=== PATIENT | female | born 1960 | race Caucasian/White ===

== ENCOUNTER 2016-12-16 18:05 | Emergency (ER) | payer BC ==
[2016-12-16 18:45] VITALS: BP 118/89; PULSE 94; O2SAT 96
--- NOTE | 2016-12-16 19:16 | ERPHSYRPT ---
- History of Present Illness Time Seen by Provider: 12/16/16 19:01 Source: patient Exam Limitations: no limitations Patient Subjective Stated Complaint: PT REPORTS SORES BEGINNING IN HER MOUTH A FEW DAYS AGO-STATES THEY ARE NOW SPREAD TO HER THROAT ET OUTSIDE HER MOUTH- PAINFUL TO SWALLOW Triage Nursing Assessment: PT PINK WARM ET [id number] NOTED AROUND LIPS ET CHIN TONGUE-NO DRAINAGE NOTED AT THSI TIME Physician History: FOR THE PAST 5 DAYS PT HAS HAD SORES IN HER MOUTH, A SORE THROAT AND LEFT EARACHE. PT WAS RX'ED VISCOUS LIDOCAINE 2 DAYS AGO BUT THE THROAT IS STILL SORE AND THE LESIONS ARE SPREADING TO THE CHIN. PT DENIES FEVER, CHEST PAIN, VOMITING. Allergies/Adverse Reactions: Iodinated Contrast- Oral and IV Dye [Iodinated Contrast Media - IV Dye] Allergy (Severe, Verified 12/16/16 18:45) Shortness of Breath anaphylaxis Penicillins Allergy (Unknown, Verified 12/16/16 18:45) Rash prednisone Allergy (Unknown, Verified 12/16/16 18:45) Swelling hydrocodone bitartrate [From Vicodin] Adverse Reaction (Mild, Verified 12/16/16 18:45) Vomiting Home Medications: Alprazolam 1 mg [Xanax 1 mg] 1 mg PO TID PRN 02/08/16 [History] Aspirin [Ecotrin] 81 mg PO DAILY 02/08/16 [History] Atorvastatin Calcium [Lipitor 40Mg] 40 mg PO HS 02/08/16 [History] Clopidogrel Bisulfate 75 mg [PLAVIX 75 MG Tablet] 75 mg PO DAILY 02/08/16 [History] Donepezil HCl 10 mg [Aricept 10 MG] 10 mg PO DAILY 02/08/16 [History] Duloxetine HCl 30 mg [Cymbalta 30 MG Capsule] 60 mg PO DAILY 02/08/16 [ History] Esomeprazole Magnesium [Nexium] 40 mg PO DAILY 02/08/16 [History] Famotidine [Pepcid] 40 mg PO DAILY 02/08/16 [History] Isosorbide Mononitrate 30 mg [Imdur 30 MG] 30 mg PO DAILY 02/08/16 [History ] Metoprolol Succinate 25 mg Xl* [Toprol-Xl 25MG Tablets] 25 mg PO DAILY [History] [place]-3 Fatty Acids/Fish Oil [Fish Oil 1,000 mg Capsule] 3,000 mcg PO DAILY 02/08/16 [History] Potassium Chloride 10 Meq Tab* [Klor Con 10 MEQ] 30 meq PO TID 02/08/16 [ History] Torsemide [Demadex] 30 mg PO BREAKFAST 02/08/16 [History] Torsemide 20 mg PO DINNER 02/09/16 [History] Hx Tetanus, Diphtheria Vaccination/Date Given: Yes Hx Influenza Vaccination/Date Given: No Hx Pneumococcal Vaccination/Date Given: No Immunizations Up to Date: Yes - Review of Systems Constitutional: No Fever Ears, Nose, & Throat: Ear Pain (LEFT EARACHE), Throat Pain, Other (MOUTH SORES) Respiratory: No Dyspnea Cardiac: No Chest Pain Abdominal/Gastrointestinal: No Abdominal Pain, No Vomiting Skin: Rash (CHIN) All Other Systems: Reviewed and Negative - Past Medical History Pertinent Past Medical History: Yes Neurological History: Stroke ENT History: Other Cardiac History: Other Respiratory History: Asthma, CHF, COPD Endocrine Medical History: No Pertinent History Musculoskeletal History: Degenerative Disk Disease GI Medical History: GERD History: Other Psycho-Social History: Anxiety, Depression Female Reproductive Disorders: No Pertinent History Other Medical History: Open heart surgery 2010, stint - Past Surgical History Past Surgical History: Yes Neuro Surgical History: No Pertinent History Cardiac: CABG, Cardiac Catheterization, Other Respiratory: No Pertinent History Gastrointestinal: Appendectomy, Bowel Surgery, Cholecystectomy, Exploratory Laparoscopy Genitourinary: No Pertinent History Musculoskeletal: Other Female Surgical History: Section, Hysterectomy Other Surgical History: BOWEL RESECTIONx3 for adhesions. ppins and plate placed in foot and then removed. TRIPLE AAA REPAIR WITH CABG - Social History Smoking Status: Never smoker Exposure to second hand smoke: No Drug Use: none Patient Lives Alone: No - Female History Hx Now: No - Nursing Vital Signs Nursing Vital Signs: Initial Vital Signs Temperature 98.9 F Temperature Source Oral Pulse Rate 94 Respiratory Rate 20 Blood Pressure [Right Arm] 118/89 Pain Intensity 9 - Physical Exam General Appearance: alert Eye Exam: PERRL/EOMI Ears, Nose, Throat Exam: moist mucous membranes, pharyngeal erythema (MILD), other (~ 2-3 MM DIAMETER ULCERS ON MUCOUS MEMBRANES) Neck Exam: normal inspection, full range of motion Respiratory Exam: normal breath sounds, airway intact Cardiovascular Exam: No friction rub Gastrointestinal/Abdomen Exam: soft, normal bowel sounds Back Exam: normal range of motion Extremity Exam: other (NO ANKLE EDEMA) Neurologic Exam: alert, cooperative Skin Exam: other (2-3 MM DIAMETER PAPULES ON CHIN) SpO2 Interpretation: normal SpO2: 96 Oxygen Delivery: Room Air - Course Nursing assessment & vital signs reviewed: Yes Ordered Tests: Medication Summary Discontinued Medications Generic Name Dose Route Start Last Admin Trade Name Freq PRN Reason Stop Dose Admin Clindamycin HCl 300 mg 12/16/16 19:18 Cleocin 150 Mg Capsule PO 12/16/16 19:19 STAT ONE Tramadol HCl 50 mg 12/16/16 19:18 Ultram 50 Mg PO 12/16/16 19:19 STAT ONE - Departure Time of Disposition: 19:29 Departure Disposition: Home Clinical Impression: HERPETIC GINGIVOSTOMATITIS, IMPETIGO, PHARYNGITIS Condition: Stable Critical Care Time: No Instructions: Impetigo, Pharyngitis/Tonsillopharyngitis -- Adult Additional Instructions: FOLLOW UP WITH PRIVATE DOCTOR TOMORROW. Prescriptions: Tramadol HCl 50 mg [Ultram 50 mg] 50 mg PO Q4H PRN PRN #14 tablet PRN Reason: Pain Clindamycin HCl 300 mg PO Q6H #40 capsule
[2016-12-16] MEDS ORDERED: ULTRAM 50 MG PO ONE (19:18)
[2016-12-16] MEDS ORDERED: CLEOCIN 150 MG CAPSULE PO ONE ×2 (19:18→19:29)
[2016-12-16] MEDS ORDERED: CLEOCIN 150 MG CAPSULE ONE ×2 (19:29→19:42)
[2016-12-16] MEDS ORDERED: ULTRAM 50 MG ONE (19:29)
== END 2016-12-16 19:53 | disposition home or self-care (01) ==
LOC: ED 18:05
DX: B00.2 Herpesviral gingivostomatitis and pharyngotonsillitis (principal); L01.00 Impetigo, unspecified; J02.9 Acute pharyngitis, unspecified
CPT/HCPCS: 99283; 99284; A9270-GY

== ENCOUNTER 2017-01-05 12:58 | Inpatient (IN) | payer BC ==
[2017-01-05 13:25] LABS: A-aADO2 37; ARTERIAL BLOOD GAS BASE EXCESS 1.7 (-2.0-2.0); ARTERIAL BLOOD GAS FIO2 21 %; ARTERIAL BLOOD GAS PO2 66 mmHg (75-100); ARTERIAL BLOOD GAS pH 7.45 (7.35-7.45); Lactic Acid 1.4 (0.4-2.0)
[2017-01-05 13:44] LABS: Mean Cell Volume 101.9 fl (78-100); Mean Platelet Volume 10.4 fl (6-9.5); Platelet Count 176 K/mm3 (150-450); Red Blood Count 3.22 M/mm3 (4.1-5.4); Red Cell Distribution Width 14.8 % (11.5-14.0); White Blood Count 10.8 K/mm3 (4.0-10.5)
[2017-01-05 13:48] LABS: Mean Corpuscular Hemoglobin 31.9 pg (26-32)
[2017-01-05] MEDS ORDERED: ROCEPHIN 1 Gm-D5w 50 ml Bag** 1 G/50 ML IVPB IV SCH (14:00)
[2017-01-05] MEDS ORDERED: Zithromax 500 MG/ 250 ML NaCl Premix 500 MG/250 ML IVPB IV SCH (14:00)
[2017-01-05] MEDS ORDERED: Zofran 4 MG/2 ML VIAL IV PRN (14:03)
[2017-01-05] MEDS ORDERED: TYLENOL 325 MG PO PRN (14:03)
[2017-01-05 14:07] LABS: ALBUMIN 3.2 g/dL (3.4-5.0); ALKALINE PHOSPHATASE 77 U/L (46-116); ANION GAP 12.6 MEQ/L (5-15); BLOOD UREA NITROGEN 10 mg/dL (9-20); CHLORIDE 105 mEq/L (98-107); Carbon Dioxide 25.8 mEq/L (21-32); Glucose 127 MG/DL (70-110); Potassium 3.4 mEq/L (3.5-5.1); SGOT/AST 25 U/L (15-37); SGPT/ALT 47 U/L (12-78); SODIUM 140 mEq/L (136-145); Total Protein 6.8 gm/dL (6.4-8.2)
--- NOTE | 2017-01-05 14:18 | PCM.HP ---
History of Present Illness - Chief Complaint Chief Complaint: Pneumonia Date: 01/05/17 History of Present Illness: is a 56 year old female. 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 She still has pain and itching and has developed an ulcer on her left cornea that she is following with optometry and using a patch , drops and ointment. She became very weak and chilling 2 days ago and fever yesterday. She was seen in clinic febrile and CXR showed pneumonia and cbc with bandemia and luekocytosis to 20K. She was started on Levaquin last night and was chilling all night and very short of breath this am and very weak and thus was admitted from home for failed outpatient therapy of her pneumonia. - Review of Systems Constitutional: Fever, Chills, Fatigue Eyes: No Symptoms Ears, Nose, & Throat: No Symptoms Respiratory: Cough, Short Of Breath Cardiac: No Chest Pain, No Edema, No Syncope Abdominal/Gastrointestinal: Nausea, No Abdominal Pain, No Vomiting, No Diarrhea Genitourinary Symptoms: No Dysuria Musculoskeletal: No Back Pain, No Neck Pain Skin: No Rash Neurological: Dizziness, Gait Changes, Other (left facial paralysis ), No Focal Weakness, No Sensory Changes Psychological: No Symptoms Endocrine: No Symptoms Hematologic/Lymphatic: No Symptoms Immunological/Allergic: No Symptoms Medications & Allergies Home Medications: Home Medication List Alprazolam 1 mg [Xanax 1 mg] 1 mg PO TID 01/05/17 [History Confirmed 01/05] Aspirin 81 gm Chew [Baby Aspirin 81 mg Chew] 81 mg PO DAILY 01/05/17 [ History Confirmed 01/05/17] Atorvastatin Calcium [Lipitor] 40 mg PO HS 01/05/17 [History Confirmed 01/05/17] Carboxymethylcell/Hypromellose [Genteal Gel Drops] 15 ml OP HS 01/05/17 [ History Confirmed 01/05/17] Ciprofloxacin 0.3% Ophth [Ciloxan OPHTH] 2.5 ml OP QID 01/05/17 [History Confirmed 01/05/17] Clopidogrel Bisulfate 75 mg [PLAVIX 75 MG Tablet] 75 mg PO DAILY 01/05/17 [History Confirmed 01/05/17] Esomeprazole Magnesium [Nexium] 40 mg PO DAILY 01/05/17 [History Confirmed 01/05] Famotidine [Pepcid] 40 mg PO DAILY 01/05/17 [History Confirmed 01/05/17] Gabapentin 300 mg PO TID 01/05/17 [History Confirmed 01/05/17] Isosorbide Mononitrate 30 mg [Imdur 30 MG] 30 mg PO DAILY 01/05/17 [ History Confirmed 01/05/17] Metoprolol Succinate [Toprol Xl] 25 mg PO DAILY 01/05/17 [History Confirmed ] [place]-3/Dha/Epa/Fish Oil [Fish Oil 1,000 mg Softgel] 3,000 mg PO DAILY 01/05/17 [History Confirmed 01/05/17] Polyethylene Glycol 3350 17 gm [Miralax Powder 17GM PACKET] 17 gm PO DAILY PRN 01/05/17 [History Confirmed 01/05/17] Potassium Chloride 10 Meq Tab* [Klor Con 10 MEQ] 30 meq PO DAILY 01/05/17 [ History Confirmed 01/05/17] Spironolactone 25 mg [Aldactone 25 MG] 25 mg PO BID 01/05/17 [History Confirmed 01/05/17] Torsemide [Demadex] 20 mg PO HS 01/05/17 [History Confirmed 01/05/17] Torsemide [Demadex] 30 mg PO DAILY 01/05/17 [History Confirmed 01/05/17] Tramadol HCl 50 mg [Ultram 50 mg] 50 mg PO Q4HPRN PRN 01/05/17 [History Confirmed 01/05/17] Allergies/Adverse Reactions: Allergies Allergy/AdvReac Type Severity Reaction Status Date / Time Iodinated Contrast- Oral and Allergy Severe Shortness Verified 12/16/16 18:45 IV Dye of Breath [Iodinated Contrast Media - IV Dye] Penicillins Allergy Unknown Rash Verified 12/16/16 18:45 prednisone Allergy Unknown Swelling Verified 12/16/16 18:45 hydrocodone bitartrate AdvReac Mild Vomiting Verified 12/16/16 18:45 [From Vicodin] - Past Medical History Past Medical History: Yes Neurological History: Seizures, Stroke ENT History: Other Cardiac History: Congestive Heart Failure, High Cholesterol, Hypertension, Other Respiratory History: Asthma, CHF, COPD Endocrine Medical History: No Pertinent History Musculoskelatal History: Degenerative Disk Disease GI Medical History: GERD History: Other Pyscho-Social History: Anxiety, Depression Reproductive Disorders: No Pertinent History Comment: Open heart surgery 2010, stint, ulcers in the L eye - Past Surgical History Past Surgical History: Yes Neuro Surgical History: No Pertinent History Cardiac History: CABG, Cardiac Catheterization, Cardiac Stent, Valve Replacement , Other Respiratory Surgery: No Pertinent History GI Surgical History: Appendectomy, Bowel Surgery, Cholecystectomy, Exploratory Laparoscopy Genitourinary Surgical Hx: No Pertinent History Musculskeletal Surgical Hx: Other Female Surgical History: Section, Hysterectomy Other Surgical History: BOWEL RESECTIONx3 for adhesions. ppins and plate placed in foot and then removed. TRIPLE AAA REPAIR WITH CABG. Valve Repair 2009 - Social History Smoking Status: Never smoker Exposure to second hand smoke: No Alcohol: None Drug Use: none - Physical Exam General Appearance: no apparent distress, alert Neurologic Exam: alert, oriented x 3, cooperative, normal mood/affect, sensation nml, facial droop (left sided complete CN VII palsy including left forhead.), slurred speech, No motor deficits Eye Exam: PERRL/EOMI, eyes nml inspection, other (unable to keep left eye closed ) Ears, Nose, Throat Exam: normal ENT inspection, TMs normal, pharynx normal, moist mucous membranes Neck Exam: normal inspection, non-tender, supple, full range of motion Respiratory Exam: normal breath sounds, lungs clear, No respiratory distress Cardiovascular Exam: regular rate/rhythm, normal heart sounds, normal peripheral pulses Gastrointestinal/Abdomen Exam: soft, normal bowel sounds, No tenderness, No mass Back Exam: normal inspection, normal range of motion, No CVA tenderness, No vertebral tenderness Extremity Exam: normal inspection, normal range of motion, pelvis stable Skin Exam: normal color, warm, dry, No rash Lymphatic Exam: No adenopathy Results - Labs Lab/Micro Results: Lab Results-Last 24 Hours 01/05/17 01/05/17 01/05/17 Range/Units 13:20 13:31 13:40 WBC 10.8 H (4.0-10.5) K/mm3 RBC 3.22 L (4.1-5.4) M/mm3 Hgb 10.3 L (12.0-16.0) gm/dl Hct 32.8 L (35-47) % MCV 101.9 H (78-100) fl MCH 31.9 (26-32) pg MCHC 31.4 L (32-36) g/dl RDW 14.8 H (11.5-14.0) % Plt Count 176 (150-450) K/mm3 MPV 10.4 H (6-9.5) fl Puncture Site LEFT BRACHIAL pCO2 37 (35-45) mmHg pO2 66 L (75-100) mmHg Base Excess 1.7 (-2.0-2.0) O2 Saturation 94.3 (94-100) g/dF ABG pH 7.45 (7.35-7.45) ABG HCO3 25.7 (22-28) ABG O2 Sat (Measured) 96.0 (95-100) % Josué Test NOT APPLICABLE A-a Gradient 37 a/A Ratio 0.64 Hemoglobin 10.9 Carboxyhemoglobin 1.2 (0.0-6.9) % THgb Methemoglobin 0.6 L (1.4-1.5) % Potassium 3.5 3.4 L (3.5-5.1) Temperature 37.0 C POC O2 Flow Rate 21 % Sodium 140 (136-145) mEq/L Chloride 105 (98-107) mEq/L Carbon Dioxide 25.8 (21-32) mEq/L Anion Gap 12.6 (5-15) MEQ/L BUN 10 (9-20) mg/dL Creatinine 0.86 (0.55-1.30) mg/dl Estimated GFR > 60 ML/MIN Glucose 127 H (70-110) MG/DL Lactic Acid 1.4 (0.4-2.0) Calcium 9.2 (8.5-10.1) mg/dL Total Bilirubin 0.50 (0.2-1.0) mg/dL AST 25 (15-37) U/L ALT 47 (12-78) U/L Alkaline Phosphatase 77 (46-116) U/L Serum Total Protein 6.8 (6.4-8.2) gm/dL Albumin 3.2 L (3.4-5.0) g/dL - Other Procedures and Tests Respiratory Therapy 01/05/17 14:03 Respiratory Therapy Consult ROUTINE Assessment/Plan (1) Pneumonia Current Visit: Yes Status: Acute Qualifiers: Laterality: right Lung location: upper lobe of lung Assessment & Plan: she was complaining of worsening shortness of breath and weakness at home on Levaquin stated yesterday no dose yet today wbc improving afebrile now will continue Levaquin for now and monitor symptoms inpatient for failed outpatient treatment expand coverage if worsening or not improving with her recent hospitalization at [facility] continue home meds lovenox for ppx is following with optometry in [place] for corneal ulcer continue the drops and ointment Code(s): J18.9 - PNEUMONIA, UNSPECIFIED ORGANISM (2) Grajeda's palsy Current Visit: Yes Status: Acute Code(s): G51.0 - GRAJEDA'S PALSY (3) Post herpetic neuralgia Current Visit: Yes Status: Acute Code(s): B02.29 - OTHER POSTHERPETIC NERVOUS SYSTEM INVOLVEMENT (4) Coronary artery disease Current Visit: Yes Status: Chronic Qualifiers: Coronary Disease-Associated Artery/Lesion type: [place] artery [place] vs. transplanted heart: [place] heart Associated angina: with stable angina Qualified Code(s): I25.119 - Atherosclerotic heart disease of [place] coronary artery with unspecified angina pectoris Code(s): I25.10 - ATHSCL HEART DISEASE OF [place] CORONARY ARTERY W/O ANG PCTRS (5) Chronic congestive heart failure Current Visit: Yes Status: Chronic Qualifiers: Congestive heart failure type: diastolic Qualified Code(s): I50.32 - Chronic diastolic (congestive) heart failure Code(s): I50.9 - HEART FAILURE, UNSPECIFIED (6) Anxiety Current Visit: Yes Status: Chronic Code(s): F41.9 - ANXIETY DISORDER, UNSPECIFIED (7) Hypertension Current Visit: Yes Status: Chronic Code(s): I10 - ESSENTIAL (PRIMARY) HYPERTENSION (8) CVA, old, cognitive deficits Current Visit: Yes Status: Chronic Code(s): I69.31 - COGNITIVE DEFICITS FOLLOWING CEREBRAL INFARCT * DO NOT USE * (9) Chronic stable angina Current Visit: Yes Status: Chronic Code(s): I20.9 - ANGINA PECTORIS, UNSPECIFIED
[2017-01-05] MEDS ORDERED: Sodium Chloride 0.9% 10 ML FLUSH Syringe IV PRN (14:32)
[2017-01-05] MEDS ORDERED: Miralax Powder 17GM PACKET PO PRN (14:34)
[2017-01-05 14:38] LABS: Total Cells Counted 100
[2017-01-05 14:39] LABS: Platelet Estimate NORMAL (NORMAL)
[2017-01-05] MEDS: ENOXAPARIN SODIUM SQ SCH (14:58)
[2017-01-05] MEDS: Levofloxacin 500MG/100ML D5W 500 MG/100 ML BAG IV SCH (14:58)
[2017-01-05] MEDS: ULTRAM 50 MG PO PRN ×2 (14:58→19:31)
[2017-01-05] MEDS ORDERED: Neurontin 100 MG PO SCH (15:00)
[2017-01-05] MEDS: NEURONTIN 300 MG PO SCH ×2 (15:04→21:43)
[2017-01-05] MEDS: XANAX 1 MG PO SCH ×2 (15:04→21:43)
[2017-01-05] MEDS ORDERED: PROVENTIL 2.5 MG/3 ML NEB IH ONE ×2 (15:18→15:30)
[2017-01-05] MEDS ORDERED: PROVENTIL 2.5 MG/3 ML NEB IH PRN (16:05)
[2017-01-05] MEDS: Ciloxan OPHTH OP SCH ×2 (16:43→21:46)
[2017-01-05] MEDS ORDERED: PROVENTIL 2.5 MG/3 ML NEB IH SCH (19:00)
[2017-01-05] MEDS: Aldactone 25 MG PO SCH (21:39)
[2017-01-05] MEDS ORDERED: TORSEMIDE 20 MG PO SCH (22:00)
[2017-01-05] MEDS ORDERED: Artificial Tears 15 ML OP SCH (22:00)
[2017-01-05] MEDS ORDERED: CARBOXYMETHYLCELLULOSE OP SCH (22:00)
[2017-01-05] MEDS ORDERED: LIPITOR 40MG PO SCH (22:00)
[2017-01-05] MEDS ORDERED: HYPROMELLOSE OP SCH (22:00)
[2017-01-05] MEDS ORDERED: DEMADEX 20 MG PO SCH (22:00)
[2017-01-05] MEDS ORDERED: Sodium Chloride 0.9% 10 ML FLUSH Syringe IV SCH (22:00)
[2017-01-06] MEDS: ULTRAM 50 MG PO PRN (05:27)
[2017-01-06 05:50] LABS: Mean Cell Volume 102.5 fl (78-100); Mean Platelet Volume 10.7 fl (6-9.5); Platelet Count 167 K/mm3 (150-450); Red Blood Count 3.15 M/mm3 (4.1-5.4); Red Cell Distribution Width 14.9 % (11.5-14.0); White Blood Count 8.7 K/mm3 (4.0-10.5)
[2017-01-06 06:00] LABS: ANION GAP 12.7 MEQ/L (5-15); Carbon Dioxide 28.4 mEq/L (21-32); Potassium 3.8 mEq/L (3.5-5.1)
[2017-01-06] MEDS ORDERED: Xopenex 1.25 MG/0.5 ML UD NEBULE IH ONE ×2 (06:46→06:48)
[2017-01-06] MEDS ORDERED: Sodium Chloride 3 ML UD NEBULES IH ONE (06:46)
[2017-01-06 07:37] VITALS: BP 115/53; PULSE 98; O2SAT 94
--- NOTE | 2017-01-06 08:13 | PCM.NOTE ---
Date and Time: 01/06/17812 OBJECTIVE DATA Vital Signs: Vital Signs - 24 hr Temp Pulse Resp BP Pulse Ox 01/06/17 07:00 98.0 F 98 H 18 115/53 94 L 01/06/17 06:48 91 H 18 97 01/06/17 03:45 98.3 F 97 H 17 90/54 96 01/06/17 00:00 100.0 F 102 H 17 98/56 98 01/05/17 20:00 98.9 F 89 18 101/59 96 01/05/17 19:08 90 14 95 01/05/17 16:00 18 01/05/17 15:57 112 H 18 97 01/05/17 15:47 97.8 F 88 20 92/53 98 01/05/17 14:00 98.2 F 89 20 109/58 Pain Assessment - Last Documented Pain Intensity 6 Pain Scale Used 0-10 Pain Scale Intake and Output: Intake & Output 01/03/17 01/04/17 01/05/17 01/06/17 11:59 11:59 11:59 11:59 Intake Total 840 Balance 840 Weight 86.772 kg Lab Results: Lab Results-Last 24 Hours 01/05/17 01/05/17 01/05/17 Range/Units 13:20 13:31 13:40 WBC 10.8 H (4.0-10.5) K/mm3 RBC 3.22 L (4.1-5.4) M/mm3 Hgb 10.3 L (12.0-16.0) gm/dl Hct 32.8 L (35-47) % MCV 101.9 H (78-100) fl MCH 31.9 (26-32) pg MCHC 31.4 L (32-36) g/dl RDW 14.8 H (11.5-14.0) % Plt Count 176 (150-450) K/mm3 MPV 10.4 H (6-9.5) fl Segmented Neutrophils 81 H (36.0-66.0) % Lymphocytes (Manual) 15 L (24-44) % Monocytes (Manual) 4 (0.0-12.0) % Differential Comment NORMAL Platelet Estimate NORMAL (NORMAL) Puncture Site LEFT BRACHIAL pCO2 37 (35-45) mmHg pO2 66 L (75-100) mmHg Base Excess 1.7 (-2.0-2.0) O2 Saturation 94.3 (94-100) g/dF ABG pH 7.45 (7.35-7.45) ABG HCO3 25.7 (22-28) ABG O2 Sat (Measured) 96.0 (95-100) % Josué Test NOT APPLICABLE A-a Gradient 37 a/A Ratio 0.64 Hemoglobin 10.9 Carboxyhemoglobin 1.2 (0.0-6.9) % THgb Methemoglobin 0.6 L (1.4-1.5) % Potassium 3.5 3.4 L (3.5-5.1) Temperature 37.0 C POC O2 Flow Rate 21 % Sodium 140 (136-145) mEq/L Chloride 105 (98-107) mEq/L Carbon Dioxide 25.8 (21-32) mEq/L Anion Gap 12.6 (5-15) MEQ/L BUN 10 (9-20) mg/dL Creatinine 0.86 (0.55-1.30) mg/dl Estimated GFR > 60 ML/MIN Glucose 127 H (70-110) MG/DL Lactic Acid 1.4 (0.4-2.0) Calcium 9.2 (8.5-10.1) mg/dL Total Bilirubin 0.50 (0.2-1.0) mg/dL AST 25 (15-37) U/L ALT 47 (12-78) U/L Alkaline Phosphatase 77 (46-116) U/L Serum Total Protein 6.8 (6.4-8.2) gm/dL Albumin 3.2 L (3.4-5.0) g/dL 01/06/17 01/06/17 Range/Units 05:43 05:43 WBC 8.7 (4.0-10.5) K/mm3 RBC 3.15 L (4.1-5.4) M/mm3 Hgb 10.1 L (12.0-16.0) gm/dl Hct 32.3 L (35-47) % MCV 102.5 H (78-100) fl MCH 32.0 (26-32) pg MCHC 31.3 L (32-36) g/dl RDW 14.9 H (11.5-14.0) % Plt Count 167 (150-450) K/mm3 MPV 10.7 H (6-9.5) fl Segmented Neutrophils (36.0-66.0) % Lymphocytes (Manual) (24-44) % Monocytes (Manual) (0.0-12.0) % Differential Comment Platelet Estimate (NORMAL) Puncture Site pCO2 (35-45) mmHg pO2 (75-100) mmHg Base Excess (-2.0-2.0) O2 Saturation (94-100) g/dF ABG pH (7.35-7.45) ABG HCO3 (22-28) ABG O2 Sat (Measured) (95-100) % Josué Test A-a Gradient a/A Ratio Hemoglobin Carboxyhemoglobin (0.0-6.9) % THgb Methemoglobin (1.4-1.5) % Potassium 3.8 (3.5-5.1) Temperature C POC O2 Flow Rate % Sodium 140 (136-145) mEq/L Chloride 103 (98-107) mEq/L Carbon Dioxide 28.4 (21-32) mEq/L Anion Gap 12.7 (5-15) MEQ/L BUN 7 L (9-20) mg/dL Creatinine 1.09 (0.55-1.30) mg/dl Estimated GFR 55 ML/MIN Glucose 126 H (70-110) MG/DL Lactic Acid (0.4-2.0) Calcium 9.1 (8.5-10.1) mg/dL Total Bilirubin (0.2-1.0) mg/dL AST (15-37) U/L ALT (12-78) U/L Alkaline Phosphatase (46-116) U/L Serum Total Protein (6.4-8.2) gm/dL Albumin (3.4-5.0) g/dL Assessment/Plan (1) Pneumonia Current Visit: Yes Status: Acute Qualifiers: Laterality: right Lung location: upper lobe of lung Code(s): J18.9 - PNEUMONIA, UNSPECIFIED ORGANISM (2) Grajeda's palsy Current Visit: Yes Status: Acute Code(s): G51.0 - GRAJEDA'S PALSY (3) Post herpetic neuralgia Current Visit: Yes Status: Acute Code(s): B02.29 - OTHER POSTHERPETIC NERVOUS SYSTEM INVOLVEMENT (4) Coronary artery disease Current Visit: Yes Status: Chronic Qualifiers: Coronary Disease-Associated Artery/Lesion type: [place] artery [place] vs. transplanted heart: [place] heart Associated angina: with stable angina Qualified Code(s): I25.119 - Atherosclerotic heart disease of [place] coronary artery with unspecified angina pectoris Code(s): I25.10 - ATHSCL HEART DISEASE OF [place] CORONARY ARTERY W/O ANG PCTRS (5) Chronic congestive heart failure Current Visit: Yes Status: Chronic Qualifiers: Congestive heart failure type: diastolic Qualified Code(s): I50.32 - Chronic diastolic (congestive) heart failure Code(s): I50.9 - HEART FAILURE, UNSPECIFIED (6) Anxiety Current Visit: Yes Status: Chronic Code(s): F41.9 - ANXIETY DISORDER, UNSPECIFIED (7) Hypertension Current Visit: Yes Status: Chronic Code(s): I10 - ESSENTIAL (PRIMARY) HYPERTENSION (8) CVA, old, cognitive deficits Current Visit: Yes Status: Chronic Code(s): I69.31 - COGNITIVE DEFICITS FOLLOWING CEREBRAL INFARCT * DO NOT USE * (9) Chronic stable angina Current Visit: Yes Status: Chronic Code(s): I20.9 - ANGINA PECTORIS, UNSPECIFIED
--- NOTE | 2017-01-06 08:21 | PCM.DS ---
Discharge Summary Date of Admission: 01/05/17 12:58 Date of Discharge: 01/06/17 Admitting Physician: ALL PARK Primary Care Provider: ALL PARK Allergies Allergies Iodinated Contrast- Oral and IV Dye [Iodinated Contrast Media - IV Dye] Allergy (Severe, Verified 12/16/16 18:45) Shortness of Breath anaphylaxis Penicillins Allergy (Unknown, Verified 12/16/16 18:45) Rash prednisone Allergy (Unknown, Verified 12/16/16 18:45) Swelling hydrocodone bitartrate [From Vicodin] Adverse Reaction (Mild, Verified 12/16/16 18:45) Vomiting Hospital Summary - Hospital Course Hospital Course: She was seen Wednesday in clinic and febrile tachycardic and weak and dizzy. Work up found pneumonia with luekocytosis and bandemia. On follow up phone call on Wednesday she stated she was very short of breath and her caregiver was considering taking her to the ER. She was sent for direct admission. SHe had been started on Levoquin on Wednesday. It had improved her wbc and bandemia and thus was continued. She had Tmax of 100.2 overnight but overall continued to feel better and her tachycardia and fever had improved she was tolerating po. She felt comfortable to discharge to home. 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 Her chronic diastolic heart failure and chronic stable angina were stable and fluids were restricted for these reasons. Her chronic hypokalemia was also controlled on her home meds. - Vitals & Intake/Output Vital Signs: Vital Signs Temperature 98.0 F 01/06/17 07:00 Pulse Rate 98 H 01/06/17 07:00 Respiratory Rate 18 01/06/17 07:00 Blood Pressure 115/53 01/06/17 07:00 O2 Sat by Pulse Oximetry 94 L 01/06/17 07:00 Intake & Output: Intake & Output 01/03/17 01/04/17 01/05/17 01/06/17 11:59 11:59 11:59 11:59 Intake Total 840 Balance 840 Weight 86.772 kg - Lab Result Diagrams: 01/06/17 05:43 01/06/17 05:43 Lab Results-Last 24 Hrs: Lab Results-Last 24 Hours 01/05/17 01/05/17 01/05/17 Range/Units 13:20 13:31 13:40 WBC 10.8 H (4.0-10.5) K/mm3 RBC 3.22 L (4.1-5.4) M/mm3 Hgb 10.3 L (12.0-16.0) gm/dl Hct 32.8 L (35-47) % MCV 101.9 H (78-100) fl MCH 31.9 (26-32) pg MCHC 31.4 L (32-36) g/dl RDW 14.8 H (11.5-14.0) % Plt Count 176 (150-450) K/mm3 MPV 10.4 H (6-9.5) fl Segmented Neutrophils 81 H (36.0-66.0) % Lymphocytes (Manual) 15 L (24-44) % Monocytes (Manual) 4 (0.0-12.0) % Differential Comment NORMAL Platelet Estimate NORMAL (NORMAL) Puncture Site LEFT BRACHIAL pCO2 37 (35-45) mmHg pO2 66 L (75-100) mmHg Base Excess 1.7 (-2.0-2.0) O2 Saturation 94.3 (94-100) g/dF ABG pH 7.45 (7.35-7.45) ABG HCO3 25.7 (22-28) ABG O2 Sat (Measured) 96.0 (95-100) % Josué Test NOT APPLICABLE A-a Gradient 37 a/A Ratio 0.64 Hemoglobin 10.9 Carboxyhemoglobin 1.2 (0.0-6.9) % THgb Methemoglobin 0.6 L (1.4-1.5) % Potassium 3.5 3.4 L (3.5-5.1) Temperature 37.0 C POC O2 Flow Rate 21 % Sodium 140 (136-145) mEq/L Chloride 105 (98-107) mEq/L Carbon Dioxide 25.8 (21-32) mEq/L Anion Gap 12.6 (5-15) MEQ/L BUN 10 (9-20) mg/dL Creatinine 0.86 (0.55-1.30) mg/dl Estimated GFR > 60 ML/MIN Glucose 127 H (70-110) MG/DL Lactic Acid 1.4 (0.4-2.0) Calcium 9.2 (8.5-10.1) mg/dL Total Bilirubin 0.50 (0.2-1.0) mg/dL AST 25 (15-37) U/L ALT 47 (12-78) U/L Alkaline Phosphatase 77 (46-116) U/L Serum Total Protein 6.8 (6.4-8.2) gm/dL Albumin 3.2 L (3.4-5.0) g/dL 01/06/17 01/06/17 Range/Units 05:43 05:43 WBC 8.7 (4.0-10.5) K/mm3 RBC 3.15 L (4.1-5.4) M/mm3 Hgb 10.1 L (12.0-16.0) gm/dl Hct 32.3 L (35-47) % MCV 102.5 H (78-100) fl MCH 32.0 (26-32) pg MCHC 31.3 L (32-36) g/dl RDW 14.9 H (11.5-14.0) % Plt Count 167 (150-450) K/mm3 MPV 10.7 H (6-9.5) fl Segmented Neutrophils (36.0-66.0) % Lymphocytes (Manual) (24-44) % Monocytes (Manual) (0.0-12.0) % Differential Comment Platelet Estimate (NORMAL) Puncture Site pCO2 (35-45) mmHg pO2 (75-100) mmHg Base Excess (-2.0-2.0) O2 Saturation (94-100) g/dF ABG pH (7.35-7.45) ABG HCO3 (22-28) ABG O2 Sat (Measured) (95-100) % Josué Test A-a Gradient a/A Ratio Hemoglobin Carboxyhemoglobin (0.0-6.9) % THgb Methemoglobin (1.4-1.5) % Potassium 3.8 (3.5-5.1) Temperature C POC O2 Flow Rate % Sodium 140 (136-145) mEq/L Chloride 103 (98-107) mEq/L Carbon Dioxide 28.4 (21-32) mEq/L Anion Gap 12.7 (5-15) MEQ/L BUN 7 L (9-20) mg/dL Creatinine 1.09 (0.55-1.30) mg/dl Estimated GFR 55 ML/MIN Glucose 126 H (70-110) MG/DL Lactic Acid (0.4-2.0) Calcium 9.1 (8.5-10.1) mg/dL Total Bilirubin (0.2-1.0) mg/dL AST (15-37) U/L ALT (12-78) U/L Alkaline Phosphatase (46-116) U/L Serum Total Protein (6.4-8.2) gm/dL Albumin (3.4-5.0) g/dL - Procedures and Test Procedures and Tests throughout Hospitalization: Therapy Orders & Screens 01/05/17 14:03 Respiratory Therapy Consult ROUTINE Comment: Reason For Exam: Diagnosis: Pneumonia 01/05/17 14:28 RT Screen per Nursing Assess ONCE Comment: Protocol Order Physician Instructions: Greater than 3 points order RT Admission Screen Reason For Exam: Triggered on Admission Diagnosis: Pneumonia Diagnosis: Pneumonia Pneumonia: Yes Home O2: No Asthma: Yes CHF: Yes Home CPAP/BIPAP: No Home Nebs/MDI: Yes Total Points: 15 ST Screen per Nursing Assess once Comment: Protocol Order Physician Instructions: Greater than [address] Admission Screening Reason For Exam: Triggered on Admission Diagnosis: Pneumonia CVA/Dyshpagia/Aphasia: No Cognitive Deficits: No Dehydration/Nutrition Deficit: No Reflux: No Oral-Motor Difficulties: Yes Pneumonia: Yes Mcfp Resident: No Total Points: 8 01/05/17 16:01 Respiratory Nebulizer PRN Comment: Diagnosis: Pneumonia 01/06/17 06:48 Respiratory Nebulizer UD Comment: Diagnosis: Pneumonia 01/06/17 06:56 Respiratory Nebulizer TID Comment: Diagnosis: Pneumonia Discharge Exam General Appearance: no apparent distress, alert Neurologic Exam: alert, oriented x 3, cooperative, normal mood/affect, nml cerebellar function, other (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) Skin Exam: normal color, warm, dry Eye Exam: PERRL, EOMI, No scleral icterus, No pale conjunctivae Ears, Nose, Throat Exam: normal ENT inspection, pharynx normal, moist mucous membranes Neck Exam: normal inspection, non-tender, supple, full range of motion Respiratory Exam: normal breath sounds, lungs clear, No respiratory distress Cardiovascular Exam: regular rate/rhythm, normal heart sounds, murmur Gastrointestinal/Abdomen Exam: soft, No tenderness, No mass Extremity Exam: normal inspection, normal range of motion Back Exam: normal inspection, normal range of motion, No CVA tenderness, No vertebral tenderness Pelvic Exam: deferred Rectal Exam: deferred Final Diagnosis/Problem List - Final Discharge Diagnosis/Problem (1) Pneumonia Status: Acute (2) Shah's palsy Status: Acute (3) Post herpetic neuralgia Status: Acute (4) Coronary artery disease Status: Chronic (5) Chronic congestive heart failure Status: Chronic (6) Anxiety Status: Chronic (7) Hypertension Status: Chronic (8) CVA, old, cognitive deficits Status: Chronic (9) Chronic stable angina Status: Chronic - Discharge Discharge Date: 01/06/17 Disposition: Home, Self-Care Condition: Stable Prescriptions: New Levofloxacin [Levofloxacin 500 MG Tablet] 500 mg PO DAILY #0 tablet Promethazine HCl 25 mg [Phenergan 25 mg] 25 mg PO Q4H PRN #20 tablet PRN Reason: Nausea Continue Ciprofloxacin 0.3% Ophth [Ciloxan OPHTH] 2.5 ml OP QID Tramadol HCl 50 mg [Ultram 50 mg] 50 mg PO Q4HPRN PRN PRN Reason: Pain Gabapentin 300 mg PO TID Spironolactone 25 mg [Aldactone 25 MG] 25 mg PO BID Polyethylene Glycol 3350 17 gm [Miralax Powder 17GM PACKET] 17 gm PO DAILY PRN PRN Reason: Constipation Metoprolol Succinate [Toprol Xl] 25 mg PO DAILY Torsemide [Demadex] 20 mg PO HS Torsemide [Demadex] 30 mg PO DAILY Isosorbide Mononitrate 30 mg [Imdur 30 MG] 30 mg PO DAILY Potassium Chloride 10 Meq Tab* [Klor Con 10 MEQ] 30 meq PO DAILY [place]-3/Dha/Epa/Fish Oil [Fish Oil 1,000 mg Softgel] 3,000 mg PO DAILY Esomeprazole Magnesium [Nexium] 40 mg PO DAILY Famotidine [Pepcid] 40 mg PO DAILY Clopidogrel Bisulfate 75 mg [PLAVIX 75 MG Tablet] 75 mg PO DAILY Atorvastatin Calcium [Lipitor] 40 mg PO HS Aspirin 81 gm Chew [Baby Aspirin 81 mg Chew] 81 mg PO DAILY Alprazolam 1 mg [Xanax 1 mg] 1 mg PO TID Carboxymethylcell/Hypromellose [Genteal Gel Drops] 15 ml OP HS Instructions: Pneumonia -- Adult Follow up with: ALL PARK [Primary Care Provider] - 01/13/17 10:00 am Forms: Discharge Instructions, Patient Portal Information
[2017-01-06] MEDS: XANAX 1 MG PO SCH (09:33)
[2017-01-06] MEDS: NEURONTIN 300 MG PO SCH (09:34)
[2017-01-06] MEDS: Aldactone 25 MG PO SCH (09:35)
[2017-01-06] MEDS: Ciloxan OPHTH OP SCH (09:36)
[2017-01-06] MEDS: ENOXAPARIN SODIUM SQ SCH (09:39)
[2017-01-06] MEDS: Levofloxacin 500MG/100ML D5W 500 MG/100 ML BAG IV SCH (09:40)
[2017-01-06] MEDS ORDERED: DEMADEX 20 MG PO SCH (10:00)
[2017-01-06] MEDS ORDERED: Protonix 40MG Tablet PO SCH (10:00)
[2017-01-06] MEDS ORDERED: FISH OIL 1,000 MG CAPSULE PO SCH (10:00)
[2017-01-06] MEDS ORDERED: Pepcid 20 MG PO SCH (10:00)
[2017-01-06] MEDS ORDERED: NON-FORMULARY ITEM (Famotidine [Pepcid] 40 MG) PO SCH (10:00)
[2017-01-06] MEDS ORDERED: EPA PO SCH (10:00)
[2017-01-06] MEDS ORDERED: Imdur 30 MG PO SCH (10:00)
[2017-01-06] MEDS ORDERED: PLAVIX 75 MG Tablet PO SCH (10:00)
[2017-01-06] MEDS ORDERED: TORSEMIDE PO SCH (10:00)
[2017-01-06] MEDS ORDERED: Xopenex 1.25 MG/0.5 ML UD NEBULE IH SCH (10:00)
[2017-01-06] MEDS ORDERED: DHA PO SCH (10:00)
[2017-01-06] MEDS ORDERED: FISH OIL PO SCH (10:00)
[2017-01-06] MEDS ORDERED: OMEGA PO SCH (10:00)
[2017-01-06] MEDS ORDERED: NON-FORMULARY ITEM (Esomeprazole Magnesium [Nexium] 40 MG) PO SCH (10:00)
[2017-01-06] MEDS ORDERED: Toprol-Xl 25MG Tablets PO SCH (10:00)
[2017-01-06] MEDS ORDERED: Klor Con 10 MEQ PO SCH (10:00)
[2017-01-06] MEDS ORDERED: ECOTRIN 81 MG PO SCH (10:00)
[2017-01-06] MEDS ORDERED: BABY ASPIRIN 81 MG CHEW PO SCH (10:00)
== END 2017-01-06 10:04 | disposition home or self-care (01) | DRG 194 ==
LOC: MED SURG 12:58
PROVIDERS: ADMIT Family Medicine; ATTEND Family Medicine
DX: J18.9 Pneumonia, unspecified organism (principal); I50.32 Chronic diastolic (congestive) heart failure; G58.8 Other specified mononeuropathies; G51.0 Bell's palsy; I25.10 Atherosclerotic heart disease of native coronary artery without angina pectoris; I11.0 Hypertensive heart disease with heart failure; F41.9 Anxiety disorder, unspecified; I69.319 Unspecified symptoms and signs involving cognitive functions following cerebral infarction; I20.8 Other forms of angina pectoris; I25.119 Atherosclerotic heart disease of native coronary artery with unspecified angina pectoris
CPT/HCPCS: 36415; 36600; 80048; 80053; 82375; 82803; 83605; 85025; 85027; 94640; 94760; J1650; J1956; J2405; A9270-GY

== ENCOUNTER 2017-10-24 11:37 | Emergency (ER) | payer MEDICARE ==
--- NOTE | 2017-10-24 11:52 | ERPHSYRPT ---
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, suddenly could not speak or stand, appeared confused to the family, no emesis, no fever, hx cva w/ left facial droop 2 yrs ago, hx AVR, no dm Time of Onset/Last Time Seen Normal: 10 correctional captain Timing/Duration: today, constant Severity: moderate Character of Deficits: impaired speech, unable to speak Allergies/Adverse Reactions: Iodinated Contrast- Oral and IV Dye [Iodinated Contrast Media - IV Dye] Allergy (Severe, Verified 10/24/17 11:55) Shortness of Breath anaphylaxis Penicillins Allergy (Unknown, Verified 10/24/17 11:55) Rash prednisone Allergy (Unknown, Verified 10/24/17 11:55) Swelling hydrocodone bitartrate [From Vicodin] Adverse Reaction (Mild, Verified 10/24/17 11:55) Vomiting Home Medications: Alprazolam 1 mg [Xanax 1 mg] 1 mg PO TID 01/05/17 [History] Aspirin 81 gm Chew [Baby Aspirin 81 mg Chew] 81 mg PO DAILY 01/05/17 [ History] Atorvastatin Calcium [Lipitor] 40 mg PO HS 01/05/17 [History] Carboxymethylcell/Hypromellose [Genteal Gel Drops] 15 ml OP HS 01/05/17 [History ] Ciprofloxacin 0.3% Ophth [Ciloxan OPHTH] 2.5 ml OP QID 01/05/17 [History] Clopidogrel Bisulfate 75 mg [PLAVIX 75 MG Tablet] 75 mg PO DAILY 01/05/17 [History] Esomeprazole Magnesium [Nexium] 40 mg PO DAILY 01/05/17 [History] Famotidine [Pepcid] 40 mg PO DAILY 01/05/17 [History] Gabapentin 300 mg PO TID 01/05/17 [History] Isosorbide Mononitrate 30 mg [Imdur 30 MG] 30 mg PO DAILY 01/05/17 [History ] Metoprolol Succinate [Toprol Xl] 25 mg PO DAILY 01/05/17 [History] [place]-3/Dha/Epa/Fish Oil [Fish Oil 1,000 mg Softgel] 3,000 mg PO DAILY 01/05/17 [History] Polyethylene Glycol 3350 17 gm [Miralax Powder 17GM PACKET] 17 gm PO DAILY PRN 01/05/17 [History] Potassium Chloride 10 Meq Tab* [Klor Con 10 MEQ] 30 meq PO DAILY 01/05/17 [ History] Spironolactone 25 mg [Aldactone 25 MG] 25 mg PO BID 01/05/17 [History] Torsemide [Demadex] 20 mg PO HS 01/05/17 [History] Torsemide [Demadex] 30 mg PO DAILY 01/05/17 [History] Tramadol HCl 50 mg [Ultram 50 mg] 50 mg PO Q4HPRN PRN 01/05/17 [History] Hx Tetanus, Diphtheria Vaccination/Date Given: Yes Hx Influenza Vaccination/Date Given: No Hx Pneumococcal Vaccination/Date Given: No - Review of Systems Constitutional: No Fever Respiratory: No Cyanosis Abdominal/Gastrointestinal: No Vomiting Psychological: Other (pt unable to provide ros) - Past Medical History Pertinent Past Medical History: Yes Neurological History: Seizures, Stroke ENT History: Other Cardiac History: Congestive Heart Failure, High Cholesterol, Hypertension, Other Respiratory History: Asthma, CHF, COPD Endocrine Medical History: No Pertinent History Musculoskeletal History: Degenerative Disk Disease GI Medical History: GERD History: Other Psycho-Social History: Anxiety, Depression Female Reproductive Disorders: No Pertinent History Other Medical History: Open heart surgery 2010, stint, ulcers in the L eye - Past Surgical History Past Surgical History: Yes Neuro Surgical History: No Pertinent History Cardiac: CABG, Cardiac Catheterization, Cardiac Stent, Valve Replacement, Other Respiratory: No Pertinent History Gastrointestinal: Appendectomy, Bowel Surgery, Cholecystectomy, Exploratory Laparoscopy Genitourinary: No Pertinent History Musculoskeletal: Other Female Surgical History: Section, Hysterectomy Other Surgical History: BOWEL RESECTIONx3 for adhesions. ppins and plate placed in foot and then removed. TRIPLE AAA REPAIR WITH CABG. Valve Repair 2009 - Social History Smoking Status: Never smoker How long have you smoked: 0 Exposure to second hand smoke: No Drug Use: none Patient Lives Alone: No - Nursing Vital Signs Nursing Vital Signs: Initial Vital Signs O2 Sat by Pulse Oximetry 98 10/24/17 12:08 Pain Scale Pain Intensity 0 - Elliot Coma Scale Best Eye Response (Elliot): (4) open spontaneously Best Verbal Response ([place]): (2) incomprehsible sounds Best Motor Response ([place]): (6) obeys commands [place] Total: 12 - Physical Exam General Appearance: no apparent distress Eye Exam: bilateral eye: PERRL (equal) Ears, Nose, Throat Exam: moist mucous membranes Neck Exam: normal inspection Respiratory: normal breath sounds Cardiovascular: regular rate/rhythm Gastrointestinal: soft, No tenderness Extremity Exam: pelvis stable, other (custom clothier equal) Mental Status: alert, 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 Exam: PERRL, facial droop, No normal speech Coordination/Gait: abnormal gait Skin Exam: normal color, warm, dry - Course Nursing assessment & vital signs reviewed: Yes EKG Interpreted by Me: Other (nsr 98, no stemi) - CT Exams Head CT Interpretation: Discussed w/radiologist, No/Intracranial Hemorrhag Ordered Tests: Active Orders 24 hr Category Date Time Status Accucheck STAT Care 10/24/17 11:46 Active Bat Lathe Operator STAT Care 10/24/17 11:46 Active EKG-ER Only STAT Care 10/24/17 11:46 Active IV Insertion STAT Care 10/24/17 11:46 Active NPO (ED) STAT Care 10/24/17 11:46 Active Pulse Oximetry (ED) STAT Care 10/24/17 11:46 Active HEAD WITHOUT CONTRAST [CT] Stat Exams 10/24/17 11:46 Ordered CBC W DIFF Stat Lab 10/24/17 11:50 Completed CMP Stat Lab 10/24/17 11:50 Completed PROTIME WITH INR Stat Lab 10/24/17 11:50 Completed Medication Summary Discontinued Medications Generic Name Dose Route Start Last Admin Trade Name Freq PRN Reason Stop Dose Admin Aspirin 600 mg 10/24/17 13:19 Aspirin 600 Mg PA 10/24/17 13:20 STAT ONE Lab/Rad Data: Laboratory Result Diagrams 10/24/17 11:50 10/24/17 11:50 Laboratory Results 10/24/17 10/24/17 10/24/17 Range/Units 11:50 11:50 11:50 WBC 10.9 H (4.0-10.5) K/mm3 RBC 4.46 (4.1-5.4) M/mm3 Hgb 14.5 (12.0-16.0) gm/dl Hct 45.2 (35-47) % MCV 101.3 H (78-100) fl MCH 32.5 H (26-32) pg MCHC 32.1 (32-36) g/dl RDW 13.7 (11.5-14.0) % Plt Count 314 (150-450) K/mm3 MPV 10.7 H (6-9.5) fl Gran % 63.9 (36.0-66.0) % Eos # (Auto) 0.10 (0-0.5) Absolute Lymphs (auto) 2.78 (1.0-4.6) Absolute Monos (auto) 1.03 (0.0-1.3) Lymphocytes % 25.5 (24.0-44.0) % Monocytes % 9.4 (0.0-12.0) % Eosinophils % 0.9 (0.00-5.0) % Basophils % 0.3 (0.0-0.4) % Absolute Granulocytes 6.98 H (1.4-6.9) Basophils # 0.03 (0-0.4) PT 11.4 (9.95-12.35) SECONDS INR 0.98 (0.8-3.0) Sodium 143 (137-145) mmol/L Potassium 3.8 (3.5-5.1) mmol/L Chloride 93 L (98-107) mmol/L Carbon Dioxide 35 H (22-30) mmol/L Anion Gap 18.6 H (5-15) MEQ/L BUN 9 (7-17) mg/dL Creatinine 1.11 H (0.52-1.04) mg/dL Estimated GFR 53.5 ML/MIN Glucose 105 (74-106) mg/dL Calcium 10.0 (8.4-10.2) mg/dL Total Bilirubin 0.80 (0.2-1.3) mg/dL AST 19 (14-36) U/L ALT 31 (0-35) U/L Alkaline Phosphatase 119 (38-126) U/L Serum Total Protein 9.7 H (6.3-8.2) g/dL Albumin 5.1 H (3.5-5.0) g/dL - Progress Progress: improved Counseled pt/family regarding: lab results, diagnosis, need for follow-up, rad results - Departure Time of Disposition: 13:29 Departure Disposition: Transfer Clinical Impression: TIA (transient ischemic attack) Qualifiers: Transient cerebral ischemia type: unspecified Qualified Code(s): G45.9 - Transient cerebral ischemic attack, unspecified Condition: Stable Critical Care Time: No Referrals: ALL PARK [Primary Care Provider] - Additional Instructions: transfer accepted to [facility] by Franky Chu
[2017-10-24 11:59] LABS: BASOPHIL % 0.3 % (0.0-0.4); Basophil (Absolute #) 0.03 (0-0.4); Eosinophil % 0.9 % (0.00-5.0); Granulocyte Absolute (ANC) 6.98 (1.4-6.9); Granulocytes % 63.9 % (36.0-66.0); Hematocrit 45.2 % (35-47); Hemoglobin 14.5 gm/dl (12.0-16.0); Lymphocyte (Absolute #) 2.78 (1.0-4.6); Lymphocytes % 25.5 % (24.0-44.0); Mean Cell Volume 101.3 fl (78-100); Mean Corpuscular Hemoglobin 32.5 pg (26-32); Mean Corpuscular Hgb Concent. 32.1 g/dl (32-36); Mean Platelet Volume 10.7 fl (6-9.5); Monocyte (Absolute #) 1.03 (0.0-1.3); Monocytes % 9.4 % (0.0-12.0); Platelet Count 314 K/mm3 (150-450); Red Blood Count 4.46 M/mm3 (4.1-5.4); Red Cell Distribution Width 13.7 % (11.5-14.0); White Blood Count 10.9 K/mm3 (4.0-10.5)
[2017-10-24 12:09] VITALS: O2SAT 98
[2017-10-24 12:15] LABS: INR 0.98 (0.8-3.0)
[2017-10-24 12:20] LABS: ALBUMIN 5.1 g/dL (3.5-5.0); ANION GAP 18.6 MEQ/L (5-15); BILIRUBIN,TOTAL 0.8 mg/dL (0.2-1.3); Creatinine 1 1.11 mg/dL (0.52-1.04); Potassium 3.8 mmol/L (3.5-5.1); Total Protein 9.7 g/dL (6.3-8.2)
[2017-10-24] MEDS ORDERED: ASPIRIN 600 MG PR ONE (13:19)
[2017-10-24] MEDS ORDERED: ASPIRIN 600 MG ONE (13:29)
[2017-10-24 13:44] VITALS: BP 106/66; PULSE 88
--- NOTE | 2017-10-24 16:10 | XRAY ---
Indication: CVA. Multiple contiguous axial images obtained through the head without contrast. Comparison: October 31, 2015. Images through the base of the brain slightly degraded by motion artifact. Stable remote right basal ganglia lacunar infarct. Again no acute intracranial hemorrhage, abnormal extra-axial fluid collection, or mass effect. Fourth ventricle is midline without hydrocephalus. Lang-white matter differentiation preserved. Bony calvarium intact. Visualized paranasal sinuses and mastoid air cells are clear. Impression: Mild motion artifact. Stable remote right basal ganglial lacunar infarct. No new/acute intracranial abnormalities. Comment: Preliminary interpretation was made by [facility]. No critical discrepancy. CTDI 65.42
== END 2017-10-24 14:33 | disposition short-term general hospital (02) ==
LOC: ED 11:37
DX: G45.9 Transient cerebral ischemic attack, unspecified (principal); W19.XXXA Unspecified fall, initial encounter; Z79.01 Long term (current) use of anticoagulants; Z79.82 Long term (current) use of aspirin; Z79.899 Other long term (current) drug therapy; Z86.73 Personal history of transient ischemic attack (TIA), and cerebral infarction without residual deficits; Z95.1 Presence of aortocoronary bypass graft
CPT/HCPCS: 36000; 36415; 70450; 80053; 82962; 85025; 85610; 93005; 93041; 99285; A9270-GY

== ENCOUNTER 2018-06-30 14:02 | Inpatient (IN) | payer MEDICARE ==
--- NOTE | 2018-06-30 14:48 | ERPHSYRPT ---
- History of Present Illness Time Seen by Provider: 06/30/18 14:42 Source: patient, family Exam Limitations: no limitations Patient Subjective Stated Complaint: bent over to get a castle from the cabinet and passed out, SOB on movement Triage Nursing Assessment: Pt c/o of shortness of breath, was bending over to get a castle from the cabinet and passed out and landed on her right side, right sided arm/shoulder pain, left foot pain, lungs clear, bowel sounds heard in all 4 quadrants, non productive cough, hx of strokes, hx of AAA Physician History: The patient is a 58-year-old female with her family with multiple complaints. Prior to arrival she was in the kitchen and passed out. She hurt her left foot during the incident. She also has a skin tear on her right gilmore. She doesn't know when her last tetanus vaccination was given. She denies chest pain. 2 weeks ago she started to become short of breath. It has worsened. She has a cough. She did receive an influenza vaccination this year. She saw someone in [facility] 2 days ago and was given a steroid shot and an antibiotic she is still coughing. She denies fever or chills. At that visit to [facility] she also complained of right foot pain and was scheduled to get a right foot x-ray. She never got the right foot x-ray. After passing out today in the kitchen, she went to [facility] to have them look at her cut on her right gilmore. They brought her over to the ER for shortness of breath. Her past medical history is significant for CAD, cardiac stent placement, AAA repair, stroke, TIAs, congestive heart failure, DM, ocular shingles on the left side, pancreatitis, renal insufficiency, anxiety, and bronchitis. Timing/Duration: week(s) (2), gradual onset, worse Severity: moderate Modifying Factors: Improves With: medication Associated Symptoms: shortness of breath, cough, syncope Allergies/Adverse Reactions: Iodinated Contrast- Oral and IV Dye [Iodinated Contrast Media - IV Dye] Allergy (Severe, Verified 06/30/18 14:25) Shortness of Breath anaphylaxis Penicillins Allergy (Unknown, Verified 06/30/18 14:25) Rash hydrocodone bitartrate [From Vicodin] Adverse Reaction (Mild, Verified 06/30/18 14:25) Vomiting prednisone Adverse Reaction (Unknown, Verified 06/30/18 14:25) Swelling on prednisone now but makes sick and irritable Home Medications: Alprazolam 1 mg [Xanax 1 mg] 1 mg PO TID 01/05/17 [History] Aspirin 81 gm Chew [Baby Aspirin 81 mg Chew] 81 mg PO DAILY 01/05/17 [ History] Atorvastatin Calcium [Lipitor] 40 mg PO HS 01/05/17 [History] Clopidogrel Bisulfate 75 mg [PLAVIX 75 MG Tablet] 75 mg PO DAILY 01/05/17 [History] Gabapentin 300 mg PO BID 01/05/17 [History] Metoprolol Succinate [Toprol Xl] 25 mg PO DAILY 01/05/17 [History] [place]-3/Dha/Epa/Fish Oil [Fish Oil 1,000 mg Softgel] 3,000 mg PO DAILY 01/05/17 [History] Spironolactone 25 mg [Aldactone 25 MG] 25 mg PO BID 01/05/17 [History] Torsemide [Demadex] 20 mg PO HS 01/05/17 [History] Torsemide [Demadex] 30 mg PO DAILY 01/05/17 [History] Duloxetine HCl 30 mg [Cymbalta 30 MG Capsule] 60 mg PO DAILY 06/30/18 [ History] Metformin HCl Xr 500 mg [Glucophage XR 500 MG] 500 mg PO BID 06/30/18 [ History] PANTOPRAZOLE 40 mg Tablet [Protonix 40MG Tablet] 40 mg PO DAILY 06/30/18 [ History] Hx Tetanus, Diphtheria Vaccination/Date Given: Yes Hx Influenza Vaccination/Date Given: No Hx Pneumococcal Vaccination/Date Given: No - Review of Systems Constitutional: No Fever, No Chills Eyes: No Symptoms Ears, Nose, & Throat: No Symptoms Respiratory: Cough, Dyspnea on Exertion (HENDERSON), No Wheezing Cardiac: No Chest Pain, No Edema, No Syncope Abdominal/Gastrointestinal: No Abdominal Pain, No Nausea, No Vomiting, No Diarrhea Genitourinary Symptoms: No Dysuria Musculoskeletal: Fall, Injury, No Back Pain, No Neck Pain Skin: No Rash Neurological: No Dizziness, No Focal Weakness, No Sensory Changes Psychological: No Symptoms Endocrine: No Symptoms Hematologic/Lymphatic: No Symptoms Immunological/Allergic: No Symptoms All Other Systems: Reviewed and Negative - Past Medical History Pertinent Past Medical History: Yes Neurological History: Seizures, Stroke ENT History: Other Cardiac History: Congestive Heart Failure, High Cholesterol, Hypertension, Other Respiratory History: Asthma, CHF, COPD Endocrine Medical History: No Pertinent History Musculoskeletal History: Degenerative Disk Disease GI Medical History: GERD History: Other Psycho-Social History: Anxiety, Depression Female Reproductive Disorders: No Pertinent History Other Medical History: Open heart surgery 2010, stent, ulcers in the L eye - Past Surgical History Past Surgical History: Yes Neuro Surgical History: No Pertinent History Cardiac: CABG, Cardiac Catheterization, Cardiac Stent, Valve Replacement, Other Respiratory: No Pertinent History Gastrointestinal: Appendectomy, Bowel Surgery, Cholecystectomy, Exploratory Laparoscopy Genitourinary: No Pertinent History Musculoskeletal: Other Female Surgical History: Section, Hysterectomy Other Surgical History: BOWEL RESECTIONx3 for adhesions. ppins and plate placed in foot and then removed. TRIPLE AAA REPAIR WITH CABG. Valve Repair 2009 - Social History Smoking Status: Never smoker How long have you smoked: 0 Exposure to second hand smoke: No Drug Use: none Patient Lives Alone: No - Female History Hx Now: No - Nursing Vital Signs Nursing Vital Signs: Initial Vital Signs Pulse Rate 88 06/30/18 14:12 Blood Pressure 105/64 06/30/18 14:12 O2 Sat by Pulse Oximetry 95 06/30/18 14:12 Pain Scale Pain Intensity 4 - Physical Exam General Appearance: no apparent distress, alert Eye Exam: PERRL/EOMI, eyes nml inspection, post op pupil defect (R) Ears, Nose, Throat Exam: normal ENT inspection, TMs normal, pharynx normal, moist mucous membranes Neck Exam: normal inspection, non-tender, supple, full range of motion Respiratory Exam: normal breath sounds, lungs clear, No respiratory distress, No crackles/rales, No rhonchi, No wheezing Cardiovascular Exam: regular rate/rhythm, normal heart sounds, normal peripheral pulses Gastrointestinal/Abdomen Exam: soft, normal bowel sounds, No tenderness, No mass Pelvic Exam: not done Rectal Exam: not done Back Exam: normal inspection, normal range of motion, No CVA tenderness, No vertebral tenderness Extremity Exam: other (Examination of the right foot reveals bruising over the mid and forefoot. There is mild tenderness laterally. Examination of the left foot reveals no bruising the tenderness over the lateral forefoot.) Neurologic Exam: alert, oriented x 3, cooperative, normal mood/affect, nml cerebellar function, nml station & gait, sensation nml, No motor deficits Skin Exam: laceration (There is a small 1 cm skin tear to the mid right anterior lower leg.) Lymphatic Exam: No adenopathy SpO2 Interpretation: normal SpO2: 95 Oxygen Delivery: Room Air - Course EKG Interpreted by Me: RATE, Sinus Rhythm, NORMAL AXIS, NORMAL INTERVALS, NORMAL QRS, NORMAL ST-T, Other (no change comp to EKG from 10/24/17.) - Radiology Exams Right Foot X-ray Interpretation: Interpreted by me, Negative, No Fracture, Other (old healed fracture of right 5th metatarsal) Left Other X-ray Interpretation: Interpreted by me, Non-displaced Fracture (nondisplaced comminuted distal midshaft fracture of left 5th metatarsal.) Chest X-ray Interpretation: Interpreted by me, Infiltrates Ordered Tests: Active Orders 24 hr Category Date Time Status Deposition Reporter STAT Care 06/30/18 14:56 Active Cold Application STAT Care 06/30/18 14:53 Active EKG-ER Only STAT Care 06/30/18 14:54 Active IV Insertion STAT Care 06/30/18 14:54 Active Orthostatic Vital Signs STAT Care 06/30/18 14:54 Active Pulse Oximetry (ED) STAT Care 06/30/18 14:54 Active Wound Care STAT Care 06/30/18 14:53 Active CHEST 1 VIEW (PORTABLE) Stat Exams 06/30/18 17:34 Taken FOOT (MINIMUM 3 VIEWS) Stat Exams 06/30/18 14:53 Completed FOOT (MINIMUM 3 VIEWS) Stat Exams 06/30/18 15:27 Completed CBC W DIFF Stat Lab 06/30/18 14:30 Completed CMP Stat Lab 06/30/18 14:30 Completed ETHYL ALCOHOL Stat Lab 06/30/18 14:30 Completed Lactic Acid Stat Lab 06/30/18 15:09 Completed Lactic Acid Stat Lab 06/30/18 18:00 Results TROPONIN Q3H Lab 06/30/18 14:30 Completed TROPONIN Q3H Lab 06/30/18 18:05 Received TROPONIN Q3H Lab 06/30/18 21:00 Ordered TROPONIN Q3H Lab 07/01/18 00:00 Ordered TROPONIN Q3H Lab 07/01/18 03:00 Ordered UA W/RFX UR CULTURE Stat Lab 06/30/18 17:00 Completed Urine Triage Profile Stat Lab 06/30/18 17:00 Completed Medication Summary Discontinued Medications Generic Name Dose Route Start Last Admin Trade Name Michelle PRN Reason Stop Dose Admin Diphtheria/Tetanus/Acell Pertussis 0.5 ml 06/30/18 14:53 06/30/18 15:17 Adacel Vial IM 06/30/18 14:54 0.5 ml .ONCE ONE Administration Diphtheria/Tetanus/Acell Pertussis Confirm 06/30/18 15:16 Adacel Vial Administered 06/30/18 15:17 Dose 0.5 ml IM .[employer] Culture Communication ONE Lab/Rad Data: Laboratory Result Diagrams 06/30/18 14:30 06/30/18 14:30 Laboratory Results 06/30/18 06/30/18 06/30/18 Range/Units 18:00 17:00 17:00 WBC (4.0-10.5) K/mm3 RBC (4.1-5.4) M/mm3 Hgb (12.0-16.0) gm/dl Hct (35-47) % MCV (78-100) fl MCH (26-32) pg MCHC (32-36) g/dl RDW (11.5-14.0) % Plt Count (150-450) K/mm3 MPV (6-9.5) fl Gran % (36.0-66.0) % Eos # (Auto) (0-0.5) Absolute Lymphs (auto) (1.0-4.6) Absolute Monos (auto) (0.0-1.3) Lymphocytes % (24.0-44.0) % Monocytes % (0.0-12.0) % Eosinophils % (0.00-5.0) % Basophils % (0.0-0.4) % Absolute Granulocytes (1.4-6.9) Basophils # (0-0.4) Sodium (137-145) mmol/L Potassium (3.5-5.1) mmol/L Chloride (98-107) mmol/L Carbon Dioxide (22-30) mmol/L Anion Gap (5-15) MEQ/L BUN (7-17) mg/dL Creatinine (0.52-1.04) mg/dL Estimated GFR ML/MIN Glucose (74-106) mg/dL Lactic Acid 3.5 H (0.4-2.0) Calcium (8.4-10.2) mg/dL Total Bilirubin (0.2-1.3) mg/dL AST (14-36) U/L ALT (0-35) U/L Alkaline Phosphatase (38-126) U/L Troponin I (0.000-0.034) ng/mL Serum Total Protein (6.3-8.2) g/dL Albumin (3.5-5.0) g/dL Urine Color YELLOW (YELLOW) Urine Appearance CLEAR (CLEAR) Urine pH 7.0 (5-6) Ur Specific [place] 1.015 (1.005-1.025) Urine Protein NEGATIVE (Negative) Urine Ketones NEGATIVE (NEGATIVE) Urine Blood NEGATIVE (0-5) Arnel/ul Urine Nitrite NEGATIVE (NEGATIVE) Urine Bilirubin NEGATIVE (NEGATIVE) Urine Urobilinogen NEGATIVE (0-1) mg/dL Ur Leukocyte Esterase NEGATIVE (NEGATIVE) Urine WBC (Auto) 0-2 (0-5) /HPF Urine RBC (Auto) NONE (0-2) /HPF U Epithel Cells (Auto) NONE (FEW) /HPF Urine Bacteria (Auto) NONE (NEGATIVE) /HPF Urine Culture Reflexed NO (NO) Urine Glucose NEGATIVE (NEGATIVE) mg/dL Urine Opiates Level NEGATIVE (NEGATIVE) Ur Methadone NEGATIVE (NEGATIVE) Urine Barbiturates NEGATIVE (NEGATIVE) Ur Phencyclidine (PCP) NEGATIVE (NEGATIVE) Urine Amphetamine NEGATIVE (NEGATIVE) U Benzodiazepine Level POSITIVE (NEGATIVE) Urine Cocaine NEGATIVE (NEGATIVE) Urine Marijuana (THC) NEGATIVE (NEGATIVE) Ethyl Alcohol (0-10) mg/dL 06/30/18 06/30/18 06/30/18 Range/Units 15:09 14:30 14:30 WBC (4.0-10.5) K/mm3 RBC (4.1-5.4) M/mm3 Hgb (12.0-16.0) gm/dl Hct (35-47) % MCV (78-100) fl MCH (26-32) pg MCHC (32-36) g/dl RDW (11.5-14.0) % Plt Count (150-450) K/mm3 MPV (6-9.5) fl Gran % (36.0-66.0) % Eos # (Auto) (0-0.5) Absolute Lymphs (auto) (1.0-4.6) Absolute Monos (auto) (0.0-1.3) Lymphocytes % (24.0-44.0) % Monocytes % (0.0-12.0) % Eosinophils % (0.00-5.0) % Basophils % (0.0-0.4) % Absolute Granulocytes (1.4-6.9) Basophils # (0-0.4) Sodium 138 (137-145) mmol/L Potassium 4.4 (3.5-5.1) mmol/L Chloride 97 L (98-107) mmol/L Carbon Dioxide 25 (22-30) mmol/L Anion Gap 20.2 H (5-15) MEQ/L BUN 28 H (7-17) mg/dL Creatinine 1.08 H (0.52-1.04) mg/dL Estimated GFR 55.0 ML/MIN Glucose 166 H (74-106) mg/dL Lactic Acid 4.5 H (0.4-2.0) Calcium 9.8 (8.4-10.2) mg/dL Total Bilirubin 0.60 (0.2-1.3) mg/dL AST 29 (14-36) U/L ALT 38 H (0-35) U/L Alkaline Phosphatase 69 (38-126) U/L Troponin I < 0.012 (0.000-0.034) ng/mL Serum Total Protein 7.9 (6.3-8.2) g/dL Albumin 4.9 (3.5-5.0) g/dL Urine Color (YELLOW) Urine Appearance (CLEAR) Urine pH (5-6) Ur Specific [place] (1.005-1.025) Urine Protein (Negative) Urine Ketones (NEGATIVE) Urine Blood (0-5) Arnel/ul Urine Nitrite (NEGATIVE) Urine Bilirubin (NEGATIVE) Urine Urobilinogen (0-1) mg/dL Ur Leukocyte Esterase (NEGATIVE) Urine WBC (Auto) (0-5) /HPF Urine RBC (Auto) (0-2) /HPF U Epithel Cells (Auto) (FEW) /HPF Urine Bacteria (Auto) (NEGATIVE) /HPF Urine Culture Reflexed (NO) Urine Glucose (NEGATIVE) mg/dL Urine Opiates Level (NEGATIVE) Ur Methadone (NEGATIVE) Urine Barbiturates (NEGATIVE) Ur Phencyclidine (PCP) (NEGATIVE) Urine Amphetamine (NEGATIVE) U Benzodiazepine Level (NEGATIVE) Urine Cocaine (NEGATIVE) Urine Marijuana (THC) (NEGATIVE) Ethyl Alcohol < 10 (0-10) mg/dL 06/30/18 Range/Units 14:30 WBC 15.3 H (4.0-10.5) K/mm3 RBC 3.22 L (4.1-5.4) M/mm3 Hgb 10.3 L (12.0-16.0) gm/dl Hct 33.5 L (35-47) % MCV 104.0 H (78-100) fl MCH 31.9 (26-32) pg MCHC 30.7 L (32-36) g/dl RDW 14.0 (11.5-14.0) % Plt Count 241 (150-450) K/mm3 MPV 11.2 H (6-9.5) fl Gran % 88.4 H (36.0-66.0) % Eos # (Auto) 0.01 (0-0.5) Absolute Lymphs (auto) 1.31 (1.0-4.6) Absolute Monos (auto) 0.41 (0.0-1.3) Lymphocytes % 8.6 L (24.0-44.0) % Monocytes % 2.7 (0.0-12.0) % Eosinophils % 0.1 (0.00-5.0) % Basophils % 0.2 (0.0-0.4) % Absolute Granulocytes 13.50 H (1.4-6.9) Basophils # 0.03 (0-0.4) Sodium (137-145) mmol/L Potassium (3.5-5.1) mmol/L Chloride (98-107) mmol/L Carbon Dioxide (22-30) mmol/L Anion Gap (5-15) MEQ/L BUN (7-17) mg/dL Creatinine (0.52-1.04) mg/dL Estimated GFR ML/MIN Glucose (74-106) mg/dL Lactic Acid (0.4-2.0) Calcium (8.4-10.2) mg/dL Total Bilirubin (0.2-1.3) mg/dL AST (14-36) U/L ALT (0-35) U/L Alkaline Phosphatase (38-126) U/L Troponin I (0.000-0.034) ng/mL Serum Total Protein (6.3-8.2) g/dL Albumin (3.5-5.0) g/dL Urine Color (YELLOW) Urine Appearance (CLEAR) Urine pH (5-6) Ur Specific [place] (1.005-1.025) Urine Protein (Negative) Urine Ketones (NEGATIVE) Urine Blood (0-5) Arnel/ul Urine Nitrite (NEGATIVE) Urine Bilirubin (NEGATIVE) Urine Urobilinogen (0-1) mg/dL Ur Leukocyte Esterase (NEGATIVE) Urine WBC (Auto) (0-5) /HPF Urine RBC (Auto) (0-2) /HPF U Epithel Cells (Auto) (FEW) /HPF Urine Bacteria (Auto) (NEGATIVE) /HPF Urine Culture Reflexed (NO) Urine Glucose (NEGATIVE) mg/dL Urine Opiates Level (NEGATIVE) Ur Methadone (NEGATIVE) Urine Barbiturates (NEGATIVE) Ur Phencyclidine (PCP) (NEGATIVE) Urine Amphetamine (NEGATIVE) U Benzodiazepine Level (NEGATIVE) Urine Cocaine (NEGATIVE) Urine Marijuana (THC) (NEGATIVE) Ethyl Alcohol (0-10) mg/dL - Progress Progress: improved Progress Note: 06/30/18 14:[address] Pt declines. Discussed with : Ness Will see patient in: hospital (full admit) Counseled pt/family regarding: lab results, diagnosis, rad results - Departure Time of Disposition: 18:53 Departure Disposition: In-patient Admission (per Dr Arzola) Clinical Impression: Infiltrate noted on imaging study, Foot fracture, left, Skin tear, Syncope Condition: Stable Critical Care Time: No Referrals: CARON SANTAMARIA [Primary Care Provider] -
[2018-06-30] MEDS ORDERED: Adacel Vial IM ONE ×2 (14:53→15:16)
[2018-06-30 15:13] LABS: Lactic Acid 4.5 (0.4-2.0)
[2018-06-30 15:28] LABS: ALBUMIN 4.9 g/dL (3.5-5.0); ALKALINE PHOSPHATASE 69 U/L (38-126); ANION GAP 20.2 MEQ/L (5-15); BLOOD UREA NITROGEN 28 mg/dL (7-17); CHLORIDE 97 mmol/L (98-107); Calcium 9.8 mg/dL (8.4-10.2); Carbon Dioxide 25 mmol/L (22-30); Creatinine 1 1.08 mg/dL (0.52-1.04); Glucose 166 mg/dL (74-106); Potassium 4.4 mmol/L (3.5-5.1); SGOT/AST 29 U/L (14-36); SGPT/ALT 38 U/L (0-35); SODIUM 138 mmol/L (137-145); Total Protein 7.9 g/dL (6.3-8.2)
[2018-06-30 15:35] LABS: BASOPHIL % 0.2 % (0.0-0.4); Basophil (Absolute #) 0.03 (0-0.4); Eosinophil % 0.1 % (0.00-5.0); Eosinophil (Absolute #) 0.01 (0-0.5); Granulocytes % 88.4 % (36.0-66.0); Hematocrit 33.5 % (35-47); Hemoglobin 10.3 gm/dl (12.0-16.0); Lymphocyte (Absolute #) 1.31 (1.0-4.6); Lymphocytes % 8.6 % (24.0-44.0); Mean Corpuscular Hgb Concent. 30.7 g/dl (32-36); Mean Platelet Volume 11.2 fl (6-9.5); Monocyte (Absolute #) 0.41 (0.0-1.3); Monocytes % 2.7 % (0.0-12.0); Platelet Count 241 K/mm3 (150-450); Red Blood Count 3.22 M/mm3 (4.1-5.4); White Blood Count 15.3 K/mm3 (4.0-10.5)
[2018-06-30 15:36] LABS: Mean Corpuscular Hemoglobin 31.9 pg (26-32)
[2018-06-30 15:46] LABS: ETHYL ALCOHOL < 10 mg/dL (0-10)
--- NOTE | 2018-06-30 16:01 | XRAY ---
Indication: Lateral foot pain. Burning sensation. Diabetes. Comparison: None 3 nonweightbearing views of the left foot demonstrates incomplete oblique acute fracture involving the distal shaft of the 5th metatarsal. Tiny cuboid accessory ossicle and medial lower leg surgical clips. Remaining foot unremarkable.
--- NOTE | 2018-06-30 16:01 | XRAY ---
Indication: Pain following fall. Comparison: None 3 nonweightbearing views of the right foot demonstrates old 5th metatarsal shaft fracture and a cuboid accessory ossicle. No other bony, articular, or soft tissue abnormalities.
[2018-06-30 17:24] LABS: Appearance CLEAR (CLEAR); Bilirubin NEGATIVE (NEGATIVE); Blood NEGATIVE Ery/ul (0-5); Glucose NEGATIVE (NEGATIVE); Ketones NEGATIVE (NEGATIVE); Leukocyte Esterase NEGATIVE (NEGATIVE); Nitrite NEGATIVE (NEGATIVE); Protein,Urine Dip NEGATIVE (Negative); Specific Gravity 1.015 (1.005-1.025); Urobilinogen NEGATIVE mg/dL (0-1); WBC 0-2 /HPF (0-5)
[2018-06-30 17:44] LABS: Amphetamine,Urine NEGATIVE (NEGATIVE); Barbiturate,Urine NEGATIVE (NEGATIVE); Benzodiazepine,Urine POSITIVE (NEGATIVE); Cocaine,Urine NEGATIVE (NEGATIVE); Methadone,Urine NEGATIVE (NEGATIVE); Opiate,Urine NEGATIVE (NEGATIVE); PCP,Urine NEGATIVE (NEGATIVE); THC,Urine NEGATIVE (NEGATIVE)
[2018-06-30 18:10] LABS: Lactic Acid 3.5 (0.4-2.0)
[2018-06-30] MEDS ORDERED: ROCEPHIN 1 Gm-D5w 50 ml Bag** 1 G/50 ML IVPB IV STA (18:55)
[2018-06-30] MEDS ORDERED: ROCEPHIN 1 Gm-D5w 50 ml Bag** 1 G/50 ML IVPB IV ONE (18:57)
[2018-06-30] MEDS: Sodium Chloride 0.9% 1000 ML 1,000 ML IV SCH (20:23)
[2018-06-30] MEDS: solu-MEDROL 125 MG IV SCH (20:23)
[2018-06-30] MEDS: NEURONTIN 300 MG PO SCH (22:04)
[2018-06-30] MEDS: DEMADEX 20 MG PO SCH (22:04)
[2018-06-30] MEDS: ZOCOR 20MG PO SCH (22:05)
[2018-06-30] MEDS: Pepcid 20 MG PO SCH (22:05)
[2018-06-30] MEDS: MORPHINE SULFATE 2 MG INJ IV PRN (22:05)
[2018-06-30] MEDS ORDERED: PROVENTIL 2.5 MG/3 ML NEB IH ONE (22:59)
[2018-06-30] MEDS: PROVENTIL 2.5 MG/3 ML NEB IH SCH (23:07)
[2018-06-30] MEDS: XANAX 1 MG PO PRN (23:09)
[2018-07-01] MEDS: TYLENOL 325 MG PO PRN ×3 (02:00→20:07)
[2018-07-01] MEDS: solu-MEDROL 125 MG IV SCH ×4 (02:01→20:07)
[2018-07-01] MEDS: PROVENTIL 2.5 MG/3 ML NEB IH SCH ×6 (03:19→23:21)
[2018-07-01 03:47] LABS: Lactic Acid 4.3 (0.4-2.0)
[2018-07-01 04:13] LABS: ANION GAP 19.6 MEQ/L (5-15); BLOOD UREA NITROGEN 27 mg/dL (7-17); CHLORIDE 98 mmol/L (98-107); Calcium 9.3 mg/dL (8.4-10.2); Carbon Dioxide 25 mmol/L (22-30); Creatinine 1 0.98 mg/dL (0.52-1.04); Glucose 179 mg/dL (74-106); SODIUM 138 mmol/L (137-145)
[2018-07-01 04:29] LABS: Hematocrit 33.1 % (35-47); Hemoglobin 10.3 gm/dl (12.0-16.0); Mean Cell Volume 103.8 fl (78-100); Mean Corpuscular Hemoglobin 32.2 pg (26-32); Mean Corpuscular Hgb Concent. 31.1 g/dl (32-36); Mean Platelet Volume 11.5 fl (6-9.5); Platelet Count 233 K/mm3 (150-450); Red Blood Count 3.19 M/mm3 (4.1-5.4); White Blood Count 12.8 K/mm3 (4.0-10.5)
[2018-07-01 05:00] LABS: BAND 1 % (0.0-2.0); Lymphocytes 9 % (24-44); Monocyte 3 % (0.0-12.0); Neutrophils 87 % (36.0-66.0); Platelet Estimate NORMAL (NORMAL); Total Cells Counted 100
[2018-07-01 05:01] LABS: ANISOCYTOSIS 1+; Poikilocytosis 1+
[2018-07-01] MEDS: Sodium Chloride 0.9% 1000 ML 1,000 ML IV SCH ×2 (06:19→18:28)
--- NOTE | 2018-07-01 08:02 | HP ---
CHIEF COMPLAINT: Syncopal episode and recent upper respiratory tract infection. HISTORY OF PRESENT ILLNESS: The patient is a 58 year-old white female apparently had been getting a can out of her cabinet and just passed out and fell over. In the fall she fractured her metatarsal of the left foot, had an abrasion over her left gil[place] and a bruise on her left forearm. The patient has had recent upper respiratory tract infection for which she had been seen in the [facility] and given a steroid shot and started on antibiotics orally but the patient just does not see any improvement in the illness over the past week or more. HOME MEDICATIONS: Alprazolam 1 mg t.i.d., aspirin 81 mg a day, atorvastatin 40 mg a day, Plavix 75 mg daily, gabapentin 300 mg b.i.d., metoprolol XL 25 mg a day, fish oil, Spironolactone 25 mg b.i.d., Torsemide 20 mg at night and 30 mg in the morning, duloxetine 60 mg a day, Metformin 500 mg b.i.d., pantoprazole 40 mg daily. ALLERGIES: PENICILLIN. IV DYE. HYDROCODONE. PREDNISONE. PAST MEDICAL HISTORY: Includes anxiety, depression, heart failure, diabetes mellitus type 2, gastroesophageal reflux disease, chronic obstructive pulmonary disease. PAST SURGICAL HISTORY: Includes appendectomy, cholecystectomy, bowel resection x3 for adhesions, abdominal aortic aneurysm repair and coronary artery bypass grafting with valve repair in 2009. PHYSICAL EXAMINATION: The patient's vital signs on admission showed a pulse of 88, respiratory rate 16, blood pressure 105/64. O2 saturation 95%. HEENT: Normocephalic, atraumatic. Pupils equal round reactive to light. Extraocular movements intact. The patient is currently wearing oxygen per nasal cannula. NECK: Supple without lymphadenopathy, thyromegaly or JVD. CHEST: Essentially clear to auscultation presently. HEART: Regular rate and rhythm without murmurs, rubs or gallops heard. ABDOMEN: Soft. No palpable masses were felt. EXTREMITIES: Without cyanosis, clubbing or edema. There is an abrasion over the right gil[place]. Foot fracture on the left. NEUROLOGIC: The patient is alert and oriented x3 with no focal deficits noted. LAB DATA AND TESTS: Chest x-ray according to the reading by the emergency room physician reported infiltrates. Her lactic acid was elevated at 3.5. Troponin was less than 0.012. UA was normal with specific gravity 1.05. Urine drug screen was positive for benzodiazepines. Her metabolic panel showed a nonfasting glucose of 166, BUN 28, creatinine 1.08. Electrolytes were essentially normal. Liver enzymes were essentially normal. Slight elevation of ALT of 38. ETOH was less than 10. White blood cell count was 15,300 with what appears to be a left shift 88.4% granulocytes, hemoglobin 10.3, PLT count 241,000. ASSESSMENT: The patient has been admitted to the hospital for IV antibiotics and monitoring. We will check a D-dimer to be sure the patient does not have possibility of pulmonary embolism. She otherwise will be continued on her usual home medications. The foot was placed in a hard soled shoe for the metatarsal fracture presently. Cultures have been obtained and the patient has received Rocephin in the emergency room. We will add Zithromax at this point as well.
[2018-07-01 08:18] LABS: INFLUENZA A NEGATIVE (NEGATIVE); INFLUENZA B NEGATIVE (NEGATIVE); RESPIRATORY SYNCTIAL VIRUS NEGATIVE (Negative)
--- NOTE | 2018-07-01 08:47 | XRAY ---
Indication: Cough. Comparison: October 06, 2017. Portable chest demonstrates clearing of the previous diffuse right lung infiltrates. There is now mild bibasilar infiltrates versus atelectasis. Remaining heart and lungs unremarkable. Bony thorax intact again with sternotomy wires. Impression: Mild bibasilar infiltrates versus atelectasis. Correlate clinically.
--- NOTE | 2018-07-01 08:47 | XRAY ---
Indication: Syncope. Infiltrates. Comparison: One day earlier. PA/lateral chest is better inflated and clear. Heart and mediastinal structures within normal limits. No new/acute findings. Impression: Nonacute chest.
[2018-07-01] MEDS: DEMADEX 20 MG PO SCH ×2 (09:01→21:35)
[2018-07-01] MEDS: Protonix 40MG Tablet PO SCH (09:02)
[2018-07-01] MEDS: Toprol-Xl 25MG Tablets PO SCH (09:02)
[2018-07-01] MEDS: Aldactone 25 MG PO SCH ×2 (09:02→17:37)
[2018-07-01] MEDS: ECOTRIN 81 MG PO SCH (09:02)
[2018-07-01] MEDS: NEURONTIN 300 MG PO SCH ×2 (09:02→21:36)
[2018-07-01] MEDS: Cymbalta 30 MG Capsule PO SCH (09:02)
[2018-07-01] MEDS: PLAVIX 75 MG Tablet PO SCH (09:02)
[2018-07-01] MEDS: Glucophage XR 500 MG PO SCH ×2 (09:02→21:36)
[2018-07-01] MEDS: FISH OIL 1,000 MG CAPSULE PO SCH (09:02)
[2018-07-01] MEDS: Zithromax 500 MG/ 250 ML NaCl Premix 500 MG/250 ML IVPB IV SCH (09:04)
[2018-07-01] MEDS ORDERED: TORSEMIDE PO SCH (10:00)
[2018-07-01] MEDS ORDERED: EPA PO SCH (10:00)
[2018-07-01] MEDS ORDERED: BABY ASPIRIN 81 MG CHEW PO SCH (10:00)
[2018-07-01] MEDS ORDERED: DHA PO SCH (10:00)
[2018-07-01] MEDS ORDERED: OMEGA PO SCH (10:00)
[2018-07-01] MEDS ORDERED: FISH OIL PO SCH (10:00)
[2018-07-01] MEDS: Zofran 4 MG/2 ML VIAL IV PRN ×2 (10:01→21:36)
[2018-07-01] MEDS: MORPHINE SULFATE 2 MG INJ IV PRN ×2 (10:06→21:43)
[2018-07-01] MEDS: ROCEPHIN 1 Gm-D5w 50 ml Bag** 1 G/50 ML IVPB IV SCH (20:06)
[2018-07-01] MEDS: ZOCOR 20MG PO SCH (21:35)
[2018-07-01] MEDS: Pepcid 20 MG PO SCH (21:35)
[2018-07-01] MEDS: XANAX 1 MG PO PRN (21:43)
[2018-07-01] MEDS ORDERED: NON-FORMULARY ITEM (Atorvastatin Calcium [Lipitor] 80 MG) PO SCH (22:00)
[2018-07-02] MEDS: solu-MEDROL 125 MG IV SCH ×2 (02:39→07:24)
[2018-07-02] MEDS: PROVENTIL 2.5 MG/3 ML NEB IH SCH ×6 (03:33→23:40)
[2018-07-02] MEDS: Sodium Chloride 0.9% 1000 ML 1,000 ML IV SCH ×2 (04:38→15:42)
[2018-07-02 05:36] LABS: BASOPHIL % 0.1 % (0.0-0.4); Basophil (Absolute #) 0.01 (0-0.4); Eosinophil (Absolute #) 0 (0-0.5); Granulocytes % 86.4 % (36.0-66.0); Hematocrit 31.3 % (35-47); Hemoglobin 9.5 gm/dl (12.0-16.0); Lymphocyte (Absolute #) 1.06 (1.0-4.6); Lymphocytes % 8.6 % (24.0-44.0); Mean Cell Volume 105.7 fl (78-100); Mean Corpuscular Hgb Concent. 30.4 g/dl (32-36); Mean Platelet Volume 11.5 fl (6-9.5); Monocytes % 4.9 % (0.0-12.0); Platelet Count 226 K/mm3 (150-450); Red Blood Count 2.96 M/mm3 (4.1-5.4); White Blood Count 12.3 K/mm3 (4.0-10.5)
[2018-07-02 05:48] LABS: ALBUMIN 4.6 g/dL (3.5-5.0); ANION GAP 20.8 MEQ/L (5-15); BILIRUBIN,TOTAL 0.4 mg/dL (0.2-1.3); Creatinine 1 1.08 mg/dL (0.52-1.04); Potassium 3.9 mmol/L (3.5-5.1); Total Protein 7.4 g/dL (6.3-8.2)
[2018-07-02] MEDS: Aldactone 25 MG PO SCH ×2 (09:15→17:20)
[2018-07-02] MEDS: Zithromax 500 MG/ 250 ML NaCl Premix 500 MG/250 ML IVPB IV SCH (09:15)
[2018-07-02] MEDS: FISH OIL 1,000 MG CAPSULE PO SCH (09:15)
[2018-07-02] MEDS: Protonix 40MG Tablet PO SCH (09:15)
[2018-07-02] MEDS: DEMADEX 20 MG PO SCH ×2 (09:16→21:34)
[2018-07-02] MEDS: Glucophage XR 500 MG PO SCH (09:16)
[2018-07-02] MEDS: PLAVIX 75 MG Tablet PO SCH (09:16)
[2018-07-02] MEDS: Toprol-Xl 25MG Tablets PO SCH (09:16)
[2018-07-02] MEDS: Cymbalta 30 MG Capsule PO SCH (09:16)
[2018-07-02] MEDS: ECOTRIN 81 MG PO SCH (09:16)
[2018-07-02] MEDS: NEURONTIN 300 MG PO SCH ×2 (09:16→21:34)
[2018-07-02] MEDS: PHENERGAN 25 MG PO PRN ×4 (09:18→21:35)
[2018-07-02] MEDS: MORPHINE SULFATE 2 MG INJ IV PRN ×3 (10:16→18:56)
[2018-07-02] MEDS: Zofran 4 MG/2 ML VIAL IV PRN (10:16)
[2018-07-02] MEDS: XANAX 1 MG PO PRN ×2 (10:21→21:39)
[2018-07-02] MEDS: TYLENOL 325 MG PO PRN ×2 (11:27→20:03)
--- NOTE | 2018-07-02 13:16 | PCM.NOTE ---
Date and Time: 07/02/18 1310 Subjective Assessment: Pt is breathing better but still having [place]. Her biggest complaint is R shoulder pain, "it hurts worse than the foot." She is having nausea with her meds and has had vomiting with norco and percocet in the past. she thinks if she has phenergan before her pain meds she will be less nauseated. Objective Exam General Appearance: mild distress (holding ice pack to R shoulder), alert Neurologic Exam: oriented x 3, cooperative Skin Exam: normal color, warm, dry, No rash Respiratory Exam: lungs clear, diminished breath sounds (good air exchange), wheezing (RUL), No crackles/rales, No rhonchi Cardiovascular Exam: regular rate/rhythm, normal heart sounds, No murmur Extremity Exam: other (R shoulder exam limited by pain - ttp anterior and superior proximal shoulder. no crepitus. movement limited by pain.) OBJECTIVE DATA Vital Signs: Vital Signs - 24 hr Temp Pulse Resp BP Pulse Ox 07/02/18 12:00 18 07/02/18 07:39 97.8 F 84 18 118/56 98 07/02/18 07:31 18 07/02/18 06:42 74 14 98 07/02/18 04:00 18 07/02/18 03:53 98.1 F 79 18 103/61 94 L 07/02/18 03:35 79 18 94 L 07/02/18 00:00 20 07/01/18 23:42 98.2 F 81 20 113/55 96 07/01/18 23:22 81 20 96 07/01/18 20:00 18 07/01/18 19:58 98.9 F 86 18 119/64 97 07/01/18 19:34 80 20 95 07/01/18 16:00 98.6 F 89 20 102/56 98 07/01/18 14:46 87 24 94 L Pain Assessment - Last Documented Pain Intensity 7 Pain Scale Used 0-10 Pain Scale Intake and Output: Intake & Output 06/30/18 07/01/18 07/02/18 07/03/18 11:59 11:59 11:59 11:59 Intake Total 8045 8907 Output Total 2650 1800 Balance -905 1987 Weight 98.8 kg 98.8 kg Lab Results: Accuchecks Date 07/02/18 Date 07/02/18 Date 07/01/18 Date 07/01/18 Time 13:00 Time 07:24 Time 21:30 Time 16:30 Accucheck Value: 299 Accucheck Value: 249 Accucheck Value: 304 Accucheck Value: 224 Lab Results-Last 24 Hours 07/02/18 07/02/18 Range/Units 05:25 05:25 WBC 12.3 H (4.0-10.5) K/mm3 RBC 2.96 L (4.1-5.4) M/mm3 Hgb 9.5 L (12.0-16.0) gm/dl Hct 31.3 L (35-47) % MCV 105.7 H (78-100) fl MCH 32.0 (26-32) pg MCHC 30.4 L (32-36) g/dl RDW 14.0 (11.5-14.0) % Plt Count 226 (150-450) K/mm3 MPV 11.5 H (6-9.5) fl Gran % 86.4 H (36.0-66.0) % Eos # (Auto) 0 (0-0.5) Absolute Lymphs (auto) 1.06 (1.0-4.6) Absolute Monos (auto) 0.60 (0.0-1.3) Lymphocytes % 8.6 L (24.0-44.0) % Monocytes % 4.9 (0.0-12.0) % Eosinophils % 0.0 (0.00-5.0) % Basophils % 0.1 (0.0-0.4) % Absolute Granulocytes 10.67 H (1.4-6.9) Basophils # 0.01 (0-0.4) Sodium 138 (137-145) mmol/L Potassium 3.9 (3.5-5.1) mmol/L Chloride 98 (98-107) mmol/L Carbon Dioxide 23 (22-30) mmol/L Anion Gap 20.8 H (5-15) MEQ/L BUN 28 H (7-17) mg/dL Creatinine 1.08 H (0.52-1.04) mg/dL Estimated GFR 55.0 ML/MIN Glucose 261 H (74-106) mg/dL Calcium 8.0 L (8.4-10.2) mg/dL Total Bilirubin 0.40 (0.2-1.3) mg/dL AST 18 (14-36) U/L ALT 43 H (0-35) U/L Alkaline Phosphatase 62 (38-126) U/L Serum Total Protein 7.4 (6.3-8.2) g/dL Albumin 4.6 (3.5-5.0) g/dL Radiology Exams: Radiology Procedures Category Date Time Status CHEST 1 VIEW (PORTABLE) Stat Exams 06/30/18 17:34 Completed CHEST 2 VIEWS (PA AND LAT) Routine Exams 07/01/18 07:45 Completed FOOT (MINIMUM 3 VIEWS) Stat Exams 06/30/18 14:53 Completed FOOT (MINIMUM 3 VIEWS) Stat Exams 06/30/18 15:27 Completed SHOULDER Routine Exams 07/02/18 Ordered Assessment/Plan (1) Pneumonia Current Visit: Yes Status: Acute Onset Date: ~06/30/18 Qualifiers: Pneumonia type: due to unspecified organism Laterality: bilateral Lung location: lower lobe of lung Qualified Code(s): J18.1 - Lobar pneumonia, unspecified organism Assessment & Plan: on rocephin and zithromax. I decreased her steroid somewhat due to her hyperglycemia. She is only wheezing in a small area of her lung briceno. Code(s): J18.9 - PNEUMONIA, UNSPECIFIED ORGANISM (2) Shoulder pain, right Current Visit: Yes Status: Acute Qualifiers: Chronicity: acute Qualified Code(s): M25.511 - Pain in right shoulder Assessment & Plan: will check XR. morphine prn Code(s): M25.511 - PAIN IN RIGHT SHOULDER (3) Foot fracture, left Current Visit: Yes Status: Acute Onset Date: ~06/30/18 Qualifiers: Encounter type: initial encounter Fracture type: closed Qualified Code(s) : S92.902A - Unspecified fracture of left foot, initial encounter for closed fracture Assessment & Plan: boot in place. Code(s): S92.902A - UNSP FRACTURE OF LEFT FOOT, INIT ENCNTR FOR CLOSED FRACTURE (4) Chronic congestive heart failure Current Visit: No Status: Chronic Qualifiers: Qualified Code(s): I50.32 - Chronic diastolic (congestive) heart failure Code(s): I50.9 - HEART FAILURE, UNSPECIFIED (5) Coronary artery disease Current Visit: No Status: Chronic Qualifiers: Coronary Disease-Associated Artery/Lesion type: [place] artery [place] vs. transplanted heart: [place] heart Associated angina: with stable angina Qualified Code(s): I25.119 - Atherosclerotic heart disease of [place] coronary artery with unspecified angina pectoris Code(s): I25.10 - ATHSCL HEART DISEASE OF [place] CORONARY ARTERY W/O ANG PCTRS (6) Hypertension Current Visit: No Status: Chronic Code(s): I10 - ESSENTIAL (PRIMARY) HYPERTENSION (7) Diabetes Current Visit: Yes Status: Acute Qualifiers: Diabetes mellitus type: type 2 Diabetes mellitus [facility] insulin use: without [facility] use Diabetes mellitus complication status: without complication Qualified Code(s): E11.9 - Type 2 diabetes mellitus without complications Assessment & Plan: she reports BS at home 70-110. Likely elevated here due to steroids. Will check a1c however. Holding metformin currently due to elevated lactate and possibility of further imaging. Code(s): E11.9 - TYPE 2 DIABETES MELLITUS WITHOUT COMPLICATIONS
[2018-07-02] MEDS: solu-MEDROL 40 MG IV SCH ×2 (13:18→21:35)
[2018-07-02] MEDS: ENOXAPARIN SODIUM SQ SCH (14:25)
[2018-07-02 15:14] LABS: Lactic Acid 5.5 (0.4-2.0)
--- NOTE | 2018-07-02 17:38 | XRAY ---
Indication: Pain following injury. Comparison: None 3 views of the right shoulder demonstrates mild osteopenia and mild AC degenerative arthropathy. No other bony, articular, or soft tissue abnormalities.
[2018-07-02] MEDS: ROCEPHIN 1 Gm-D5w 50 ml Bag** 1 G/50 ML IVPB IV SCH (19:38)
[2018-07-02 21:07] LABS: Lactic Acid 3.9 (0.4-2.0)
[2018-07-02] MEDS: Pepcid 20 MG PO SCH (21:34)
[2018-07-02] MEDS: ZOCOR 20MG PO SCH (21:35)
[2018-07-02] MEDS: NovoLOG Insulin SQ PRN (21:36)
[2018-07-03] MEDS: Sodium Chloride 0.9% 1000 ML 1,000 ML IV SCH ×3 (00:13→22:23)
[2018-07-03] MEDS: MORPHINE SULFATE 2 MG INJ IV PRN ×2 (00:47→09:42)
[2018-07-03] MEDS: TYLENOL 325 MG PO PRN ×2 (03:15→21:14)
[2018-07-03] MEDS: PROVENTIL 2.5 MG/3 ML NEB IH SCH ×6 (03:37→22:53)
[2018-07-03] MEDS: solu-MEDROL 40 MG IV SCH ×3 (05:18→22:07)
[2018-07-03] MEDS: PHENERGAN 25 MG PO PRN ×3 (05:40→17:54)
[2018-07-03 05:58] LABS: Lactic Acid 3.2 (0.4-2.0)
[2018-07-03 06:04] LABS: Hematocrit 31.4 % (35-47); Hemoglobin 9.3 gm/dl (12.0-16.0); Mean Cell Volume 107.2 fl (78-100); Mean Corpuscular Hemoglobin 31.7 pg (26-32); Mean Corpuscular Hgb Concent. 29.6 g/dl (32-36); Mean Platelet Volume 11.4 fl (6-9.5); Platelet Count 218 K/mm3 (150-450); Red Blood Count 2.93 M/mm3 (4.1-5.4); Red Cell Distribution Width 14.1 % (11.5-14.0); White Blood Count 11.9 K/mm3 (4.0-10.5)
[2018-07-03 06:25] LABS: ANION GAP 18.7 MEQ/L (5-15); Calcium 7.7 mg/dL (8.4-10.2); Creatinine 1 1.21 mg/dL (0.52-1.04); Potassium 4.3 mmol/L (3.5-5.1)
[2018-07-03 06:34] LABS: BAND 2 % (0.0-2.0); Lymphocytes 15 % (24-44); Monocyte 3 % (0.0-12.0); Neutrophils 80 % (36.0-66.0); Platelet Estimate NORMAL (NORMAL); Total Cells Counted 100
[2018-07-03 06:35] LABS: ANISOCYTOSIS 1+; Polychromasia 1+
[2018-07-03] MEDS: Zithromax 500 MG/ 250 ML NaCl Premix 500 MG/250 ML IVPB IV SCH (09:48)
[2018-07-03] MEDS: Aldactone 25 MG PO SCH ×2 (09:49→17:34)
[2018-07-03] MEDS: ENOXAPARIN SODIUM SQ SCH (09:49)
[2018-07-03] MEDS: PLAVIX 75 MG Tablet PO SCH (09:50)
[2018-07-03] MEDS: Protonix 40MG Tablet PO SCH (09:50)
[2018-07-03] MEDS: Cymbalta 30 MG Capsule PO SCH (09:50)
[2018-07-03] MEDS: FISH OIL 1,000 MG CAPSULE PO SCH (09:50)
[2018-07-03] MEDS: ECOTRIN 81 MG PO SCH (09:50)
[2018-07-03] MEDS: Toprol-Xl 25MG Tablets PO SCH (09:50)
[2018-07-03] MEDS: DEMADEX 20 MG PO SCH ×2 (09:50→22:06)
[2018-07-03] MEDS: NEURONTIN 300 MG PO SCH ×2 (09:59→22:04)
[2018-07-03] MEDS: NovoLOG Insulin SQ PRN ×2 (12:44→22:24)
--- NOTE | 2018-07-03 13:32 | PCM.NOTE ---
Date and Time: 07/03/18 1327 Subjective Assessment: Pt thinks her breathing is somewhat better but her sees no change in her dyspnea on exertion. R shoulder still hurting. Pt in bed eating fish and broccoli. She c/o frequent gas for the past few years. - Review of Systems Constitutional: No Fever Respiratory: Cough, Short Of Breath Musculoskeletal: Joint Pain Objective Exam General Appearance: no apparent distress, alert Neurologic Exam: oriented x 3, cooperative Skin Exam: normal color, warm, dry, No rash Respiratory Exam: diminished breath sounds (good air exchange), wheezing ( scattered expiratory) Cardiovascular Exam: regular rate/rhythm, normal heart sounds, No murmur Gastrointestinal/Abdomen Exam: soft, normal bowel sounds, No tenderness, No distention, No mass OBJECTIVE DATA Vital Signs: Vital Signs - 24 hr Temp Pulse Resp BP Pulse Ox 07/03/18 09:40 16 07/03/18 08:00 97.8 F 68 16 111/59 92 L 07/03/18 07:08 76 18 98 07/03/18 04:00 12 07/03/18 03:53 97.9 F 74 12 132/77 98 07/03/18 03:38 68 18 92 L 07/03/18 00:00 17 07/02/18 23:42 72 18 94 L 07/02/18 23:32 97.9 F 73 17 106/60 92 L 07/02/18 20:00 17 07/02/18 19:33 76 18 93 L 07/02/18 19:24 98.0 F 79 17 119/72 96 07/02/18 16:00 97.9 F 85 20 108/60 100 07/02/18 14:52 106 H 20 97 Pain Assessment - Last Documented Pain Intensity 2 Pain Scale Used 0-10 Pain Scale Intake and Output: Intake & Output 07/01/18 07/02/18 07/03/18 07/04/18 11:59 11:59 11:59 11:59 Intake Total 3175 3787 4722 Output Total 2650 1800 3700 Balance -905 1987 1022 Weight 98.8 kg 98.8 kg Lab Results: Accuchecks Date 07/03/18 Date 07/02/18 Date 07/02/18 Time 07:30 Time 22:00 Time 17:04 Accucheck Value: 179 Accucheck Value: 255 Accucheck Value: 222 Lab Results-Last 24 Hours 07/02/18 07/02/18 07/02/18 Range/Units 05:20 15:05 21:00 WBC (4.0-10.5) K/mm3 RBC (4.1-5.4) M/mm3 Hgb (12.0-16.0) gm/dl Hct (35-47) % MCV (78-100) fl MCH (26-32) pg MCHC (32-36) g/dl RDW (11.5-14.0) % Plt Count (150-450) K/mm3 MPV (6-9.5) fl Segmented Neutrophils (36.0-66.0) % Band Neutrophils (0.0-2.0) % Lymphocytes (Manual) (24-44) % Monocytes (Manual) (0.0-12.0) % Platelet Estimate (NORMAL) RBC Morphology Polychromasia Anisocytosis Sodium (137-145) mmol/L Potassium (3.5-5.1) mmol/L Chloride (98-107) mmol/L Carbon Dioxide (22-30) mmol/L Anion Gap (5-15) MEQ/L BUN (7-17) mg/dL Creatinine (0.52-1.04) mg/dL Estimated GFR ML/MIN Glucose (74-106) mg/dL Hemoglobin A1c 6.08 H (4.5-6.0) % Lactic Acid 5.5 H 3.9 H (0.4-2.0) Calcium (8.4-10.2) mg/dL 07/03/18 07/03/18 07/03/18 Range/Units 05:25 05:25 05:55 WBC 11.9 H (4.0-10.5) K/mm3 RBC 2.93 L (4.1-5.4) M/mm3 Hgb 9.3 L (12.0-16.0) gm/dl Hct 31.4 L (35-47) % MCV 107.2 H (78-100) fl MCH 31.7 (26-32) pg MCHC 29.6 L (32-36) g/dl RDW 14.1 H (11.5-14.0) % Plt Count 218 (150-450) K/mm3 MPV 11.4 H (6-9.5) fl Segmented Neutrophils 80 H (36.0-66.0) % Band Neutrophils 2 (0.0-2.0) % Lymphocytes (Manual) 15 L (24-44) % Monocytes (Manual) 3 (0.0-12.0) % Platelet Estimate NORMAL (NORMAL) RBC Morphology ABNORMAL Polychromasia 1+ Anisocytosis 1+ Sodium 140 (137-145) mmol/L Potassium 4.3 (3.5-5.1) mmol/L Chloride 100 (98-107) mmol/L Carbon Dioxide 26 (22-30) mmol/L Anion Gap 18.7 H (5-15) MEQ/L BUN 28 H (7-17) mg/dL Creatinine 1.21 H (0.52-1.04) mg/dL Estimated GFR 48.2 ML/MIN Glucose 179 H (74-106) mg/dL Hemoglobin A1c (4.5-6.0) % Lactic Acid 3.2 H (0.4-2.0) Calcium 7.7 L (8.4-10.2) mg/dL Radiology Exams: Radiology Procedures Category Date Time Status SHOULDER Routine Exams 07/02/18 14:57 Completed Assessment/Plan (1) Pneumonia Current Visit: Yes Status: Acute Onset Date: ~06/30/18 Qualifiers: Pneumonia type: due to unspecified organism Laterality: bilateral Lung location: lower lobe of lung Qualified Code(s): J18.1 - Lobar pneumonia, unspecified organism Assessment & Plan: Will change antibiotics from zithromax/rocephin (day #3) to levaquin as there has been minimal, if any, improvement since yesterday. I did decrease her steroid yesterday but I feel she would do better on the levaquin. Code(s): J18.9 - PNEUMONIA, UNSPECIFIED ORGANISM (2) Shoulder pain, right Current Visit: Yes Status: Acute Qualifiers: Chronicity: acute Qualified Code(s): M25.511 - Pain in right shoulder Assessment & Plan: likely sprain s/p all. no fx on XR. Code(s): M25.511 - PAIN IN RIGHT SHOULDER (3) Foot fracture, left Current Visit: Yes Status: Acute Onset Date: ~06/30/18 Qualifiers: Encounter type: initial encounter Fracture type: closed Qualified Code(s) : S92.902A - Unspecified fracture of left foot, initial encounter for closed fracture Code(s): S92.902A - UNSP FRACTURE OF LEFT FOOT, INIT ENCNTR FOR CLOSED FRACTURE (4) Chronic congestive heart failure Current Visit: No Status: Chronic Qualifiers: Qualified Code(s): I50.32 - Chronic diastolic (congestive) heart failure Assessment & Plan: stable with IVF at 100cc/hr. Code(s): I50.9 - HEART FAILURE, UNSPECIFIED (5) Coronary artery disease Current Visit: No Status: Chronic Qualifiers: Coronary Disease-Associated Artery/Lesion type: [place] artery [place] vs. 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 SS coverage. Code(s): E11.9 - TYPE 2 DIABETES MELLITUS WITHOUT COMPLICATIONS
[2018-07-03] MEDS: Levofloxacin 500MG/100ML D5W 500 MG/100 ML BAG IV SCH (14:11)
[2018-07-03] MEDS: MORPHINE SULFATE 4 MG INJ IV PRN ×2 (17:55→22:34)
[2018-07-03] MEDS: ZOCOR 20MG PO SCH (22:03)
[2018-07-03] MEDS: Pepcid 20 MG PO SCH (22:04)
[2018-07-03] MEDS: XANAX 1 MG PO PRN (22:24)
[2018-07-04] MEDS: PROVENTIL 2.5 MG/3 ML NEB IH SCH ×6 (03:13→23:17)
[2018-07-04] MEDS: MORPHINE SULFATE 4 MG INJ IV PRN ×4 (03:51→21:12)
[2018-07-04] MEDS: solu-MEDROL 40 MG IV SCH (06:55)
[2018-07-04] MEDS: NovoLOG Insulin SQ PRN ×4 (07:55→21:12)
[2018-07-04] MEDS: Aldactone 25 MG PO SCH ×2 (09:09→17:07)
[2018-07-04] MEDS: Cymbalta 30 MG Capsule PO SCH (09:09)
[2018-07-04] MEDS: DEMADEX 20 MG PO SCH ×2 (09:10→21:08)
[2018-07-04] MEDS: ENOXAPARIN SODIUM SQ SCH (09:13)
[2018-07-04] MEDS: ECOTRIN 81 MG PO SCH (09:13)
[2018-07-04] MEDS: FISH OIL 1,000 MG CAPSULE PO SCH (09:14)
[2018-07-04] MEDS: NEURONTIN 300 MG PO SCH ×2 (09:15→21:08)
[2018-07-04] MEDS: Levofloxacin 500MG/100ML D5W 500 MG/100 ML BAG IV SCH (09:15)
[2018-07-04] MEDS: PLAVIX 75 MG Tablet PO SCH (09:16)
[2018-07-04] MEDS: Protonix 40MG Tablet PO SCH (09:16)
[2018-07-04] MEDS: Toprol-Xl 25MG Tablets PO SCH (09:17)
[2018-07-04] MEDS: PHENERGAN 25 MG PO PRN ×2 (09:28→21:12)
[2018-07-04] MEDS: Sodium Chloride 0.9% 1000 ML 1,000 ML IV SCH ×2 (09:28→21:07)
[2018-07-04 10:07] LABS: Lactic Acid 4.4 (0.4-2.0)
[2018-07-04] MEDS: Glucophage XR 500 MG PO SCH ×2 (10:07→21:08)
[2018-07-04] MEDS: Singulair 10 MG PO SCH (10:07)
[2018-07-04] MEDS: CLARITIN 10 MG PO SCH (10:07)
[2018-07-04] MEDS: solu-MEDROL 125 MG IV SCH ×3 (11:34→23:05)
[2018-07-04] MEDS: ZOCOR 20MG PO SCH (21:08)
[2018-07-04] MEDS: Pepcid 20 MG PO SCH (21:08)
[2018-07-04] MEDS: XANAX 1 MG PO PRN (21:12)
[2018-07-05] MEDS: MORPHINE SULFATE 4 MG INJ IV PRN ×2 (02:25→08:40)
[2018-07-05] MEDS: PHENERGAN 25 MG PO PRN ×3 (02:25→15:34)
[2018-07-05] MEDS: PROVENTIL 2.5 MG/3 ML NEB IH SCH ×6 (04:17→23:25)
[2018-07-05 05:34] LABS: Hemoglobin 11.1 gm/dl (12.0-16.0); Mean Corpuscular Hgb Concent. 30.8 g/dl (32-36); Mean Platelet Volume 11.7 fl (6-9.5); Platelet Count 200 K/mm3 (150-450); Red Blood Count 3.43 M/mm3 (4.1-5.4); Red Cell Distribution Width 14.3 % (11.5-14.0); White Blood Count 11.3 K/mm3 (4.0-10.5)
[2018-07-05 05:52] LABS: ALBUMIN 4.9 g/dL (3.5-5.0); ANION GAP 20.8 MEQ/L (5-15); BILIRUBIN,TOTAL 0.6 mg/dL (0.2-1.3); Calcium 7.9 mg/dL (8.4-10.2); Creatinine 1 1.03 mg/dL (0.52-1.04); Potassium 3.4 mmol/L (3.5-5.1); Total Protein 8.3 g/dL (6.3-8.2)
[2018-07-05 05:53] LABS: Mean Corpuscular Hemoglobin 32.3 pg (26-32)
[2018-07-05] MEDS: solu-MEDROL 125 MG IV SCH ×3 (05:56→18:00)
[2018-07-05] MEDS: NovoLOG Insulin SQ PRN ×3 (08:18→16:58)
[2018-07-05] MEDS: Sodium Chloride 0.9% 1000 ML 1,000 ML IV SCH (08:20)
[2018-07-05] MEDS ORDERED: PHARMACY DOSING REQUEST MC ONE (08:49)
[2018-07-05] MEDS ORDERED: Norco 10/325 MG Tablet PO PRN (08:52)
[2018-07-05 09:52] LABS: BAND 1 % (0.0-2.0); Lymphocytes 11 % (24-44); Macrocytosis 1+; Monocyte 3 % (0.0-12.0); Neutrophils 85 % (36.0-66.0); Platelet Estimate NORMAL (NORMAL); Polychromasia 1+; Total Cells Counted 100
[2018-07-05] MEDS ORDERED: THEOPHYLLINE ER 24HR PO SCH (10:00)
[2018-07-05] MEDS: FISH OIL 1,000 MG CAPSULE PO SCH (10:26)
[2018-07-05] MEDS: PLAVIX 75 MG Tablet PO SCH (10:26)
[2018-07-05] MEDS: Cymbalta 30 MG Capsule PO SCH (10:26)
[2018-07-05] MEDS: ECOTRIN 81 MG PO SCH (10:26)
[2018-07-05] MEDS: Miralax Powder 17GM PACKET PO SCH (10:26)
[2018-07-05] MEDS: Glucophage XR 500 MG PO SCH ×2 (10:26→20:37)
[2018-07-05] MEDS: NEURONTIN 300 MG PO SCH ×2 (10:26→20:38)
[2018-07-05] MEDS: ENOXAPARIN SODIUM SQ SCH (10:27)
[2018-07-05] MEDS: CLARITIN 10 MG PO SCH (10:27)
[2018-07-05] MEDS: Aldactone 25 MG PO SCH ×2 (10:27→17:58)
[2018-07-05] MEDS: Toprol-Xl 25MG Tablets PO SCH (10:27)
[2018-07-05] MEDS: Protonix 40MG Tablet PO SCH (10:27)
[2018-07-05] MEDS: Singulair 10 MG PO SCH (10:27)
[2018-07-05] MEDS: Levofloxacin 500MG/100ML D5W 500 MG/100 ML BAG IV SCH ×2 (10:29→11:08)
[2018-07-05] MEDS: DEMADEX 20 MG PO SCH ×2 (10:31→20:37)
[2018-07-05] MEDS: Sodium Chloride 0.9% 10 ML FLUSH Syringe IV SCH ×2 (15:27→20:40)
[2018-07-05] MEDS: Pepcid 20 MG PO SCH (20:36)
[2018-07-05] MEDS: ZOCOR 20MG PO SCH (20:36)
[2018-07-05] MEDS: XANAX 1 MG PO PRN (20:37)
[2018-07-06] MEDS: solu-MEDROL 125 MG IV SCH ×3 (00:17→12:43)
[2018-07-06] MEDS: PROVENTIL 2.5 MG/3 ML NEB IH SCH ×3 (03:48→10:42)
[2018-07-06] MEDS: Sodium Chloride 0.9% 10 ML FLUSH Syringe IV SCH (06:16)
[2018-07-06] MEDS: NovoLOG Insulin SQ PRN ×2 (08:57→12:43)
--- NOTE | 2018-07-06 09:41 | DS ---
DISCHARGE DIAGNOSES: 1) ACUTE EXACERBATION OF CHRONIC OBSTRUCTIVE PULMONARY DISEASE. 2) BRONCHOSPASM. 3) LEFT METATARSAL FRACTURE. HISTORY: The patient is a 58 year-old white female who presented to the emergency room after having passed out at home. She apparently had trouble with increasing shortness of breath. In the fall she had fractured fifth metatarsal of left foot. She skinned up her gilmore and also injured her shoulder. The patient was significantly short of breath and was kept for evaluation and management. PAST MEDICAL HISTORY: Again significant for the chronic obstructive pulmonary disease. She does see Dr. Hudson Vallejo as an outpatient. MEDICATIONS: Home medications currently include Alprazolam 1 mg t.i.d., aspirin 81 mg a day, atorvastatin 40 mg a day, Plavix 75 mg daily, gabapentin 300 mg b.i.d., metoprolol 25 mg a day, Spironolactone 25 mg b.i.d., Torsemide 20 mg at night, 30 mg in the morning, Duloxetine 60 mg a day, Metformin 500 mg b.i.d., pantoprazole 40 mg a day. She does have a nebulizer machine at home for which she uses Albuterol and a second puffer that she is not sure of. ALLERGIES: PENICILLIN. HYDROCODONE. ORAL AND IV DYE. PREDNISONE ALTHOUGH SHE HAS BEEN RECEIVING STEROIDS AND HAVING NO TROUBLE WITH THAT. HOSPITAL COURSE: She was admitted to the [facility] and treated with IV antibiotics and IV steroids. She was slow to break and they had weaned her down off the steroids but we had to boost it back up again on 07/04/2018 to 125 IV every six hours. Finally on 07/06/2018 in the morning, she was clear. She did have somewhat diminished air movement but was pretty much better. She had been with good oxygen saturations on room air basically throughout her stay. The patient was placed on Theophylline and was loaded on 07/05/2018. By morning of 07/04/2018, her theophylline level was 14.6. Her last hemoglobin was 11.1, white blood cell count 11,300, PLT count 200,000, one band and 85 polys. Her metabolic panel showed a sugar of 210 which was on IV steroids. BUN 28, creatinine 1.03. Electrolytes were essentially normal as were liver enzymes. Her blood cultures were no growth. Her chest x-ray was read as nonacute. She had an x-ray of her shoulder which showed mild osteopenia and mild AC degenerative arthropathy. The initial chest x-ray did show mild bibasilar infiltrates versus atelectasis. The foot x-ray showed incomplete oblique fracture involving the fifth metatarsal. DISCHARGE PLANS: The patient will be discharged home to follow up in the office within the next week. She is to continue to use the Albuterol PRN basis for wheezing. She is sent home on tapering dose of prednisone at 60 mg p.o. for five days and then 40 mg p.o. for five days, 20 mg p.o. for five days. She is also continued on theophylline, Singulair and Claritin. She is to return to the hospital or call should she have any increase in problems while she is at home that the Albuterol does not help.
[2018-07-06] MEDS ORDERED: THEOPHYLLINE ER 24HR PO SCH (10:00)
[2018-07-06] MEDS: CLARITIN 10 MG PO SCH (10:51)
[2018-07-06] MEDS: Toprol-Xl 25MG Tablets PO SCH (10:51)
[2018-07-06] MEDS: PLAVIX 75 MG Tablet PO SCH (10:51)
[2018-07-06] MEDS: Glucophage XR 500 MG PO SCH (10:51)
[2018-07-06] MEDS: Aldactone 25 MG PO SCH (10:51)
[2018-07-06] MEDS: Cymbalta 30 MG Capsule PO SCH (10:52)
[2018-07-06] MEDS: ECOTRIN 81 MG PO SCH (10:52)
[2018-07-06] MEDS: Protonix 40MG Tablet PO SCH (10:52)
[2018-07-06] MEDS: FISH OIL 1,000 MG CAPSULE PO SCH (10:52)
[2018-07-06] MEDS: PHENERGAN 25 MG PO PRN (10:52)
[2018-07-06] MEDS: NEURONTIN 300 MG PO SCH (10:52)
[2018-07-06] MEDS: Singulair 10 MG PO SCH (10:53)
[2018-07-06] MEDS: DEMADEX 20 MG PO SCH (10:53)
[2018-07-06] MEDS: Levofloxacin 500MG/100ML D5W 500 MG/100 ML BAG IV SCH (10:56)
[2018-07-06] MEDS: ENOXAPARIN SODIUM SQ SCH (11:03)
[2018-07-06] MEDS: Miralax Powder 17GM PACKET PO SCH (11:03)
[2018-07-06 11:55] VITALS: BP 120/62; PULSE 78; O2SAT 99
== END 2018-07-06 12:00 | disposition home or self-care (01) | DRG 190 ==
LOC: ED 14:02 → MED SURG 19:44
PROVIDERS: ADMIT Family Medicine; ATTEND Family Medicine
DX: J44.1 Chronic obstructive pulmonary disease with (acute) exacerbation (principal); J18.9 Pneumonia, unspecified organism; I25.810 Atherosclerosis of coronary artery bypass graft(s) without angina pectoris; I50.9 Heart failure, unspecified; R19.8 Other specified symptoms and signs involving the digestive system and abdomen; J98.01 Acute bronchospasm; M85.872 Other specified disorders of bone density and structure, left ankle and foot; S80.812A Abrasion, left lower leg, initial encounter; S50.12XA Contusion of left forearm, initial encounter; S92.902A Unspecified fracture of left foot, initial encounter for closed fracture; W01.0XXA Fall on same level from slipping, tripping and stumbling without subsequent striking against object, initial encounter; F32.9 Major depressive disorder, single episode, unspecified; I10 Essential (primary) hypertension; R55 Syncope and collapse; E11.9 Type 2 diabetes mellitus without complications; Z79.4 Long term (current) use of insulin; K21.9 Gastro-esophageal reflux disease without esophagitis; J44.9 Chronic obstructive pulmonary disease, unspecified; S80.811A Abrasion, right lower leg, initial encounter; N28.9 Disorder of kidney and ureter, unspecified; M25.511 Pain in right shoulder; F41.9 Anxiety disorder, unspecified; Z79.899 Other long term (current) drug therapy; Z86.73 Personal history of transient ischemic attack (TIA), and cerebral infarction without residual deficits; I25.10 Atherosclerotic heart disease of native coronary artery without angina pectoris
CPT/HCPCS: 36000; 36415; 71045; 71046; 73030; 73630; 80048; 80053; 80198; 80307; 81001; 82962; 83036; 83605; 84484; 85025; 85379; 87040; 87631; 90471; 93005; 93041; 94150; 94640; 94660; 94760; 94762; 96365; 99285; G0480; P9612; 90715; J0456; J0696; J1650; J1956; J2270; J2405; J2920; J2930; J7609; A9270-GY

== ENCOUNTER 2018-09-08 11:29 | Emergency (ER) | payer MEDICARE ==
--- NOTE | 2018-09-08 12:33 | ERPHSYRPT ---
- History of Present Illness Time Seen by Provider: 09/08/18 12:20 Source: patient, family Exam Limitations: no limitations Patient Subjective Stated Complaint: pt reports falling at home. no one witnessed fall but states pt's daughter said she wasn't responsive after the fall. Triage Nursing Assessment: pt a&ox3. skin warm, dry, pink. pt has large bruise and swelling to l [place]. L leg weaker than right but pt has history of cva that affected the left side. bruising also noted to r forearm. pt denies dizziness but is c/o headache Physician History: 58-year-old white female brought by her family with complaint of left leg pain fall, loss of consciousness. According to the patient she went to [place] after the dog. She apparently had fallen and had lost consciousness according to the family unknown period of time. Patient arrives with complaint of pain and swelling of her left leg. Patient really doesn't remember the fall. This occurred this morning at around 11:00. Past medical history includes seizures, stroke, asthma, congestive heart failure , COPD, hyperlipidemia, high blood pressure, GERD, degenerative disc disease, anxiety, depression, CABG, cardiac stent, ulcers on her left eye Past surgical history includes CABG, cardiac stent, cardiac catheter, appendectomy, bowel surgery, cholecystectomy, exploratory laparotomy, , hysterectomy, bowel resection 3 secondary to adhesions, ORIF of her foot AAA repair with CABG Timing/Duration: today (11:00) Severity: moderate Modifying Factors: Improves With: nothing Associated Symptoms: headaches, syncope, other (left leg pain), No nausea, No vomiting, No abdominal pain, No shortness of breath, No heartburn, No diaphoresis, No cough, No chills, No chest pain, No fever, No loss of appetite, No malaise, No rash, No seizure, No weakness Allergies/Adverse Reactions: Iodinated Contrast- Oral and IV Dye [Iodinated Contrast Media - IV Dye] Allergy (Severe, Verified 06/30/18 14:25) Shortness of Breath anaphylaxis Penicillins Allergy (Unknown, Verified 06/30/18 14:25) Rash hydrocodone bitartrate [From Vicodin] Adverse Reaction (Mild, Verified 06/30/18 14:25) Vomiting prednisone Adverse Reaction (Unknown, Verified 06/30/18 14:25) Swelling on prednisone now but makes sick and irritable Home Medications: Alprazolam 1 mg [Xanax 1 mg] 1 mg PO TID PRN PRN 01/05/17 [History] Aspirin 81 gm Chew [Baby Aspirin 81 mg Chew] 81 mg PO DAILY 01/05/17 [ History] Atorvastatin Calcium [Lipitor] 80 mg PO HS 01/05/17 [History] Clopidogrel Bisulfate 75 mg [PLAVIX 75 MG Tablet] 75 mg PO DAILY 01/05/17 [History] Gabapentin 300 mg PO BID 01/05/17 [History] Metoprolol Succinate [Toprol Xl] 25 mg PO DAILY 01/05/17 [History] Spironolactone 25 mg [Aldactone 25 MG] 25 mg PO BID 01/05/17 [History] Torsemide [Demadex] 20 mg PO HS 01/05/17 [History] Torsemide [Demadex] 30 mg PO DAILY 01/05/17 [History] Duloxetine HCl 30 mg [Cymbalta 30 MG Capsule] 60 mg PO DAILY 06/30/18 [ History] Famotidine 20 mg [Pepcid 20 MG] 40 mg PO HS 06/30/18 [History] Metformin HCl Xr 500 mg [Glucophage XR 500 MG] 500 mg PO BID 06/30/18 [ History] PANTOPRAZOLE 40 mg Tablet [Protonix 40MG Tablet] 40 mg PO DAILY 06/30/18 [ History] Albuterol 2.5 mg/3 ml Neb [Proventil 2.5 mg/3 ml Neb] 2.5 mg IH Q4HPRN PRN 09/08/18 [History] Duloxetine HCl [Cymbalta] 60 mg PO DAILY 09/08/18 [History] Folic Acid 1 mg [Folate 1 mg] 1 mg PO DAILY 09/08/18 [History] [place]-3S/Dha/Epa/Fish Oil [Fish Oil [place]-3 Softgel] 1 each PO DAILY 09/08/18 [ History] Hx Tetanus, Diphtheria Vaccination/Date Given: Yes Hx Influenza Vaccination/Date Given: No Hx Pneumococcal Vaccination/Date Given: No Immunizations Up to Date: Yes - Review of Systems Constitutional: No Fever, No Chills Eyes: No Symptoms Ears, Nose, & Throat: No Symptoms Respiratory: No Cough, No Dyspnea Cardiac: Syncope, No Chest Pain, No Edema Abdominal/Gastrointestinal: No Abdominal Pain, No Nausea, No Vomiting, No Diarrhea Genitourinary Symptoms: No Dysuria Musculoskeletal: Fall, Other (left leg pain) Skin: No Rash Neurological: Headache Psychological: No Symptoms Endocrine: No Symptoms All Other Systems: Reviewed and Negative - Past Medical History Pertinent Past Medical History: Yes Neurological History: Seizures, Stroke ENT History: Other Cardiac History: Congestive Heart Failure, High Cholesterol, Hypertension, Other Respiratory History: Asthma, CHF, COPD Endocrine Medical History: No Pertinent History Musculoskeletal History: Degenerative Disk Disease GI Medical History: GERD History: Other Psycho-Social History: Anxiety, Depression Female Reproductive Disorders: No Pertinent History Other Medical History: Open heart surgery 2009, stent, ulcers in the L eye - Past Surgical History Past Surgical History: Yes Neuro Surgical History: No Pertinent History Cardiac: CABG, Cardiac Catheterization, Cardiac Stent, Other Respiratory: No Pertinent History Gastrointestinal: Appendectomy, Bowel Surgery, Cholecystectomy, Exploratory Laparoscopy Genitourinary: No Pertinent History Musculoskeletal: Other Female Surgical History: Section, Hysterectomy Other Surgical History: BOWEL RESECTIONx3 for adhesions. ppins and plate placed in foot and then removed. TRIPLE AAA REPAIR WITH CABG - Social History Smoking Status: Never smoker How long have you smoked: 0 Exposure to second hand smoke: No Drug Use: none Patient Lives Alone: No - Female History Hx Last Menstrual Period: hyster Hx Now: No - Nursing Vital Signs Nursing Vital Signs: Initial Vital Signs Temperature 98.5 F 09/08/18 11:29 Pulse Rate 126 H 09/08/18 11:29 Respiratory Rate 12 09/08/18 11:29 Blood Pressure 95/75 09/08/18 11:29 O2 Sat by Pulse Oximetry 93 L 09/08/18 11:29 Pain Scale Pain Intensity 6 - Physical Exam General Appearance: mild distress, alert Eye Exam: PERRL/EOMI, eyes nml inspection, other Ears, Nose, Throat Exam: pharynx normal, other (bilateral hearing aids), No pharyngeal erythema Neck Exam: normal inspection, non-tender, supple, full range of motion Respiratory Exam: normal breath sounds, lungs clear, No respiratory distress Cardiovascular Exam: regular rate/rhythm, normal heart sounds, normal peripheral pulses, capillary refill <2 sec Gastrointestinal/Abdomen Exam: soft, normal bowel sounds, No tenderness, No mass Back Exam: normal inspection, normal range of motion, No CVA tenderness, No vertebral tenderness Extremity Exam: normal inspection, normal range of motion, pelvis stable Neurologic Exam: alert, oriented x 3, cooperative, 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 as tested, normal mood/affect, nml cerebellar function, nml station & gait, sensation nml, No motor deficits Skin Exam: normal color, warm, dry, No rash Lymphatic Exam: No adenopathy SpO2 Interpretation: normal (93), borderline oxygenation SpO2: 93 - Course Nursing assessment & vital signs reviewed: Yes EKG Interpreted by Me: RATE (99 bpm), NORMAL AXIS, Other (EKG: Sinus arrhythmia , 99 beats per minute, normal axis, no acute ST or T wave changes noted) - Radiology Exams Right Lower Leg X-ray Interpretation: Discussed w/ radiologist (x-ray right lower leg: Multiple medial vascular clips no other bony, articular, or soft tissue abnormalities.) - CT Exams Head CT Interpretation: Discussed w/radiologist (CT head: Impression: Stable CT head without contrast exam.) Cervical Spine CT Interpretation: Discussed w/radiologist (CT cervical spine: Impression 1. Motion artifact. 2. Grossly negative acute fracture/subluxation. 3. Stable cervical lordotic straightening and C3-C4 degenerative disc disease.) Ordered Tests: Active Orders 24 hr Category Date Time Status EKG-ER Only STAT Care 09/08/18 12:26 Active IV Insertion STAT Care 09/08/18 12:26 Active CERVICAL SPINE WO CONTRAST [CT] Stat Exams 09/08/18 12:26 Completed HEAD WITHOUT CONTRAST [CT] Stat Exams 09/08/18 12:26 Completed LOWER LEG Stat Exams 09/08/18 12:27 Completed CBC W DIFF Stat Lab 09/08/18 12:51 Completed CMP Stat Lab 09/08/18 12:51 Completed TROPONIN Q3H Lab 09/08/18 12:51 Completed TROPONIN Q3H Lab 09/08/18 18:30 Ordered TROPONIN Q3H Lab 09/08/18 21:30 Ordered TROPONIN Q3H Lab 09/09/18 00:30 Ordered Medication Summary Discontinued Medications Generic Name Dose Route Start Last Admin Trade Name Freq PRN Reason Stop Dose Admin Hydrocodone Bitart/Acetaminophen 1 tab 09/08/18 16:11 09/08/18 16:17 [place] 5/325 Mg PO 09/08/18 16:12 1 tab STAT ONE Administration Hydrocodone Bitart/Acetaminophen Confirm 09/08/18 16:14 [place] 5/325 Mg Administered 09/08/18 16:15 Dose 1 tab .ROUTE .STK-MED ONE Sodium Chloride 1,000 mls @ 999 mls/hr 09/08/18 16:11 09/08/18 16:17 Sodium Chloride 0.9% 1000 Ml IV 09/08/18 17:11 999 mls/hr .Q1H1M STA Administration Sodium Chloride Confirm 09/08/18 16:14 Sodium Chloride 0.9% 1000 Ml Administered 09/08/18 16:15 Dose 1,000 mls @ ud .ROUTE .STK-MED ONE Lab/Rad Data: Laboratory Result Diagrams 09/08/18 12:51 09/08/18 12:51 Laboratory Results 09/08/18 09/08/18 09/08/18 Range/Units 15:40 12:51 12:51 WBC (4.0-10.5) K/mm3 RBC (4.1-5.4) M/mm3 Hgb (12.0-16.0) gm/dl Hct (35-47) % MCV (78-100) fl MCH (26-32) pg MCHC (32-36) g/dl RDW (11.5-14.0) % Plt Count (150-450) K/mm3 MPV (6-9.5) fl Gran % (36.0-66.0) % Eos # (Auto) (0-0.5) Absolute Lymphs (auto) (1.0-4.6) Absolute Monos (auto) (0.0-1.3) Lymphocytes % (24.0-44.0) % Monocytes % (0.0-12.0) % Eosinophils % (0.00-5.0) % Basophils % (0.0-0.4) % Absolute Granulocytes (1.4-6.9) Basophils # (0-0.4) Sodium 139 (137-145) mmol/L Potassium 4.1 (3.5-5.1) mmol/L Chloride 99 (98-107) mmol/L Carbon Dioxide 27 (22-30) mmol/L Anion Gap 17.2 H (5-15) MEQ/L BUN 20 H (7-17) mg/dL Creatinine 0.96 (0.52-1.04) mg/dL Estimated GFR > 60.0 ML/MIN Glucose 112 H (74-106) mg/dL Calcium 8.9 (8.4-10.2) mg/dL Total Bilirubin 0.70 (0.2-1.3) mg/dL AST 27 (14-36) U/L ALT 28 (0-35) U/L Alkaline Phosphatase 63 (38-126) U/L Troponin 0.01 (0.00-0.03) ng/mL Troponin I < 0.012 (0.000-0.034) ng/mL Serum Total Protein 7.5 (6.3-8.2) g/dL Albumin 4.5 (3.5-5.0) g/dL 09/08/18 Range/Units 12:51 WBC 6.8 (4.0-10.5) K/mm3 RBC 2.96 L (4.1-5.4) M/mm3 Hgb 9.7 L (12.0-16.0) gm/dl Hct 31.3 L (35-47) % MCV 105.7 H (78-100) fl MCH 32.7 H (26-32) pg MCHC 31.0 L (32-36) g/dl RDW 15.1 H (11.5-14.0) % Plt Count 207 (150-450) K/mm3 MPV 11.0 H (6-9.5) fl Gran % 57.3 (36.0-66.0) % Eos # (Auto) 0.47 (0-0.5) Absolute Lymphs (auto) 1.68 (1.0-4.6) Absolute Monos (auto) 0.69 (0.0-1.3) Lymphocytes % 24.9 (24.0-44.0) % Monocytes % 10.2 (0.0-12.0) % Eosinophils % 7.0 H (0.00-5.0) % Basophils % 0.6 (0.0-0.4) % Absolute Granulocytes 3.87 (1.4-6.9) Basophils # 0.04 (0-0.4) Sodium (137-145) mmol/L Potassium (3.5-5.1) mmol/L Chloride (98-107) mmol/L Carbon Dioxide (22-30) mmol/L Anion Gap (5-15) MEQ/L BUN (7-17) mg/dL Creatinine (0.52-1.04) mg/dL Estimated GFR ML/MIN Glucose (74-106) mg/dL Calcium (8.4-10.2) mg/dL Total Bilirubin (0.2-1.3) mg/dL AST (14-36) U/L ALT (0-35) U/L Alkaline Phosphatase (38-126) U/L Troponin (0.00-0.03) ng/mL Troponin I (0.000-0.034) ng/mL Serum Total Protein (6.3-8.2) g/dL Albumin (3.5-5.0) g/dL - Progress Progress: improved Progress Note: 09/08/18 16:12 58-year-old white female with history of seizures, asthma, CHF, COPD, hyperlipidemia, high blood pressure, degenerative disc disease, anxiety, depression coronary artery disease Arrives with complaint of syncopal episode she states she ran out get the dog and apparently had fallen and passed out. Patient with a bruise on her left [place] area is tender Patient's head CT stable negative head CT without contrast patient's x-ray right lower leg multiple medial vascular clips no other bony, articular, or soft tissue abnormalities patient's CT C-spine impression 1. Motion artifact to grossly negative acute fracture/subluxation 3. Stable cervical lordotic straightening and C3-C4 degenerative disc disease Patient with EKG sinus arrhythmia 99 bpm normal axis no acute ST or T wave changes essentially normal EKG patient's CBC white blood cell 6.8 hemoglobin 9.7 hematocrit 31.3 platelets 207 patient's chemistry essentially normal with the exception of mild elevation of anion gap troponin within normal limits. Patient complaining of some pain in her left anterior [place] she has a mild tachycardia. Will give patient [place] 5/325 one tablet orally 1 L of normal saline. Anticipate discharge. Impression accidental fall. Syncope. Contusion left leg. Head contusion. 09/08/18 17:48 The patient is feeling better after normal saline 1 liter IV. and one norco. jeff wrap was placed on patient's left proximal leg will discharge. - Departure Time of Disposition: 17:51 Departure Disposition: Home Clinical Impression: Syncope Accidental fall Qualifiers: Encounter type: initial encounter Qualified Code(s): W19.XXXA - Unspecified fall, initial encounter Head contusion Qualifiers: Encounter type: initial encounter Contusion of head detail: unspecified part of head Qualified Code(s): S00.93XA - Contusion of unspecified part of head, initial encounter Contusion of left leg Qualifiers: Encounter type: initial encounter Qualified Code(s): S80.12XA - Contusion of left lower leg, initial encounter Condition: Fair Critical Care Time: No Referrals: ROSALIE MARTINEZ [Primary Care Provider] - Additional Instructions: Return home. Plenty of fluids. Cold packs to left leg 24-48 hours. No hazardous activity or driving. [place] as prescribed. Follow-up with your family doctor. Return for acute distress or for severe symptoms. Prescriptions: Hydrocodone/APAP 5-325 Tab^^^ [[place] 5-325 Tablet^^^] 1 tab PO Q6HPRN PRN #10 tablet MDD 6 PRN Reason: Pain
[2018-09-08 12:53] LABS: BASOPHIL % 0.6 % (0.0-0.4); Basophil (Absolute #) 0.04 (0-0.4); Eosinophil (Absolute #) 0.47 (0-0.5); Granulocyte Absolute (ANC) 3.87 (1.4-6.9); Granulocytes % 57.3 % (36.0-66.0); Hematocrit 31.3 % (35-47); Hemoglobin 9.7 gm/dl (12.0-16.0); Lymphocyte (Absolute #) 1.68 (1.0-4.6); Lymphocytes % 24.9 % (24.0-44.0); Mean Cell Volume 105.7 fl (78-100); Monocyte (Absolute #) 0.69 (0.0-1.3); Monocytes % 10.2 % (0.0-12.0); Platelet Count 207 K/mm3 (150-450); Red Blood Count 2.96 M/mm3 (4.1-5.4); Red Cell Distribution Width 15.1 % (11.5-14.0); White Blood Count 6.8 K/mm3 (4.0-10.5)
[2018-09-08 13:04] LABS: Mean Corpuscular Hemoglobin 32.7 pg (26-32)
[2018-09-08 13:05] LABS: ALBUMIN 4.5 g/dL (3.5-5.0); ALKALINE PHOSPHATASE 63 U/L (38-126); ANION GAP 17.2 MEQ/L (5-15); BLOOD UREA NITROGEN 20 mg/dL (7-17); CHLORIDE 99 mmol/L (98-107); Calcium 8.9 mg/dL (8.4-10.2); Carbon Dioxide 27 mmol/L (22-30); Creatinine 1 0.96 mg/dL (0.52-1.04); Glucose 112 mg/dL (74-106); Potassium 4.1 mmol/L (3.5-5.1); SGOT/AST 27 U/L (14-36); SGPT/ALT 28 U/L (0-35); SODIUM 139 mmol/L (137-145); Total Protein 7.5 g/dL (6.3-8.2)
--- NOTE | 2018-09-08 13:21 | XRAY ---
Indication: Head injury following fall. Multiple contiguous axial images obtained through the head without contrast. Comparison: October 24, 2017. Again age-appropriate global atrophy. No acute intracranial hemorrhage, abnormal extra-axial fluid collection, or mass effect. Fourth ventricle is midline without hydrocephalus. Lang-white matter differentiation is preserved. Bony calvarium intact. Visualized paranasal sinuses and mastoid air cells are clear. Impression: Stable negative CT head without contrast exam. CT DI 50.38
--- NOTE | 2018-09-08 13:29 | XRAY ---
Indication: Head injury following fall. Multiple contiguous axial images obtained through the cervical spine. Sagittal and coronal reformatted images obtained. Comparison: CT neck August 21, 2014. Images through the C2-C5 levels slightly degraded by motion artifact even with repeat CT. Axial images again negative for gross acute fracture, suspicious bony lesions, or spinal canal stenosis. Stable mild C3-C4 degenerative endplate spurring and congenital nonunited posterior arch C6. Sagittal and coronal reformatted images demonstrates stable cervical lordotic straightening and C3-C4 disc space narrowing. No gross acute compression fracture, subluxation, or jumped facet. Normal-appearing craniocervical junction. Visualized noncontrasted soft tissues including lung apices are unremarkable. Impression: 1. Motion artifact. 2. Grossly negative acute fracture/subluxation. 3. Stable cervical lordotic straightening and C3-C4 degenerative disc disease. CT DI 73.03
--- NOTE | 2018-09-08 13:31 | XRAY ---
Indication: Bruising following fall. Comparison: None 2 views of the left lower leg demonstrates multiple medial vascular clips. No other bony, articular, or soft tissue abnormalities.
[2018-09-08] MEDS ORDERED: NORCO 5/325 MG PO ONE (16:11)
[2018-09-08] MEDS ORDERED: Sodium Chloride 0.9% 1000 ML 1,000 ML IV STA (16:11)
[2018-09-08] MEDS ORDERED: Sodium Chloride 0.9% 1000 ML 1,000 ML ONE (16:14)
[2018-09-08] MEDS ORDERED: NORCO 5/325 MG ONE (16:14)
[2018-09-08 18:31] VITALS: BP 111/76; PULSE 106; O2SAT 95
== END 2018-09-08 18:31 | disposition home or self-care (01) ==
LOC: ED 11:29
DX: R55 Syncope and collapse (principal); S00.93XA Contusion of unspecified part of head, initial encounter; S80.12XA Contusion of left lower leg, initial encounter; M79.605 Pain in left leg; W19.XXXA Unspecified fall, initial encounter; G40.909 Epilepsy, unspecified, not intractable, without status epilepticus; J45.909 Unspecified asthma, uncomplicated; I25.810 Atherosclerosis of coronary artery bypass graft(s) without angina pectoris; I50.9 Heart failure, unspecified; J44.9 Chronic obstructive pulmonary disease, unspecified; I10 Essential (primary) hypertension; E78.5 Hyperlipidemia, unspecified; K21.9 Gastro-esophageal reflux disease without esophagitis; F41.8 Other specified anxiety disorders
CPT/HCPCS: 36415; 70450; 72125; 73590; 80053; 84484; 85025; 93005; 96360; 99284; A9270-GY

== ENCOUNTER 2018-10-29 08:05 | Emergency (ER) | payer MEDICARE ==
--- NOTE | 2018-10-29 08:10 | ERPHSYRPT ---
- History of Present Illness Time Seen by Provider: 10/29/18 08:10 Source: patient, family Physician History: 58 y/o white female presents soon after slipping and falling onto left ant knee. pt falls often. no head injury. no other complaints. Occurred: just prior to arrival, this morning Reason for Fall: slipped Injuries/Pain Location: lower extremity (left ant knee) Loss of Consciousness: no loss of consciousness Quality: aching, throbbing Severity of Pain-Max: moderate Severity of Pain-Current: mild Modifying Factors: Improves With: movement (hurts) Allergies/Adverse Reactions: Iodinated Contrast- Oral and IV Dye [Iodinated Contrast Media - IV Dye] Allergy (Severe, Verified 10/29/18 08:22) Shortness of Breath anaphylaxis Penicillins Allergy (Unknown, Verified 10/29/18 08:22) Rash prednisone Adverse Reaction (Unknown, Verified 10/29/18 08:22) Swelling on prednisone now but makes sick and irritable Home Medications: Alprazolam 1 mg [Xanax 1 mg] 1 mg PO TID PRN PRN 01/05/17 [History] Aspirin 81 gm Chew [Baby Aspirin 81 mg Chew] 81 mg PO DAILY 01/05/17 [ History] Atorvastatin Calcium [Lipitor] 80 mg PO HS 01/05/17 [History] Clopidogrel Bisulfate 75 mg [PLAVIX 75 MG Tablet] 75 mg PO DAILY 01/05/17 [History] Gabapentin 300 mg PO BID 01/05/17 [History] Metoprolol Succinate [Toprol Xl] 25 mg PO DAILY 01/05/17 [History] Spironolactone 25 mg [Aldactone 25 MG] 25 mg PO BID 01/05/17 [History] Torsemide [Demadex] 20 mg PO HS 01/05/17 [History] Torsemide [Demadex] 30 mg PO DAILY 01/05/17 [History] Duloxetine HCl 30 mg [Cymbalta 30 MG Capsule] 60 mg PO DAILY 06/30/18 [ History] Famotidine 20 mg [Pepcid 20 MG] 40 mg PO HS 06/30/18 [History] Metformin HCl Xr 500 mg [Glucophage XR 500 MG] 500 mg PO BID 06/30/18 [ History] PANTOPRAZOLE 40 mg Tablet [Protonix 40MG Tablet] 40 mg PO DAILY 06/30/18 [ History] Albuterol 2.5 mg/3 ml Neb [Proventil 2.5 mg/3 ml Neb] 2.5 mg IH Q4HPRN PRN 09/08/18 [History] Duloxetine HCl [Cymbalta] 60 mg PO DAILY 09/08/18 [History] Folic Acid 1 mg [Folate 1 mg] 1 mg PO DAILY 09/08/18 [History] [place]-3S/Dha/Epa/Fish Oil [Fish Oil [place]-3 Softgel] 1 each PO DAILY 09/08/18 [ History] Hx Tetanus, Diphtheria Vaccination/Date Given: Yes Hx Influenza Vaccination/Date Given: No Hx Pneumococcal Vaccination/Date Given: No - Review of Systems Constitutional: No Symptoms Eyes: No Symptoms Ears, Nose, & Throat: No Symptoms Respiratory: No Symptoms Cardiac: No Symptoms Abdominal/Gastrointestinal: No Symptoms Genitourinary Symptoms: No Symptoms Musculoskeletal: Fall, Injury Skin: No Symptoms Neurological: No Symptoms Psychological: No Symptoms Endocrine: No Symptoms Hematologic/Lymphatic: No Symptoms Immunological/Allergic: No Symptoms All Other Systems: Reviewed and Negative - Past Medical History Pertinent Past Medical History: Yes Neurological History: Seizures, Stroke ENT History: Other Cardiac History: Congestive Heart Failure, High Cholesterol, Hypertension, Other Respiratory History: Asthma, CHF, COPD Endocrine Medical History: No Pertinent History Musculoskeletal History: Degenerative Disk Disease GI Medical History: GERD History: Other Psycho-Social History: Anxiety, Depression Female Reproductive Disorders: No Pertinent History Other Medical History: Open heart surgery 2010, stent, ulcers in the L eye - Past Surgical History Past Surgical History: Yes Neuro Surgical History: No Pertinent History Cardiac: CABG, Cardiac Catheterization, Cardiac Stent, Other Respiratory: No Pertinent History Gastrointestinal: Appendectomy, Bowel Surgery, Cholecystectomy, Exploratory Laparoscopy Genitourinary: No Pertinent History Musculoskeletal: Other Female Surgical History: Section, Hysterectomy Other Surgical History: BOWEL RESECTIONx3 for adhesions. ppins and plate placed in foot and then removed. TRIPLE AAA REPAIR WITH CABG - Social History Smoking Status: Never smoker How long have you smoked: 0 Exposure to second hand smoke: No Drug Use: none Patient Lives Alone: No - Nursing Vital Signs Nursing Vital Signs: Initial Vital Signs Temperature 98.2 F 10/29/18 08:15 Pulse Rate 97 H 10/29/18 08:15 Respiratory Rate 18 10/29/18 08:15 Blood Pressure 95/69 10/29/18 08:15 O2 Sat by Pulse Oximetry 99 10/29/18 08:15 Pain Scale Pain Intensity 9 - Elliot Coma Score Best Eye Response ([place]): (4) open spontaneously Best Verbal Response ([place]): (5) oriented Best Motor Response ([place]): (6) obeys commands [place] Total: 15 - Physical Exam General Appearance: mild distress, alert, anxiety Head Injury: no evidence of injury Eye Exam: PERRL/EOMI, eyes nml inspection ENT Exam: airway nml Neck Exam: supple, trachea midline, full range of motion, normal alignment Respiratory/Chest Exam: No chest tenderness, No respiratory distress Gastrointestinal Exam: No tenderness Rectal Exam: not done Back Exam: normal inspection, normal range of motion, No CVA tenderness, No vertebral tenderness Extremity Exam: normal range of motion, weight bearing, tenderness (ant left knee.) Neurologic Exam: alert, oriented x 3, cooperative, 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 as tested Skin Exam: normal color, warm, dry O2 Delivery: Room Air - Course Nursing assessment & vital signs reviewed: Yes Ordered Tests: Active Orders 24 hr Category Date Time Status KNEE (3 VIEWS) Stat Exams 10/29/18 08:16 Taken Medication Summary Generic Name Dose Route Start Last Admin Trade Name Freq PRN Reason Stop Dose Admin Hydrocodone Bitart/Acetaminophen 1 tab 10/29/18 08:33 [place] 5/325 Mg PO 10/29/18 08:34 STAT ONE Ondansetron HCl 4 mg 10/29/18 08:35 Zofran Odt 4 Mg PO 10/29/18 08:36 STAT ONE - Progress Progress: unchanged Progress Note: 10/29/18 08:36 left knee xray-no acute fx or dislocation. pt states she can take norco. she has nausea and upset stomach. not a true allergy. Counseled pt/family regarding: diagnosis, need for follow-up, rad results - Departure Departure Disposition: Home Clinical Impression: Fall, Contusion Condition: Stable Critical Care Time: No Referrals: ROSALIE MARTINEZ [Primary Care Provider] - Additional Instructions: ice pack to left knee 3 times daily for 2 days. follow up with primary doctor for further management. use tylenol and ibuprofen for pain if not allergic
[2018-10-29] MEDS ORDERED: NORCO 5/325 MG PO ONE (08:33)
[2018-10-29] MEDS ORDERED: ZOFRAN ODT 4 MG PO ONE (08:35)
[2018-10-29] MEDS ORDERED: ZOFRAN ODT 4 MG ONE (08:39)
[2018-10-29] MEDS ORDERED: NORCO 5/325 MG ONE (08:40)
[2018-10-29 09:12] VITALS: BP 102/58; PULSE 68; O2SAT 98
--- NOTE | 2018-10-29 16:13 | XRAY ---
Indication: Pain following fall. Comparison: None 3 views of the left knee demonstrates minimal medial joint space narrowing/spurring and medial surgical clips. No other bony, articular, or soft tissue abnormalities.
== END 2018-10-29 09:10 | disposition home or self-care (01) ==
LOC: ED 08:05
DX: S80.02XA Contusion of left knee, initial encounter (principal); W01.0XXA Fall on same level from slipping, tripping and stumbling without subsequent striking against object, initial encounter
CPT/HCPCS: 73562; 99283; Q0162; A9270-GY

== ENCOUNTER 2019-12-30 09:06 | Observation (INO) | payer MEDICARE ==
[2019-12-30] MEDS ORDERED: MORPHINE SULFATE 4 MG INJ IV ONE (09:46)
[2019-12-30] MEDS ORDERED: Zofran 4 MG/2 ML VIAL IV ONE (09:46)
[2019-12-30] MEDS ORDERED: Sodium Chloride 0.9% 1000 ML 1,000 ML IV STA (09:49)
[2019-12-30] MEDS ORDERED: Zofran 4 MG/2 ML VIAL ONE (09:50)
[2019-12-30] MEDS ORDERED: MORPHINE SULFATE 4 MG INJ ONE (09:51)
[2019-12-30] MEDS ORDERED: Sodium Chloride 0.9% 1000 ML 1,000 ML ONE (09:51)
[2019-12-30 09:56] LABS: Absolute Neutrophil Ct (ANC) 9.89 (1.4-6.9); BASOPHIL % 0.2 % (0.0-0.4); Basophil (Absolute #) 0.02 (0-0.4); Eosinophil % 1.6 % (0.00-5.0); Eosinophil (Absolute #) 0.21 (0-0.5); Hematocrit 43.8 % (35-47); Hemoglobin 13.9 gm/dl (12.0-16.0); Lymphocyte (Absolute #) 1.85 (1.0-4.6); Lymphocytes % 14.4 % (24.0-44.0); Mean Corpuscular Hemoglobin 31.7 pg (26-32); Mean Corpuscular Hgb Concent. 31.7 g/dl (32-36); Mean Platelet Volume 12.4 fl (7.5-11.0); Monocyte (Absolute #) 0.89 (0.0-1.3); Monocytes % 6.9 % (0.0-12.0); Neutrophil % 76.9 % (36.0-66.0); Platelet Count 123 K/mm3 (150-450); Red Blood Count 4.38 M/mm3 (4.1-5.4); Red Cell Distribution Width 14.3 % (11.5-14.0); White Blood Count 12.9 K/mm3 (4.0-10.5)
--- NOTE | 2019-12-30 10:00 | ERPHSYRPT ---
- History of Present Illness Time Seen by Provider: 12/30/19 09:36 Historian: patient Exam Limitations: no limitations Patient Subjective Stated Complaint: pt was sent over from [facility] for flank pain that started yesterday with blood in urine this morning, and nausea Triage Nursing Assessment: pt alert arrived per wc, with mask on, holding abd , abd soft, moves all ext well. skin w/d/p Physician History: 59 years old female with history of coronary artery disease status post CABG/stenting, congestive heart failure, hypertension, hyperlipidemia, diabetes mellitus presented in the ER with chief complaint of lower abdominal pain with gradual onset since yesterday, mom moderate to severe intensity currently with radiation to the back, associated with urinary burning and increased frequency with some hesitancy and this morning started to have dysuria. Pain is aggravated with movements and palpation and no significant relieving factors. Patient reported associated nausea but no vomiting. Patient does have history of kidney stones in the past and symptoms seems somewhat similar to that. Denies any fever or chills. Timing/Duration: yesterday, gradual onset, worse Activities at Onset: rest Quality: sharpness Abdominal Pain Onset Location: RLQ, LLQ, suprapubic Pain Radiation: back Severity of Pain-Max: moderate Severity of Pain-Current: moderate Modifying Factors: Improves With: movement, palpation Associated Symptoms: back, nausea Previous symptoms: no prior history Allergies/Adverse Reactions: Iodinated Contrast Media [Iodinated Contrast Media - IV Dye] Allergy (Severe, Verified 12/30/19 09:21) Shortness of Breath anaphylaxis Penicillins Allergy (Unknown, Verified 12/30/19 09:21) Rash prednisone Adverse Reaction (Unknown, Verified 12/30/19 09:21) Swelling on prednisone now but makes sick and irritable Home Medications: Alprazolam 1 mg [Xanax 1 mg] 1 mg PO TID 01/05/17 [History] Aspirin 81 gm Chew [Baby Aspirin 81 mg Chew] 81 mg PO DAILY 01/05/17 [History] Atorvastatin Calcium [Lipitor] 80 mg PO HS 01/05/17 [History] Clopidogrel Bisulfate 75 mg [PLAVIX 75 MG Tablet] 75 mg PO DAILY 01/05/17 [History] Gabapentin 600 mg PO BID 01/05/17 [History] Metoprolol Succinate [Toprol Xl] 25 mg PO BID 01/05/17 [History] Spironolactone 25 mg [Aldactone 25 MG] 25 mg PO BID 01/05/17 [History] Torsemide [Demadex] 40 mg PO BID 01/05/17 [History] Famotidine 20 mg [Pepcid 20 MG] 40 mg PO HS 06/30/18 [History] Metformin HCl Xr 500 mg [Glucophage XR 500 MG] 1,000 mg PO BID 06/30/18 [History] PANTOPRAZOLE 40 mg Tablet [Protonix 40MG Tablet] 40 mg PO DAILY 06/30/18 [History] Albuterol 2.5 mg/3 ml Neb [Proventil 2.5 mg/3 ml Neb] 2.5 mg IH Q4HPRN PRN 09/08/18 [History] Duloxetine HCl [Cymbalta] 60 mg PO DAILY 09/08/18 [History] Folic Acid 1 mg [Folate 1 mg] 1 mg PO DAILY 09/08/18 [History] Murdock-3S/Dha/Epa/Fish Oil [Fish Oil [place]dock-3 Softgel] 1 each PO DAILY 09/08/18 [History] Hx Tetanus, Diphtheria Vaccination/Date Given: No Hx Influenza Vaccination/Date Given: Yes Hx Pneumococcal Vaccination/Date Given: Yes Immunizations Up to Date: Yes Travel Risk - International Travel Have you traveled outside of the country in past 3 weeks: No - Coronavirus Screening Are you exhibiting any of the following symptoms?: No Close contact with a COVID-19 positive Pt in past 14-21 Days: No - Review of Systems Constitutional: No Symptoms Eyes: No Symptoms Ears, Nose, & Throat: No Symptoms Respiratory: No Symptoms Cardiac: No Symptoms Abdominal/Gastrointestinal: Abdominal Pain, Nausea Genitourinary Symptoms: Dysuria, Frequency, Hematuria, Hesitancy, Flank Pain Musculoskeletal: No Symptoms Skin: No Symptoms Neurological: No Symptoms Psychological: No Symptoms Endocrine: No Symptoms Hematologic/Lymphatic: No Symptoms Immunological/Allergic: No Symptoms - Past Medical History Pertinent Past Medical History: Yes Neurological History: Seizures, Stroke ENT History: Other Cardiac History: Congestive Heart Failure, High Cholesterol, Hypertension, Other Respiratory History: Asthma, CHF, COPD Endocrine Medical History: Diabetes Type II Musculoskeletal History: Degenerative Disk Disease GI Medical History: GERD History: Other Psycho-Social History: Anxiety, Depression Female Reproductive Disorders: No Pertinent History Other Medical History: Open heart surgery 2010, stent, ulcers in the L eye, chronic hip pain - Past Surgical History Past Surgical History: Yes Neuro Surgical History: No Pertinent History Cardiac: CABG, Cardiac Catheterization, Cardiac Stent, Other Respiratory: No Pertinent History Gastrointestinal: Appendectomy, Bowel Surgery, Cholecystectomy, Exploratory La paroscopy Genitourinary: No Pertinent History Musculoskeletal: Other Female Surgical History: Section, Hysterectomy Other Surgical History: BOWEL RESECTIONx3 for adhesions. ppins and plate placed in foot and then removed. TRIPLE AAA REPAIR WITH CABG - Social History Smoking Status: Never smoker How long have you smoked: 0 Exposure to second hand smoke: No Drug Use: none Patient Lives Alone: No - Female History Hx Last Menstrual Period: post Hx Now: No - Nursing Vital Signs Nursing Vital Signs: Initial Vital Signs Temperature 99.1 F 12/30/19 09:16 Pulse Rate 94 H 12/30/19 09:16 Respiratory Rate 18 12/30/19 09:16 Blood Pressure 128/75 12/30/19 09:16 O2 Sat by Pulse Oximetry 96 12/30/19 09:16 Pain Scale Pain Intensity 4 - Physical Exam General Appearance: no apparent distress, alert Eye Exam: eyes nml inspection Ears, Nose, Throat Exam: normal ENT inspection, pharynx normal Neck Exam: normal inspection, supple, full range of motion Respiratory Exam: normal breath sounds, lungs clear, respiratory distress Cardiovascular Exam: regular rate/rhythm, normal heart sounds Gastrointestinal/Abdomen Exam: soft, tenderness (Her abdomen. No guarding or rebound tenderness.) Back Exam: normal inspection, normal range of motion, CVA tenderness Extremity Exam: normal inspection, normal range of motion Neurologic Exam: alert, oriented x 3, cooperative Skin Exam: normal color SpO2 Interpretation: normal SpO2: 96 O2 Delivery: Room Air - Course Nursing assessment & vital signs reviewed: Yes Ordered Tests: Active Orders 24 hr Category Date Time Status Bedrest with BRP/BSC ROUTINE Activity 12/30/19 16:04 Active Up With Assistance Q4H Activity 12/30/19 16:04 Active Accucheck ACHS Care 12/30/19 16:04 Active Code Status Order ROUTINE Care 12/30/19 16:04 Active Fall Protocol Q4H Care 12/30/19 16:04 Active IV Care Q6H Care 12/30/19 16:04 Active IV Insertion STAT Care 12/30/19 09:[address] in Observation ROUTINE Care 12/30/19 16:04 Active Telemetry q6h Care 12/30/19 16:04 Active Weight,Daily 0600 Care 12/30/19 16:04 Active Consistent Carbohydrate Diet 1800 Calorie Diet 12/30/19 Dinner Active ABDOMEN AND PELVIS W/0 CONTRAS [CT] Stat Exams 12/30/19 09:47 Taken CBC W DIFF AM.LAB Lab 12/31/19 04:00 Ordered CBC W DIFF Stat Lab 12/30/19 09:45 Completed CMP AM.LAB Lab 12/31/19 04:00 Ordered CMP Stat Lab 12/30/19 09:45 Completed CULTURE,URINE Stat Lab 12/30/19 12:11 Received LIPASE Stat Lab 12/30/19 09:45 Completed LIPASE Stat Lab 12/31/19 06:01 Ordered UA W/RFX UR CULTURE Stat Lab 12/30/19 12:11 Completed Transfer Order Routine Transfer 12/30/19 Completed Medication Summary Generic Name Dose Route Start Last Admin Trade Name Freq PRN Reason Stop Dose Admin Acetaminophen 650 mg 12/30/19 16:04 Tylenol 325 Mg PO 01/29/20 16:03 Q4H PRN PRN PAIN AND/OR FEVER Alprazolam 1 mg 12/30/19 22:00 Xanax 1 Mg PO 12/30/19 22:01 1XONLY ONE Aspirin 81 mg 12/30/19 18:14 12/30/19 18:17 Ecotrin 81 Mg PO 12/30/19 18:15 81 mg 1XONLY ONE Administration Clopidogrel Bisulfate 75 mg 12/30/19 18:00 12/30/19 18:10 Plavix 75 Mg Tablet PO 12/30/19 18:01 75 mg 1XONLY ONE Administration Duloxetine HCl 60 mg 12/30/19 18:00 12/30/19 18:10 Cymbalta 30 Mg Capsule PO 12/30/19 18:01 60 mg 1XONLY ONE Administration Famotidine 20 mg 12/30/19 22:00 Pepcid 20 Mg Vial IV 01/29/20 21:59 Q12HT LITO Folic Acid 1 mg 12/30/19 18:00 12/30/19 18:11 Folate 1 Mg PO 12/30/19 18:01 1 mg 1XONLY ONE Administration Gabapentin 600 mg 12/30/19 22:00 Neurontin 300 Mg PO 12/30/19 22:01 1XONLY ONE Sodium Chloride 1,000 mls @ 100 mls/hr 12/30/19 16:04 12/30/19 16:12 Sodium Chloride 0.9% 1000 Ml IV 01/29/20 16:03 100 mls/hr .Q10H LITO Administration Ceftriaxone Sodium/Dextrose 1 g in 50 mls @ 100 mls/hr 12/31/19 10:00 Rocephin 1 Gm-D5w 50 Ml Bag IV 01/30/20 09:59 Q24H10 LITO Insulin Human Lispro 0 unit 12/30/19 16:04 Humalog SQ 01/29/20 16:03 UD PRN HYPERGLYCEMIA Metformin HCl 1,000 mg 12/30/19 18:00 12/30/19 18:11 Glucophage Xr 500 Mg PO 12/30/19 18:01 1,000 mg 1XONLY ONE Administration Metoprolol Succinate 25 mg 12/30/19 22:00 Toprol-Xl 25mg Tablets PO 12/30/19 22:01 1XONLY ONE Morphine Sulfate 2 mg 12/30/19 16:04 12/30/19 16:20 Morphine Sulfate 2 Mg Inj IV 01/04/20 16:03 2 mg Q4H PRN PRN Administration PAIN Ondansetron HCl 4 mg 12/30/19 16:04 Zofran 4 Mg/2 Ml Vial IV 01/29/20 16:03 Q6H PRN PRN NAUSEA/VOMITING Pantoprazole Sodium 40 mg 12/30/19 18:00 12/30/19 18:10 Protonix 40mg Tablet PO 12/30/19 18:01 40 mg 1XONLY ONE Administration Simvastatin 80 mg 12/30/19 22:00 Zocor 20mg PO 12/30/19 22:01 HS ONE Spironolactone 25 mg 12/30/19 22:00 Aldactone 25 Mg PO 12/30/19 22:01 1XONLY ONE Torsemide 40 mg 12/30/19 22:00 Demadex 20 Mg PO 12/30/19 22:01 1XONLY ONE Discontinued Medications Generic Name Dose Route Start Last Admin Trade Name Michelle PRN Reason Stop Dose Admin Aspirin 81 mg 12/30/19 18:00 12/30/19 18:16 Baby Aspirin 81 Mg Chew PO 12/30/19 18:01 Not Given 1XONLY ONE Aspirin Confirm 12/30/19 18:01 Ecotrin 81 Mg Administered 12/30/19 18:02 Dose 81 mg PO .STK-MED ONE Sodium Chloride 1,000 mls @ 499 mls/hr 12/30/19 09:49 12/30/19 12:09 Sodium Chloride 0.9% 1000 Ml IV 12/30/19 11:49 Infused .Q2H1M STA Infusion Sodium Chloride Confirm 12/30/19 09:51 Sodium Chloride 0.9% 1000 Ml Administered 12/30/19 09:52 Dose 1,000 mls @ ud .ROUTE .STK-MED ONE Ceftriaxone Sodium/Dextrose 1 g in 50 mls @ 100 mls/hr 12/30/19 12:59 12/30/19 15:23 Rocephin 1 Gm-D5w 50 Ml Bag IV 12/30/19 13:28 Infused STAT STA Infusion Ceftriaxone Sodium/Dextrose Confirm 12/30/19 13:02 Rocephin 1 Gm-D5w 50 Ml Bag Administered 12/30/19 13:03 Dose 1 g in 50 mls @ ud IV .STK-MED ONE Morphine Sulfate 4 mg 12/30/19 09:46 12/30/19 09:55 Morphine Sulfate 4 Mg Inj IV 12/30/19 09:47 4 mg STAT ONE Administration Morphine Sulfate Confirm 12/30/19 09:51 Morphine Sulfate 4 Mg Inj Administered 12/30/19 09:52 Dose 4 mg .ROUTE .STK-MED ONE Ondansetron HCl 4 mg 12/30/19 09:46 12/30/19 09:55 Zofran 4 Mg/2 Ml Vial IV 12/30/19 09:47 4 mg STAT ONE Administration Ondansetron HCl Confirm 12/30/19 09:50 Zofran 4 Mg/2 Ml Vial Administered 12/30/19 09:51 Dose 4 mg .ROUTE .STK-MED ONE Lab/Rad Data: Laboratory Result Diagrams 12/30/19 09:45 12/30/19 09:45 Laboratory Results 12/30/19 12/30/19 12/30/19 Range/Units 12:11 09:45 09:45 WBC 12.9 H (4.0-10.5) K/mm3 RBC 4.38 (4.1-5.4) M/mm3 Hgb 13.9 (12.0-16.0) gm/dl Hct 43.8 (35-47) % MCV 100.0 (78-100) fl MCH 31.7 (26-32) pg MCHC 31.7 L (32-36) g/dl RDW 14.3 H (11.5-14.0) % Plt Count 123 L (150-450) K/mm3 MPV 12.4 H (7.5-11.0) fl Gran % 76.9 H (36.0-66.0) % Eos # (Auto) 0.21 (0-0.5) Absolute Lymphs (auto) 1.85 (1.0-4.6) Absolute Monos (auto) 0.89 (0.0-1.3) Lymphocytes % 14.4 L (24.0-44.0) % Monocytes % 6.9 (0.0-12.0) % Eosinophils % 1.6 (0.00-5.0) % Basophils % 0.2 (0.0-0.4) % Absolute Granulocytes 9.89 H (1.4-6.9) Basophils # 0.02 (0-0.4) Sodium 139 (137-145) mmol/L Potassium 3.9 (3.5-5.1) mmol/L Chloride 94 L (98-107) mmol/L Carbon Dioxide 28 (22-30) mmol/L Anion Gap 21.2 H (5-15) MEQ/L BUN 28 H (7-17) mg/dL Creatinine 0.99 (0.52-1.04) mg/dL Estimated GFR > 60.0 ML/MIN Glucose 136 H (74-106) mg/dL Calcium 9.6 (8.4-10.2) mg/dL Total Bilirubin 0.90 (0.2-1.3) mg/dL AST 34 (14-36) U/L ALT 33 (0-35) U/L Alkaline Phosphatase 84 (38-126) U/L Serum Total Protein 9.0 H (6.3-8.2) g/dL Albumin 5.1 H (3.5-5.0) g/dL Lipase 799 H (23-300) U/L Urine Color RED (YELLOW) Urine Appearance CLOUDY (CLEAR) Urine pH 5.0 (5-6) Ur Specific [place] 1.013 (1.005-1.025) Urine Protein 100 (Negative) Urine Ketones NEGATIVE (NEGATIVE) Urine Blood LARGE (0-5) Arnel/ul Urine Nitrite NEGATIVE (NEGATIVE) Urine Bilirubin NEGATIVE (NEGATIVE) Urine Urobilinogen NEGATIVE (0-1) mg/dL Ur Leukocyte Esterase MODERATE (NEGATIVE) Urine WBC (Auto) 26-50 (0-5) /HPF Urine RBC (Auto) >101 (0-2) /HPF U Epithel Cells (Auto) NONE (FEW) /HPF Urine Bacteria (Auto) MANY (NEGATIVE) /HPF Urine Culture Reflexed YES (NO) Urine Glucose NEGATIVE (NEGATIVE) mg/dL - Progress Progress: improved, pain not gone completely, re-examined Progress Note: 12/30/19 14:51 59 years old is evaluated for lower abdominal pain with difficulty urination and hematuria. She is given IV fluids and pain medication, on reevaluation her pain is better but still having difficulty with patient was able to urinate later on with gross hematuria but no rina blood. After urination which her pain is getting worse. She has a white count of 12.9, mildly elevated BUN and lipase but she has no acute findings on CT for acute pancreatitis. She has a nephrolithiasis but no ureterolithiasis are obstructive uropathy. She does have UTI. I believe patient is having either recently passed stone or she is having hemorrhagic cystitis. I have given her a dose of Rocephin in here. With her recurrent pain and difficulty urination, patient does not feel comfortable going home, discussed with Dr. Rudolph and patient is admitted for observation. Discussed with : Veronica Will see patient in: hospital (observation) Counseled pt/family regarding: lab results, diagnosis, rad results - Departure Departure Disposition: Observation Clinical Impression: Acute hemorrhagic cystitis, Elevated lipase, Dehydration Condition: Stable Critical Care Time: No
[2019-12-30 10:09] LABS: ALBUMIN 5.1 g/dL (3.5-5.0); ALKALINE PHOSPHATASE 84 U/L (38-126); ANION GAP 21.2 MEQ/L (5-15); BLOOD UREA NITROGEN 28 mg/dL (7-17); CHLORIDE 94 mmol/L (98-107); Calcium 9.6 mg/dL (8.4-10.2); Carbon Dioxide 28 mmol/L (22-30); Creatinine 1 0.99 mg/dL (0.52-1.04); Glucose 136 mg/dL (74-106); LIPASE 799 U/L (23-300); Potassium 3.9 mmol/L (3.5-5.1); SGOT/AST 34 U/L (14-36); SGPT/ALT 33 U/L (0-35); SODIUM 139 mmol/L (137-145)
[2019-12-30 12:36] LABS: Appearance CLOUDY (CLEAR); Bacteria MANY /HPF (NEGATIVE); Bilirubin NEGATIVE (NEGATIVE); Blood LARGE Ery/ul (0-5); Glucose NEGATIVE (NEGATIVE); Ketones NEGATIVE (NEGATIVE); Leukocyte Esterase MODERATE (NEGATIVE); Nitrite NEGATIVE (NEGATIVE); Protein,Urine Dip 100 (Negative); RBC >101 /HPF (0-2); Specific Gravity 1.013 (1.005-1.025); Urobilinogen NEGATIVE mg/dL (0-1); WBC 26-50 /HPF (0-5)
[2019-12-30] MEDS ORDERED: ROCEPHIN 1 Gm-D5w 50 ml Bag** 1 G/50 ML IVPB IV STA (12:59)
[2019-12-30] MEDS ORDERED: ROCEPHIN 1 Gm-D5w 50 ml Bag** 1 G/50 ML IVPB IV ONE (13:02)
[2019-12-30] MEDS ORDERED: HUMALOG SQ PRN (16:04)
[2019-12-30] MEDS ORDERED: MORPHINE SULFATE 2 MG INJ IV PRN (16:04)
[2019-12-30] MEDS ORDERED: Zofran 4 MG/2 ML VIAL IV PRN (16:04)
[2019-12-30] MEDS ORDERED: MORPHINE SULFATE 2 MG INJ ONE (16:09)
[2019-12-30] MEDS: Sodium Chloride 0.9% 1000 ML 1,000 ML IV SCH (16:12)
[2019-12-30] MEDS ORDERED: BABY ASPIRIN 81 MG CHEW PO ONE (18:00)
[2019-12-30] MEDS ORDERED: PLAVIX 75 MG Tablet PO ONE (18:00)
[2019-12-30] MEDS ORDERED: Cymbalta 30 MG Capsule PO ONE (18:00)
[2019-12-30] MEDS ORDERED: Protonix 40MG Tablet PO ONE (18:00)
[2019-12-30] MEDS ORDERED: FOLATE 1 MG PO ONE (18:00)
[2019-12-30] MEDS ORDERED: Glucophage XR 500 MG PO ONE (18:00)
[2019-12-30] MEDS ORDERED: ECOTRIN 81 MG PO ONE ×2 (18:01→18:14)
[2019-12-30] MEDS: MORPHINE SULFATE 10 MG/ML IV PRN (21:05)
[2019-12-30] MEDS: Pepcid 20 MG VIAL IV SCH (21:05)
--- NOTE | 2019-12-30 21:25 | XRAY ---
Indication: Abdomen and flank pain. Multiple contiguous axial images obtained through the abdomen and pelvis without contrast as ordered.. Comparison: February 26, 2016. Lung bases clear. Heart is not enlarged. Noncontrasted stomach and bowel loops remain nonobstructed. Again previous appendectomy, hysterectomy, and cholecystectomy. No free fluid/air. Stable nonobstructing punctate right renal calculus. Remaining liver, pancreas, spleen, adrenal glands, kidneys, ureters, and bladder appear unremarkable for noncontrast exam. Minimal aortic calcifications without AAA. Osseous structures intact. Impression: 1. Stable nonobstructing right renal microcalculus. 2. Remaining CT abdomen/pelvis without contrast exam is negative. Comment: Preliminary interpretation was made by [facility]. No critical discrepancy.
[2019-12-30] MEDS ORDERED: ZOCOR 20MG PO ONE (22:00)
[2019-12-30] MEDS ORDERED: NEURONTIN 300 MG PO ONE (22:00)
[2019-12-30] MEDS ORDERED: Aldactone 25 MG PO ONE (22:00)
[2019-12-30] MEDS ORDERED: DEMADEX 20 MG PO ONE (22:00)
[2019-12-30] MEDS ORDERED: Toprol-Xl 25MG Tablets PO ONE (22:00)
[2019-12-30] MEDS ORDERED: XANAX 1 MG PO ONE (22:00)
[2019-12-31] MEDS: Sodium Chloride 0.9% 1000 ML 1,000 ML IV SCH ×3 (01:58→23:34)
[2019-12-31] MEDS: MORPHINE SULFATE 10 MG/ML IV PRN ×4 (02:02→20:56)
[2019-12-31] MEDS ORDERED: TYLENOL 325 MG ONE (04:28)
[2019-12-31] MEDS ORDERED: Zofran 4 MG/2 ML VIAL ONE (04:28)
[2019-12-31] MEDS: TYLENOL 325 MG PO PRN ×2 (04:31→18:45)
[2019-12-31 06:13] LABS: Absolute Neutrophil Ct (ANC) 10.01 (1.4-6.9); BASOPHIL % 0.2 % (0.0-0.4); Basophil (Absolute #) 0.02 (0-0.4); Eosinophil % 2.1 % (0.00-5.0); Eosinophil (Absolute #) 0.28 (0-0.5); Hematocrit 40.6 % (35-47); Hemoglobin 12.3 gm/dl (12.0-16.0); Lymphocyte (Absolute #) 1.97 (1.0-4.6); Mean Cell Volume 102.5 fl (78-100); Mean Corpuscular Hemoglobin 31.1 pg (26-32); Mean Corpuscular Hgb Concent. 30.3 g/dl (32-36); Monocyte (Absolute #) 0.86 (0.0-1.3); Monocytes % 6.5 % (0.0-12.0); Neutrophil % 76.2 % (36.0-66.0); Platelet Count 276 K/mm3 (150-450); Red Blood Count 3.96 M/mm3 (4.1-5.4); Red Cell Distribution Width 14.1 % (11.5-14.0); White Blood Count 13.1 K/mm3 (4.0-10.5)
[2019-12-31 06:29] LABS: ALBUMIN 4.6 g/dL (3.5-5.0); ALKALINE PHOSPHATASE 72 U/L (38-126); ANION GAP 16.9 MEQ/L (5-15); BLOOD UREA NITROGEN 20 mg/dL (7-17); CHLORIDE 95 mmol/L (98-107); Calcium 7.8 mg/dL (8.4-10.2); Carbon Dioxide 31 mmol/L (22-30); Creatinine 1 0.88 mg/dL (0.52-1.04); Glucose 142 mg/dL (74-106); Potassium 3.7 mmol/L (3.5-5.1); SGOT/AST 27 U/L (14-36); SGPT/ALT 27 U/L (0-35); SODIUM 140 mmol/L (137-145); Total Protein 8.2 g/dL (6.3-8.2)
[2019-12-31] MEDS ORDERED: PROVENTIL 2.5 MG/3 ML NEB IH PRN (07:49)
[2019-12-31] MEDS: Pepcid 20 MG VIAL IV SCH ×2 (09:36→20:56)
[2019-12-31] MEDS: NEURONTIN 300 MG PO SCH ×2 (09:37→20:56)
[2019-12-31] MEDS: Protonix 40MG Tablet PO SCH (09:37)
[2019-12-31] MEDS: ECOTRIN 81 MG PO SCH (09:37)
[2019-12-31] MEDS: Toprol-Xl 25MG Tablets PO SCH ×2 (09:37→20:57)
[2019-12-31] MEDS: XANAX 1 MG PO SCH ×3 (09:37→20:56)
[2019-12-31] MEDS: Aldactone 25 MG PO SCH ×2 (09:37→20:56)
[2019-12-31] MEDS: FOLATE 1 MG PO SCH (09:37)
[2019-12-31] MEDS: PLAVIX 75 MG Tablet PO SCH (09:38)
[2019-12-31] MEDS: Cymbalta 30 MG Capsule PO SCH (09:38)
[2019-12-31] MEDS ORDERED: TORSEMIDE 40 MG PO SCH (10:00)
[2019-12-31] MEDS ORDERED: NON-FORMULARY ITEM (Duloxetine Hcl [Cymbalta] 60 MG) PO SCH (10:00)
[2019-12-31] MEDS ORDERED: DEMADEX 20 MG PO SCH (10:00)
[2019-12-31] MEDS ORDERED: ROCEPHIN 1 Gm-D5w 50 ml Bag** 1 G/50 ML IVPB IV SCH (10:00)
[2019-12-31] MEDS: Glucophage XR 500 MG PO SCH ×2 (10:11→16:37)
--- NOTE | 2019-12-31 15:58 | PCM.HP ---
History of Present Illness - Chief Complaint Chief Complaint: HEMORRHAGIC CYSTITIS History of Present Illness: is a 59 year old female pt of Dr. Arzola [facility] hx CAD (had CABG), CHF, HTN, hyperlipidemia, diabetes mellitus, and hx aneurism who was admitted through ER with hemorrhagic cystitis, elevated lipase, and dehydration. She complains to me about a foul smell in her urine and hesitancy for the past 1 mo. Then last week she started having lower abd pain that radiated to her back, along with dysuria, frequency, and continues hesitancy. Was nauseated, no vomiting. No fever/chills. Does have hx nephrolithiasis. Had some diarrhea. Her urine was quite bloody initially. She was started on IV rocephin. Preliminary culture shows gram neg rods. CT abd/pelvis without contrast showed stable R renal micro calcification. Lipase initially was 799; this morning is 805. UA with lg amount blood, 26-50 WBC. She is on 2 diuretics; one was held initially and the second (demadex) has been decreased today (form 40mg po BID to 20mg po BID). Today she is feeling better than at admission, but still having hesitancy and dysuria. L flank pain 8/10; lower abd pain currently gone, but when she has to urinate it gets to 10/10. No nausea currently. - Review of Systems Respiratory: Cough (x 3 mo; COVID neg x 2.) Cardiac: Chest Pain (ache with the abdominal pain) Abdominal/Gastrointestinal: Abdominal Pain, Nausea, Diarrhea Genitourinary Symptoms: Dysuria, Frequency, Hematuria, Hesitancy, Flank Pain All Other Systems: Reviewed and Negative Medications & Allergies Home Medications: Home Medication List Alprazolam 1 mg [Xanax 1 mg] 1 mg PO TID 01/05/17 [History Confirmed 12/30/19] Aspirin 81 gm Chew [Baby Aspirin 81 mg Chew] 81 mg PO DAILY 01/05/17 [History Confirmed 12/30/19] Atorvastatin Calcium [Lipitor] 80 mg PO HS 01/05/17 [History Confirmed 12/30/19] Clopidogrel Bisulfate 75 mg [PLAVIX 75 MG Tablet] 75 mg PO DAILY 01/05/17 [History Confirmed 12/30/19] Gabapentin 600 mg PO BID 01/05/17 [History Confirmed 12/30/19] Metoprolol Succinate [Toprol Xl] 25 mg PO BID 01/05/17 [History Confirmed 12/30/19] Spironolactone 25 mg [Aldactone 25 MG] 25 mg PO BID 01/05/17 [History Confirmed 12/30/19] Torsemide [Demadex] 40 mg PO BID 01/05/17 [History Confirmed 12/30/19] Famotidine 20 mg [Pepcid 20 MG] 40 mg PO HS 06/30/18 [History Confirmed 12/30/19] Metformin HCl Xr 500 mg [Glucophage XR 500 MG] 1,000 mg PO BID 06/30/18 [History Confirmed 12/30/19] PANTOPRAZOLE 40 mg Tablet [Protonix 40MG Tablet] 40 mg PO DAILY 06/30/18 [History Confirmed 12/30/19] Albuterol 2.5 mg/3 ml Neb [Proventil 2.5 mg/3 ml Neb] 2.5 mg IH Q4HPRN PRN 09/08/18 [History Confirmed 12/30/19] Duloxetine HCl [Cymbalta] 60 mg PO DAILY 09/08/18 [History Confirmed 12/30/19] Folic Acid 1 mg [Folate 1 mg] 1 mg PO DAILY 09/08/18 [History Confirmed 12/30/19] [place]-3S/Dha/Epa/Fish Oil [Fish Oil [place]-3 Softgel] 1 each PO DAILY 09/08/18 [History Confirmed 12/30/19] Allergies/Adverse Reactions: Allergies Allergy/AdvReac Type Severity Reaction Status Date / Time Iodinated Contrast Media Allergy Severe Shortness Verified 12/30/19 09:21 [Iodinated Contrast Media - of Breath IV Dye] Penicillins Allergy Unknown Rash Verified 12/30/19 09:21 prednisone AdvReac Unknown Swelling Verified 12/30/19 09:21 - Past Medical History Past Medical History: Yes Neurological History: Seizures, Stroke ENT History: Other Cardiac History: Congestive Heart Failure, High Cholesterol, Hypertension, Other Respiratory History: Asthma, CHF, COPD Endocrine Medical History: Diabetes Type II Musculoskelatal History: Degenerative Disk Disease GI Medical History: GERD History: Other Pyscho-Social History: Anxiety, Depression Reproductive Disorders: No Pertinent History Comment: Open heart surgery 2010, stent, ulcers in the L eye, chronic hip pain - Female History Hx Last Menstrual Period: post Are you now?: No - Past Surgical History Past Surgical History: Yes Neuro Surgical History: No Pertinent History Cardiac History: CABG, Cardiac Catheterization, Cardiac Stent, Other Respiratory Surgery: No Pertinent History GI Surgical History: Appendectomy, Bowel Surgery, Cholecystectomy, Exploratory Laparoscopy Genitourinary Surgical Hx: No Pertinent History Musculskeletal Surgical Hx: Other Female Surgical History: Section, Hysterectomy Other Surgical History: BOWEL RESECTIONx3 for adhesions. ppins and plate placed in foot and then removed. TRIPLE AAA REPAIR WITH CABG - Social History Smoking Status: Never smoker How long have you smoked: 0 Exposure to second hand smoke: No Alcohol: None Drug Use: none - Physical Exam Vital Signs: Vital Signs - 24 hr Temp Pulse Resp BP Pulse Ox 12/31/19 12:33 87 18 97 12/31/19 12:00 98.3 F 86 26 H 125/67 97 12/31/19 08:49 97.9 F 73 16 113/68 96 12/31/19 08:00 97.9 F 73 16 113/68 96 12/31/19 07:14 97 12/31/19 04:00 98.1 F 84 16 114/73 98 12/30/19 23:32 98.0 F 82 17 97/54 95 12/30/19 23:02 97 12/30/19 20:24 96 12/30/19 19:42 98.2 F 92 H 16 118/57 96 12/30/19 16:32 98.6 F 86 18 120/68 95 General Appearance: no apparent distress, obese Neurologic Exam: alert, oriented x 3, cooperative Eye Exam: eyes nml inspection Ears, Nose, Throat Exam: moist mucous membranes Neck Exam: normal inspection Respiratory Exam: normal breath sounds, lungs clear, No crackles/rales, No rhonchi, No wheezing Cardiovascular Exam: regular rate/rhythm, normal heart sounds, No murmur Gastrointestinal/Abdomen Exam: soft, normal bowel sounds, tenderness (lower abd throughout) Back Exam: CVA tenderness (L>R) Extremity Exam: normal inspection, No pedal edema, No swelling Skin Exam: normal color, warm, dry, No rash Results - Labs Lab/Micro Results: Accuchecks Date 12/31/19 Date 12/31/19 Date 12/30/19 Date 12/30/19 Time 11:30 Time 07:30 Time 22:00 Time 16:30 Accucheck Value: 113 Accucheck Value: 132 Accucheck Value: 91 Accucheck Value: 102 Lab Results-Last 24 Hours 12/31/19 12/31/19 12/31/19 Range/Units 05:00 05:50 05:50 WBC 13.1 H (4.0-10.5) K/mm3 RBC 3.96 L (4.1-5.4) M/mm3 Hgb 12.3 (12.0-16.0) gm/dl Hct 40.6 (35-47) % MCV 102.5 H (78-100) fl MCH 31.1 (26-32) pg MCHC 30.3 L (32-36) g/dl RDW 14.1 H (11.5-14.0) % Plt Count 276 D (150-450) K/mm3 MPV 11.0 (7.5-11.0) fl Gran % 76.2 H (36.0-66.0) % Eos # (Auto) 0.28 (0-0.5) Absolute Lymphs (auto) 1.97 (1.0-4.6) Absolute Monos (auto) 0.86 (0.0-1.3) Lymphocytes % 15.0 L (24.0-44.0) % Monocytes % 6.5 (0.0-12.0) % Eosinophils % 2.1 (0.00-5.0) % Basophils % 0.2 (0.0-0.4) % Absolute Granulocytes 10.01 H (1.4-6.9) Basophils # 0.02 (0-0.4) Sodium 140 (137-145) mmol/L Potassium 3.7 (3.5-5.1) mmol/L Chloride 95 L (98-107) mmol/L Carbon Dioxide 31 H (22-30) mmol/L Anion Gap 16.9 H (5-15) MEQ/L BUN 20 H (7-17) mg/dL Creatinine 0.88 (0.52-1.04) mg/dL Estimated GFR > 60.0 ML/MIN Glucose 142 H (74-106) mg/dL Hemoglobin A1c 6.32 H (4.5-6.0) % Calcium 7.8 L D (8.4-10.2) mg/dL Total Bilirubin 0.70 (0.2-1.3) mg/dL AST 27 (14-36) U/L ALT 27 (0-35) U/L Alkaline Phosphatase 72 (38-126) U/L Serum Total Protein 8.2 (6.3-8.2) g/dL Albumin 4.6 (3.5-5.0) g/dL Lipase (23-300) U/L 12/31/19 Range/Units 05:50 WBC (4.0-10.5) K/mm3 RBC (4.1-5.4) M/mm3 Hgb (12.0-16.0) gm/dl Hct (35-47) % MCV (78-100) fl MCH (26-32) pg MCHC (32-36) g/dl RDW (11.5-14.0) % Plt Count (150-450) K/mm3 MPV (7.5-11.0) fl Gran % (36.0-66.0) % Eos # (Auto) (0-0.5) Absolute Lymphs (auto) (1.0-4.6) Absolute Monos (auto) (0.0-1.3) Lymphocytes % (24.0-44.0) % Monocytes % (0.0-12.0) % Eosinophils % (0.00-5.0) % Basophils % (0.0-0.4) % Absolute Granulocytes (1.4-6.9) Basophils # (0-0.4) Sodium (137-145) mmol/L Potassium (3.5-5.1) mmol/L Chloride (98-107) mmol/L Carbon Dioxide (22-30) mmol/L Anion Gap (5-15) MEQ/L BUN (7-17) mg/dL Creatinine (0.52-1.04) mg/dL Estimated GFR ML/MIN Glucose (74-106) mg/dL Hemoglobin A1c (4.5-6.0) % Calcium (8.4-10.2) mg/dL Total Bilirubin (0.2-1.3) mg/dL AST (14-36) U/L ALT (0-35) U/L Alkaline Phosphatase (38-126) U/L Serum Total Protein (6.3-8.2) g/dL Albumin (3.5-5.0) g/dL Lipase 805 H (23-300) U/L Microbiology 12/30/19 12:11 Urine Culture - Preliminary Urine, Catheterized GRAM NEGATIVE ID AND SENSITIVITY PENDING Accuchecks Date 12/31/19 Date 12/31/19 Date 12/30/19 Date 12/30/19 Time 11:30 Time 07:30 Time 22:00 Time 16:30 Accucheck Value: 113 Accucheck Value: 132 Accucheck Value: 91 Accucheck Value: 102 - Radiology Impressions Radiology Exams & Impressions: Radiology Procedures Category Date Time Status ABDOMEN AND PELVIS W/0 CONTRAS [CT] Stat Exams 12/30/19 09:47 Completed - Other Procedures and Tests Respiratory Therapy 12/30/19 22:22 Oxygen Nasal Cannula 2 lpm 12/31/19 12:32 Respiratory Therapy Assessment DAILY Assessment/Plan (1) Acute hemorrhagic cystitis Current Visit: Yes Status: Acute Assessment & Plan: UCx + for GNR. On rocephin. She is feeling better. Final culture results should be in tomorrow. Code(s): N30.01 - ACUTE CYSTITIS WITH HEMATURIA (2) Elevated lipase Current Visit: Yes Status: Acute Assessment & Plan: Decreased her demadex in an effort to improve her lipase in the morning. 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
[2019-12-31] MEDS: ZOCOR 20MG PO SCH (20:57)
[2019-12-31] MEDS: DEMADEX 20 MG PO SCH (20:58)
[2019-12-31] MEDS ORDERED: NON-FORMULARY ITEM (Atorvastatin Calcium [Lipitor] 80 MG) PO SCH (22:00)
[2020-01-01] MEDS: MORPHINE SULFATE 10 MG/ML IV PRN (01:28)
[2020-01-01 05:05] LABS: Hematocrit 37.4 % (35-47); Hemoglobin 11.3 gm/dl (12.0-16.0); Mean Cell Volume 102.7 fl (78-100); Mean Corpuscular Hgb Concent. 30.2 g/dl (32-36); Mean Platelet Volume 10.8 fl (7.5-11.0); Platelet Count 288 K/mm3 (150-450); Red Blood Count 3.64 M/mm3 (4.1-5.4); Red Cell Distribution Width 14.4 % (11.5-14.0); White Blood Count 11.1 K/mm3 (4.0-10.5)
[2020-01-01 05:19] LABS: ALBUMIN 4.6 g/dL (3.5-5.0); ALKALINE PHOSPHATASE 73 U/L (38-126); ANION GAP 17.8 MEQ/L (5-15); BLOOD UREA NITROGEN 15 mg/dL (7-17); CHLORIDE 95 mmol/L (98-107); Carbon Dioxide 30 mmol/L (22-30); Creatinine 1 0.95 mg/dL (0.52-1.04); Glucose 155 mg/dL (74-106); LIPASE 466 U/L (23-300); SGOT/AST 23 U/L (14-36); SGPT/ALT 25 U/L (0-35); SODIUM 139 mmol/L (137-145); Total Protein 8.2 g/dL (6.3-8.2)
[2020-01-01] MEDS: Glucophage XR 500 MG PO SCH ×2 (07:48→16:31)
[2020-01-01] MEDS: Merrem 1 GM 1 G in Sodium Chloride 100ML MINI-BAG PLUS 100 ML IV SCH ×3 (07:48→21:53)
[2020-01-01] MEDS ORDERED: Merrem 1 GM 1 G in Sodium Chloride 100ML MINI-BAG PLUS 100 ML IV SCH (08:00)
[2020-01-01] MEDS ORDERED: NORCO 5/325 MG PO PRN (08:10)
[2020-01-01] MEDS: DEMADEX 20 MG PO SCH ×2 (09:08→21:48)
[2020-01-01] MEDS: Cymbalta 30 MG Capsule PO SCH (09:08)
[2020-01-01] MEDS: NEURONTIN 300 MG PO SCH ×2 (09:08→21:48)
[2020-01-01] MEDS: Augmentin 875-125 Tablet PO SCH ×2 (09:08→21:51)
[2020-01-01] MEDS: Pepcid 20 MG VIAL IV SCH ×2 (09:09→21:49)
[2020-01-01] MEDS: XANAX 1 MG PO SCH ×3 (09:09→21:48)
[2020-01-01] MEDS: Toprol-Xl 25MG Tablets PO SCH ×2 (09:09→22:26)
[2020-01-01] MEDS: Aldactone 25 MG PO SCH ×2 (09:09→21:50)
[2020-01-01] MEDS: PLAVIX 75 MG Tablet PO SCH (09:09)
[2020-01-01] MEDS: Protonix 40MG Tablet PO SCH (09:09)
[2020-01-01] MEDS: ECOTRIN 81 MG PO SCH (09:10)
[2020-01-01] MEDS: FOLATE 1 MG PO SCH (09:10)
[2020-01-01 09:36] LABS: Monocytes % 7.8 % (0.0-12.0); Neutrophil % 69.2 % (36.0-66.0)
[2020-01-01 09:37] LABS: Absolute Neutrophil Ct (ANC) 7.41 (1.4-6.9); BASOPHIL % 0.1 % (0.0-0.4); Basophil (Absolute #) 0.01 (0-0.4); Eosinophil % 2.9 % (0.00-5.0); Eosinophil (Absolute #) 0.31 (0-0.5); Lymphocyte (Absolute #) 2.14 (1.0-4.6); Monocyte (Absolute #) 0.83 (0.0-1.3)
[2020-01-01] MEDS: Sodium Chloride 0.9% 1000 ML 1,000 ML IV SCH ×2 (10:50→22:00)
[2020-01-01] MEDS: TYLENOL 325 MG PO PRN (16:31)
[2020-01-01] MEDS ORDERED: Sodium Chloride 100ML MINI-BAG PLUS 0 ML IV ONE (20:49)
[2020-01-01] MEDS: ZOCOR 20MG PO SCH (21:48)
[2020-01-02 04:41] LABS: Absolute Neutrophil Ct (ANC) 5.31 (1.4-6.9); BASOPHIL % 0.2 % (0.0-0.4); Basophil (Absolute #) 0.02 (0-0.4); Eosinophil % 3.4 % (0.00-5.0); Eosinophil (Absolute #) 0.29 (0-0.5); Hematocrit 35.7 % (35-47); Hemoglobin 10.7 gm/dl (12.0-16.0); Lymphocyte (Absolute #) 2.12 (1.0-4.6); Lymphocytes % 24.7 % (24.0-44.0); Mean Cell Volume 103.8 fl (78-100); Mean Corpuscular Hemoglobin 31.1 pg (26-32); Mean Platelet Volume 10.7 fl (7.5-11.0); Monocyte (Absolute #) 0.83 (0.0-1.3); Monocytes % 9.7 % (0.0-12.0); Platelet Count 230 K/mm3 (150-450); Red Blood Count 3.44 M/mm3 (4.1-5.4); Red Cell Distribution Width 14.3 % (11.5-14.0); White Blood Count 8.6 K/mm3 (4.0-10.5)
[2020-01-02 05:07] LABS: ALBUMIN 4.3 g/dL (3.5-5.0); ALKALINE PHOSPHATASE 59 U/L (38-126); ANION GAP 13.4 MEQ/L (5-15); BLOOD UREA NITROGEN 10 mg/dL (7-17); CHLORIDE 98 mmol/L (98-107); Calcium 8.5 mg/dL (8.4-10.2); Carbon Dioxide 32 mmol/L (22-30); Creatinine 1 0.73 mg/dL (0.52-1.04); Glucose 134 mg/dL (74-106); Potassium 3.7 mmol/L (3.5-5.1); SGOT/AST 20 U/L (14-36); SGPT/ALT 21 U/L (0-35); SODIUM 140 mmol/L (137-145); Total Protein 7.5 g/dL (6.3-8.2)
[2020-01-02] MEDS: Merrem 1 GM 1 G in Sodium Chloride 100ML MINI-BAG PLUS 100 ML IV SCH ×2 (05:33→14:12)
[2020-01-02] MEDS: Augmentin 875-125 Tablet PO SCH (08:26)
[2020-01-02] MEDS: Glucophage XR 500 MG PO SCH (08:26)
--- NOTE | 2020-01-02 09:10 | DS ---
DISCHARGE DIAGNOSES: 1) HEMORRHAGIC CYSTITIS. 2) ESCHERICHIA COLI URINARY TRACT INFECTION. HISTORY: The patient is a 59 year old white female who reports that she began seeing blood in her urine. She was having some abdominal pain. She presented to the emergency room and was admitted to the hospital for antibiotic treatment. The patient's medical history was significant for coronary artery disease, hypertension and diabetes mellitus. HOSPITAL COURSE: The patient was initially treated with IV Rocephin. However the urine culture came back resistant to Rocephin and was sensitive to meropenem and she was begun on this. The patient did much better once she started on meropenem. It also appeared to be sensitive to ampicillin and sulbactam so we also started her on Augmentin 875 twice a day in the hopes that this would also be helpful for the urinary tract infection. The patient by the time of discharge laboratory studies showed her sugar to be 134 fasting. Her BUN was 10, creatinine 0.73. Electrolytes were essentially normal. Her white count was down to 8,600, hemoglobin 10.7, PLT count 230,000. The patient's discharge medications will be Augmentin 875 twice a day for seven days. She is to see us in the office in one week for follow up or return to the hospital if she had any further problems in the interim. She will continue using her usual home medications which Albuterol PRN, Alprazolam 1 mg PRN for anxiety, aspirin 81 mg daily, atorvastatin 80 mg a day, Plavix 75 mg daily, duloxetine 60 mg a daily, famotidine 40 mg at night, folic acid 1 mg a day, gabapentin 600 mg b.i.d., metformin extended release 500 mg b.i.d., metoprolol 25 mg b.i.d., pantoprazole 40 mg a day, Spironolactone 25 mg b.i.d., Torsemide 40 mg b.i.d.
[2020-01-02] MEDS: XANAX 1 MG PO SCH (09:51)
[2020-01-02] MEDS: Aldactone 25 MG PO SCH (09:51)
[2020-01-02] MEDS: Pepcid 20 MG VIAL IV SCH (09:51)
[2020-01-02] MEDS: DEMADEX 20 MG PO SCH (09:51)
[2020-01-02] MEDS: Cymbalta 30 MG Capsule PO SCH (09:51)
[2020-01-02] MEDS: Toprol-Xl 25MG Tablets PO SCH (09:52)
[2020-01-02] MEDS: Protonix 40MG Tablet PO SCH (09:52)
[2020-01-02] MEDS: ECOTRIN 81 MG PO SCH (09:52)
[2020-01-02] MEDS: FOLATE 1 MG PO SCH (09:52)
[2020-01-02] MEDS: PLAVIX 75 MG Tablet PO SCH (09:53)
[2020-01-02] MEDS: NEURONTIN 300 MG PO SCH (09:53)
[2020-01-02 12:04] VITALS: BP 114/53; PULSE 85; O2SAT 98
== END 2020-01-02 14:56 | disposition home or self-care (01) ==
LOC: ED 09:06 → MED SURG 15:54
PROVIDERS: ADMIT Family Medicine; ATTEND Family Medicine
DX: N30.01 Acute cystitis with hematuria (principal); B96.20 Unspecified Escherichia coli [E. coli] as the cause of diseases classified elsewhere; I10 Essential (primary) hypertension; E11.9 Type 2 diabetes mellitus without complications; E78.5 Hyperlipidemia, unspecified; E86.0 Dehydration; R74.8 Abnormal levels of other serum enzymes; Z79.01 Long term (current) use of anticoagulants; Z79.899 Other long term (current) drug therapy; Z86.79 Personal history of other diseases of the circulatory system; Z95.1 Presence of aortocoronary bypass graft
CPT/HCPCS: 36000; 36415; 74176; 80053; 81001; 82962; 83036; 83690; 85025; 87077; 87086; 87186; 93268; 94640; 94760; 94762; 96360; 96361; 96365; 96366; 96374; 96375; 99285; G0378; J0696; J2270; J2405; J7609; A9270-GY

== ENCOUNTER 2020-10-17 20:56 | Observation (INO) | payer MEDICARE ==
[2020-10-17] MEDS ORDERED: Sodium Chloride 0.9% 1000 ML 1,000 ML IV SCH (21:45)
[2020-10-17] MEDS ORDERED: Sodium Chloride 0.9% 1000 ML 1,000 ML ONE (21:51)
[2020-10-17 21:53] LABS: Absolute Neutrophil Ct (ANC) 2.13 (1.4-6.9); BASOPHIL % 0.3 % (0.0-0.4); Basophil (Absolute #) 0.01 (0-0.4); Eosinophil % 0.3 % (0.00-5.0); Eosinophil (Absolute #) 0.01 (0-0.5); Hematocrit 31.5 % (35-47); Lymphocyte (Absolute #) 0.68 (1.0-4.6); Lymphocytes % 21.9 % (24.0-44.0); Mean Cell Volume 87.3 fl (78-100); Mean Corpuscular Hemoglobin 27.7 pg (26-32); Mean Corpuscular Hgb Concent. 31.7 g/dl (32-36); Mean Platelet Volume 11.5 fl (7.5-11.0); Monocyte (Absolute #) 0.28 (0.0-1.3); Neutrophil % 68.5 % (36.0-66.0); Platelet Count 148 K/mm3 (150-450); Red Blood Count 3.61 M/mm3 (4.1-5.4); Red Cell Distribution Width 17.6 % (11.5-14.0); White Blood Count 3.1 K/mm3 (4.0-10.5)
[2020-10-17 22:10] LABS: ALBUMIN 3.8 g/dL (3.5-5.0); ALKALINE PHOSPHATASE 107 U/L (38-126); ANION GAP 12.5 MEQ/L (5-15); BLOOD UREA NITROGEN 13 mg/dL (7-17); CHLORIDE 89 mmol/L (98-107); Calcium 6.7 mg/dL (8.4-10.2); Carbon Dioxide 36 mmol/L (22-30); Creatinine 1 0.87 mg/dL (0.52-1.04); EST GLOMERULAR FILTRATION RATE > 60.0 ML/MIN; Glucose 118 mg/dL (74-106); SGOT/AST 34 U/L (14-36); SGPT/ALT 19 U/L (0-35); SODIUM 134 mmol/L (137-145); Total Protein 6.7 g/dL (6.3-8.2)
[2020-10-17 22:16] LABS: Potassium 2.8 mmol/L (3.5-5.1)
[2020-10-17] MEDS ORDERED: Klor Con 10 MEQ PO ONE ×2 (22:18→22:24)
--- NOTE | 2020-10-17 22:18 | ERPHSYRPT ---
- History of Present Illness Time Seen by Provider: 10/17/20 21:30 Source: patient Exam Limitations: no limitations Patient Subjective Stated Complaint: pt states, "my has covid and I'm having a cough, sob, fever, can't taste anything, ache all over and vomiting". Triage Nursing Assessment: Pt c/o fever, generalized achiness, cough, sob, can't taste anything and vomiting. Symptoms started yesterday around 3pm and have just gotten worse. Pt's spouse and sister are both positive for Covid. Inspiratory wheezes noted ant and post, heart tones reg, abd soft with active bs x4 quad, nontender. Physician History: Patient is a 60-year-old female presents to our ED with complaints of fever cough shortness of breath diarrhea loss of taste and smell mild frontal headache body aches fatigue and vomiting. Symptoms started yesterday. Patient advises that her has Covid and she believes she may have the same. Patient symptoms are progressive. Patient took Tylenol 1000 mg today at 6 PM. Patient states she does not feel significantly better. Symptoms are moderate in intensity. No specific worsening improving factors. Patient denies chest pain. Patient voices no other complaints or concerns at this time. Timing/Duration: yesterday Severity: moderate Modifying Factors: Improves With: nothing Associated Symptoms: shortness of breath, heartburn, cough, fever, malaise, No diaphoresis, No chest pain, No weakness Allergies/Adverse Reactions: Iodinated Contrast Media [Iodinated Contrast Media - IV Dye] Allergy (Severe, Verified 10/17/20 21:12) Shortness of Breath anaphylaxis Penicillins Allergy (Unknown, Verified 10/17/20 21:12) Rash prednisone Adverse Reaction (Unknown, Verified 10/17/20 21:12) Swelling on prednisone now but makes sick and irritable Home Medications: ALPRAZolam 1 MG [Xanax 1 mg] 1 mg PO DAILY 01/05/17 [History] Gabapentin 300 mg PO DAILY 01/05/17 [History] Torsemide [Demadex] 20 mg PO DAILY 01/05/17 [History] Famotidine 20 mg [Pepcid 20 MG] 40 mg PO HS 06/30/18 [History] Metformin HCl Xr 500 mg [Glucophage XR 500 MG] 500 mg PO BID 06/30/18 [History] PANTOPRAZOLE 40 mg Tablet [Protonix 40MG Tablet] 40 mg PO DAILY 06/30/18 [History] Albuterol 2.5 mg/3 ml Neb [Proventil 2.5 mg/3 ml Neb] 2.5 mg IH Q4HPRN PRN 09/08/18 [History] Duloxetine HCl [Cymbalta] 60 mg PO DAILY 09/08/18 [History] Hx Tetanus, Diphtheria Vaccination/Date Given: Yes Hx Influenza Vaccination/Date Given: Yes Hx Pneumococcal Vaccination/Date Given: Yes Immunizations Up to Date: Yes Travel Risk - International Travel Have you traveled outside of the country in past 3 weeks: No - Coronavirus Screening Are you exhibiting any of the following symptoms?: Yes Close contact with a COVID-19 positive Pt in past 14-21 Days: Yes - Vaccine Status Have you recieved a Covid-19 vaccination: No - Review of Systems Constitutional: No Symptoms, No Fever, No Chills Eyes: No Symptoms Ears, Nose, & Throat: No Symptoms Respiratory: No Symptoms, No Cough, No Dyspnea Cardiac: No Symptoms, No Chest Pain, No Edema, No Syncope Abdominal/Gastrointestinal: No Symptoms, No Abdominal Pain, No Nausea, No Vomiting, No Diarrhea Genitourinary Symptoms: No Symptoms, No Dysuria Musculoskeletal: No Symptoms, No Back Pain, No Neck Pain Skin: No Symptoms, No Rash Neurological: No Symptoms, No Dizziness, No Focal Weakness, No Sensory Changes Psychological: No Symptoms Endocrine: No Symptoms Hematologic/Lymphatic: No Symptoms Immunological/Allergic: No Symptoms All Other Systems: Reviewed and Negative - Past Medical History Pertinent Past Medical History: Yes Neurological History: Seizures, Stroke ENT History: Other Cardiac History: Congestive Heart Failure, High Cholesterol, Hypertension, Other Respiratory History: Asthma, CHF, COPD Endocrine Medical History: Diabetes Type II Musculoskeletal History: Degenerative Disk Disease GI Medical History: GERD History: Other Psycho-Social History: Anxiety, Depression Female Reproductive Disorders: No Pertinent History Other Medical History: Open heart surgery 2009, stent, ulcers in the L eye, chr onic hip pain - Past Surgical History Past Surgical History: Yes Neuro Surgical History: No Pertinent History Cardiac: CABG, Cardiac Catheterization, Cardiac Stent, Other Respiratory: No Pertinent History Gastrointestinal: Appendectomy, Bowel Surgery, Cholecystectomy, Exploratory Laparoscopy Genitourinary: No Pertinent History Musculoskeletal: Other Female Surgical History: Section, Hysterectomy Other Surgical History: BOWEL RESECTIONx3 for adhesions. pins and plate placed in foot and then removed. TRIPLE AAA REPAIR WITH CABG. cervical back surgery. 2 HIP REPLACEMENTS, RT SIDE - Social History Smoking Status: Never smoker How long have you smoked: 0 Exposure to second hand smoke: No Drug Use: none Patient Lives Alone: No - Female History Hx Now: No - Nursing Vital Signs Nursing Vital Signs: Initial Vital Signs Temperature 100.8 F 10/17/20 20:57 Pulse Rate 95 H 10/17/20 20:57 Respiratory Rate 24 10/17/20 20:57 Blood Pressure 118/57 10/17/20 20:57 O2 Sat by Pulse Oximetry 96 10/17/20 20:57 Pain Scale Pain Intensity 5 - Physical Exam General Appearance: no apparent distress, alert Eye Exam: PERRL/EOMI, eyes nml inspection Ears, Nose, Throat Exam: normal ENT inspection, TMs normal, pharynx normal, moist mucous membranes Neck Exam: normal inspection, non-tender, supple, full range of motion Respiratory Exam: normal breath sounds, lungs clear, wheezing, other (Mild whee zing at bilateral bases.), No respiratory distress Cardiovascular Exam: regular rate/rhythm, normal heart sounds, normal peripheral pulses Gastrointestinal/Abdomen Exam: soft, normal bowel sounds, No tenderness, No mass Back Exam: normal inspection, normal range of motion, No CVA tenderness, No vertebral tenderness Extremity Exam: normal inspection, normal range of motion, pelvis stable Neurologic Exam: alert, oriented x 3, cooperative, normal mood/affect, nml cerebellar function, nml station & gait, sensation nml, No motor deficits Skin Exam: normal color, warm, dry, No rash Lymphatic Exam: No adenopathy SpO2 Interpretation: normal SpO2: 95 O2 Delivery: Room Air Ordered Tests: Active Orders 24 hr Category Date Time Status EKG-ER Only STAT Care 10/17/20 21:35 Active IV Insertion STAT Care 10/17/20 21:35 Active CHEST 1 VIEW (PORTABLE) Stat Exams 10/17/20 21:35 Taken CBC W DIFF Stat Lab 10/17/20 21:30 Completed CMP Stat Lab 10/17/20 21:30 Completed TROPONIN Q3H Lab 10/17/20 21:30 Completed TROPONIN Q3H Lab 10/18/20 00:35 Completed TROPONIN Q3H Lab 10/18/20 03:45 Ordered TROPONIN Q3H Lab 10/18/20 06:45 Ordered TROPONIN Q3H Lab 10/18/20 09:45 Ordered UA W/RFX UR CULTURE Stat Lab 10/18/20 00:20 Completed Transfer Order Routine Transfer 10/18/20 Ordered Medication Summary Generic Name Dose Route Start Last Admin Trade Name Freq PRN Reason Stop Dose Admin Sodium Chloride 1,000 mls @ 100 mls/hr 10/17/20 21:45 10/17/20 21:52 Sodium Chloride 0.9% 1000 Ml IV 11/16/20 21:44 100 mls/hr .Q10H LITO Administration Remdesivir 250 mg/ Sodium 250 mls @ 125 mls/hr 10/18/20 01:36 Chloride IV 10/18/20 03:35 ONCE ONE Discontinued Medications Generic Name Dose Route Start Last Admin Trade Name Freq PRN Reason Stop Dose Admin Enoxaparin Sodium 73 mg 10/18/20 01:35 Enoxaparin Sodium SQ 10/18/20 01:36 STAT ONE Ondansetron HCl 4 mg 10/17/20 22:31 10/17/20 22:47 Zofran 4 Mg/2 Ml Vial IV 10/17/20 22:32 4 mg STAT ONE Administration Ondansetron HCl Confirm 10/17/20 22:47 Zofran 4 Mg/2 Ml Vial Administered 10/17/20 22:48 Dose 4 mg .ROUTE .STK-MED ONE Potassium Chloride 40 meq 10/17/20 22:18 10/17/20 22:25 Klor Con 10 Meq PO 10/17/20 22:19 40 meq STAT ONE Administration Potassium Chloride Confirm 10/17/20 22:24 Klor Con 10 Meq Administered 10/17/20 22:25 Dose 40 meq PO .STK-MED ONE Lab/Rad Data: Laboratory Result Diagrams 10/17/20 21:30 10/17/20 21:30 Laboratory Results 10/18/20 10/18/20 10/18/20 Range/Units 00:35 00:35 00:20 WBC (4.0-10.5) K/mm3 RBC (4.1-5.4) M/mm3 Hgb (12.0-16.0) gm/dl Hct (35-47) % MCV (78-100) fl MCH (26-32) pg MCHC (32-36) g/dl RDW (11.5-14.0) % Plt Count (150-450) K/mm3 MPV (7.5-11.0) fl Gran % (36.0-66.0) % Eos # (Auto) (0-0.5) Absolute Lymphs (auto) (1.0-4.6) Absolute Monos (auto) (0.0-1.3) Lymphocytes % (24.0-44.0) % Monocytes % (0.0-12.0) % Eosinophils % (0.00-5.0) % Basophils % (0.0-0.4) % Absolute Granulocytes (1.4-6.9) Basophils # (0-0.4) Sodium (137-145) mmol/L Potassium (3.5-5.1) mmol/L Chloride (98-107) mmol/L Carbon Dioxide (22-30) mmol/L Anion Gap (5-15) MEQ/L BUN (7-17) mg/dL Creatinine (0.52-1.04) mg/dL Estimated GFR ML/MIN Glucose (74-106) mg/dL Calcium (8.4-10.2) mg/dL Total Bilirubin (0.2-1.3) mg/dL AST (14-36) U/L ALT (0-35) U/L Alkaline Phosphatase (38-126) U/L Troponin I < 0.012 (0.000-0.034) ng/mL Serum Total Protein (6.3-8.2) g/dL Albumin (3.5-5.0) g/dL Urine Color YELLOW (YELLOW) Urine Appearance CLEAR (CLEAR) Urine pH 6.0 (5-6) Ur Specific [place] 1.010 (1.005-1.025) Urine Protein NEGATIVE (Negative) Urine Ketones NEGATIVE (NEGATIVE) Urine Blood NEGATIVE (0-5) Arnel/ul Urine Nitrite NEGATIVE (NEGATIVE) Urine Bilirubin NEGATIVE (NEGATIVE) Urine Urobilinogen NEGATIVE (0-1) mg/dL Ur Leukocyte Esterase NEGATIVE (NEGATIVE) Urine WBC (Auto) 3-5 (0-5) /HPF Urine RBC (Auto) NONE (0-2) /HPF U Epithel Cells (Auto) NONE (FEW) /HPF Urine Bacteria (Auto) NONE (NEGATIVE) /HPF Urine Culture Reflexed NO (NO) Urine Glucose NEGATIVE (NEGATIVE) mg/dL Influenza Type A Ag NEGATIVE (NEGATIVE) Influenza Type B Ag NEGATIVE (NEGATIVE) RSV (PCR) NEGATIVE (Negative) SARS-CoV-2 (PCR) POSITIVE A (NEGATIVE) 10/17/20 10/17/20 10/17/20 Range/Units 21:30 21:30 21:30 WBC 3.1 L (4.0-10.5) K/mm3 RBC 3.61 L (4.1-5.4) M/mm3 Hgb 10.0 L (12.0-16.0) gm/dl Hct 31.5 L (35-47) % MCV 87.3 (78-100) fl MCH 27.7 (26-32) pg MCHC 31.7 L (32-36) g/dl RDW 17.6 H (11.5-14.0) % Plt Count 148 L (150-450) K/mm3 MPV 11.5 H (7.5-11.0) fl Gran % 68.5 H (36.0-66.0) % Eos # (Auto) 0.01 (0-0.5) Absolute Lymphs (auto) 0.68 L (1.0-4.6) Absolute Monos (auto) 0.28 (0.0-1.3) Lymphocytes % 21.9 L (24.0-44.0) % Monocytes % 9.0 (0.0-12.0) % Eosinophils % 0.3 (0.00-5.0) % Basophils % 0.3 (0.0-0.4) % Absolute Granulocytes 2.13 (1.4-6.9) Basophils # 0.01 (0-0.4) Sodium 134 L (137-145) mmol/L Potassium 2.8 L* (3.5-5.1) mmol/L Chloride 89 L (98-107) mmol/L Carbon Dioxide 36 H (22-30) mmol/L Anion Gap 12.5 (5-15) MEQ/L BUN 13 (7-17) mg/dL Creatinine 0.87 (0.52-1.04) mg/dL Estimated GFR > 60.0 ML/MIN Glucose 118 H (74-106) mg/dL Calcium 6.7 L (8.4-10.2) mg/dL Total Bilirubin 0.80 (0.2-1.3) mg/dL AST 34 (14-36) U/L ALT 19 (0-35) U/L Alkaline Phosphatase 107 (38-126) U/L Troponin I < 0.012 (0.000-0.034) ng/mL Serum Total Protein 6.7 (6.3-8.2) g/dL Albumin 3.8 (3.5-5.0) g/dL Urine Color (YELLOW) Urine Appearance (CLEAR) Urine pH (5-6) Ur Specific [place] (1.005-1.025) Urine Protein (Negative) Urine Ketones (NEGATIVE) Urine Blood (0-5) Arnel/ul Urine Nitrite (NEGATIVE) Urine Bilirubin (NEGATIVE) Urine Urobilinogen (0-1) mg/dL Ur Leukocyte Esterase (NEGATIVE) Urine WBC (Auto) (0-5) /HPF Urine RBC (Auto) (0-2) /HPF U Epithel Cells (Auto) (FEW) /HPF Urine Bacteria (Auto) (NEGATIVE) /HPF Urine Culture Reflexed (NO) Urine Glucose (NEGATIVE) mg/dL Influenza Type A Ag (NEGATIVE) Influenza Type B Ag (NEGATIVE) RSV (PCR) (Negative) SARS-CoV-2 (PCR) (NEGATIVE) - Progress Progress: improved Progress Note: Patient reassessed. She feels better. We will admit patient for further evaluation and treatment. Patient tested Covid positive. Case discussed with Dr. Iniguez who accepts admission to observation. Per Dr. Marroquin patient received a dose of 1 mg/kg Lovenox. 2050 mg of remdesivir ordered as well. [facility] for anxiety. Plan of care discussed with patient. She agrees to admission at [facility] for further evaluation and treatment. 10/18/20 01:[address] Other (Hira) Will see patient in: hospital (observation) Counseled pt/family regarding: lab results, diagnosis, rad results - Departure Departure Disposition: Observation Clinical Impression: Hypokalemia, Anemia, Thrombocytopenia, Fever, Hypoxia, Cough, Diarrhea, Myalgia, Wheezing Condition: Stable Critical Care Time: No Referrals: ROSALIE MARTIENZ [Primary Care Provider] -
[2020-10-17] MEDS ORDERED: Zofran 4 MG/2 ML VIAL IV ONE (22:31)
[2020-10-17] MEDS ORDERED: Zofran 4 MG/2 ML VIAL ONE (22:47)
[2020-10-18 00:33] LABS: Appearance CLEAR (CLEAR); Bilirubin NEGATIVE (NEGATIVE); Blood NEGATIVE Ery/ul (0-5); Glucose NEGATIVE (NEGATIVE); Ketones NEGATIVE (NEGATIVE); Leukocyte Esterase NEGATIVE (NEGATIVE); Nitrite NEGATIVE (NEGATIVE); Protein,Urine Dip NEGATIVE (Negative); Urobilinogen NEGATIVE mg/dL (0-1)
[2020-10-18 01:22] LABS: INFLUENZA A NEGATIVE (NEGATIVE); INFLUENZA B NEGATIVE (NEGATIVE); RESPIRATORY SYNCTIAL VIRUS NEGATIVE (Negative)
[2020-10-18] MEDS ORDERED: ENOXAPARIN SODIUM SQ ONE ×2 (01:35→01:44)
[2020-10-18] MEDS ORDERED: REMDESIVIR 250 MG in Sodium Chloride 0.9% 250 ML 250 ML IV ONE (01:36)
[2020-10-18] MEDS ORDERED: Sodium Chloride 0.9% 1000 ML 1,000 ML IV SCH (03:19)
[2020-10-18] MEDS ORDERED: Combivent Inhaler COMMON CANISTER IH SCH (03:19)
[2020-10-18] MEDS ORDERED: Ativan 2 MG/1 ML VIAL IV PRN (03:19)
[2020-10-18] MEDS ORDERED: TYLENOL 325 MG PO PRN (03:19)
[2020-10-18] MEDS ORDERED: VENTOLIN COMMON CANISTER IH PRN (04:08)
[2020-10-18] MEDS ORDERED: REMDESIVIR IV ONE (04:19)
[2020-10-18] MEDS ORDERED: Sodium Chloride 0.9% 250 ML 250 ML IV ONE (04:19)
[2020-10-18 06:29] LABS: ALBUMIN 3.3 g/dL (3.5-5.0); ALKALINE PHOSPHATASE 102 U/L (38-126); ANION GAP 10.6 MEQ/L (5-15); BLOOD UREA NITROGEN 11 mg/dL (7-17); CHLORIDE 95 mmol/L (98-107); Calcium 6.4 mg/dL (8.4-10.2); Carbon Dioxide 34 mmol/L (22-30); Creatinine 1 0.78 mg/dL (0.52-1.04); EST GLOMERULAR FILTRATION RATE > 60.0 ML/MIN; Glucose 118 mg/dL (74-106); SGOT/AST 26 U/L (14-36); SGPT/ALT 16 U/L (0-35); SODIUM 137 mmol/L (137-145)
[2020-10-18 06:39] LABS: Potassium 2.8 mmol/L (3.5-5.1)
[2020-10-18 06:43] LABS: Absolute Neutrophil Ct (ANC) 1.63 (1.4-6.9); Basophil (Absolute #) 0 (0-0.4); Eosinophil % 0.4 % (0.00-5.0); Eosinophil (Absolute #) 0.01 (0-0.5); Hematocrit 30.8 % (35-47); Hemoglobin 9.7 gm/dl (12.0-16.0); Lymphocyte (Absolute #) 0.72 (1.0-4.6); Lymphocytes % 26.9 % (24.0-44.0); Mean Cell Volume 88.3 fl (78-100); Mean Corpuscular Hemoglobin 27.8 pg (26-32); Mean Corpuscular Hgb Concent. 31.5 g/dl (32-36); Mean Platelet Volume 11.9 fl (7.5-11.0); Monocyte (Absolute #) 0.32 (0.0-1.3); Monocytes % 11.9 % (0.0-12.0); Neutrophil % 60.8 % (36.0-66.0); Platelet Count 131 K/mm3 (150-450); Red Blood Count 3.49 M/mm3 (4.1-5.4); Red Cell Distribution Width 17.8 % (11.5-14.0); White Blood Count 2.7 K/mm3 (4.0-10.5)
[2020-10-18] MEDS: POTASSIUM CHLORIDE 20 mEq IN WATER 100ML 20 MEQ/100 ML BAG IV SCH ×3 (06:54→09:59)
--- NOTE | 2020-10-18 08:52 | XRAY ---
Indication: Pneumonia. Comparison: November 08, 2019. Portable chest demonstrates new hazy left lung interstitial alveolar opacities without consolidation/large effusion. Remaining heart and lungs unremarkable. Bony thorax intact again with sternotomy wires.
[2020-10-18] MEDS ORDERED: Zofran 4 MG/2 ML VIAL IV PRN (09:03)
[2020-10-18] MEDS ORDERED: POTASSIUM CHLORIDE IV SCH (11:30)
[2020-10-18] MEDS ORDERED: SODIUM CHLORIDE 0.9% IV SCH (11:30)
[2020-10-18] MEDS ORDERED: DECADRON 10MG INJ. IV SCH (12:00)
[2020-10-18] MEDS ORDERED: PROVENTIL 2.5 MG/3 ML NEB IH PRN (15:21)
[2020-10-18] MEDS ORDERED: Flonase NASAL NS PRN (15:21)
[2020-10-18] MEDS ORDERED: MEDICATION INTERVENTION PO SCH (15:45)
[2020-10-18] MEDS ORDERED: Cymbalta 30 MG Capsule PO SCH (16:00)
[2020-10-18] MEDS ORDERED: NEURONTIN 300 MG PO SCH (16:00)
[2020-10-18] MEDS ORDERED: Protonix 40MG Tablet PO SCH (16:00)
[2020-10-18] MEDS ORDERED: DEMADEX 20 MG PO SCH (16:00)
[2020-10-18] MEDS ORDERED: ATARAX 25 MG PO SCH (16:00)
[2020-10-18] MEDS ORDERED: Glucophage XR 500 MG PO SCH (17:00)
[2020-10-18] MEDS: SENOKOT 8.6 MG PO SCH ×2 (17:09→17:13)
[2020-10-18] MEDS ORDERED: POTASSIUM CHLORIDE 20 mEq IN WATER 100ML 20 MEQ/100 ML BAG IV ONE (17:41)
[2020-10-18] MEDS ORDERED: POTASSIUM CHLORIDE 20 mEq IN WATER 100ML 100 ML IV ONE (17:49)
[2020-10-18] MEDS ORDERED: REMDESIVIR 100 MG in Sodium Chloride 0.9% 100 ML IVPB 100 ML IV SCH (21:00)
[2020-10-18 21:12] VITALS: BP 113/69; PULSE 90; O2SAT 96
[2020-10-18] MEDS ORDERED: Toprol-Xl 25MG Tablets PO SCH (22:00)
[2020-10-18] MEDS ORDERED: XANAX 1 MG PO SCH (22:00)
[2020-10-18] MEDS ORDERED: Pepcid 20 MG PO SCH (22:00)
[2020-10-18] MEDS ORDERED: NON-FORMULARY ITEM (Melatonin [Melatonin] 5 MG) PO SCH (22:00)
[2020-10-19] MEDS ORDERED: NON-FORMULARY ITEM (Duloxetine Hcl [Cymbalta] 60 MG) PO SCH (10:00)
[2020-10-19] MEDS ORDERED: TORSEMIDE 20 MG PO SCH (10:00)
[2020-10-20] MEDS ORDERED: SENOKOT 8.6 MG PO SCH (10:00)
--- NOTE | 2020-10-21 10:17 | HP ---
HISTORY OF PRESENT ILLNESS: Cough, aching all over, shortness of breath, fever, cannot taste anything, achy, vomiting and has felt terrible for the last 24 hours. has COVID, sister has COVID. She has coronary artery disease and worried about symptoms getting worse. She has taken some Tylenol. MEDICATIONS: Xanax 1 mg daily, Neurontin 300 t.i.d., Demadex 20 q.d., Pepcid 20 q.d., Metformin XR 500 b.i.d., Albuterol 2.5 by nebulizer q.4h PRN, Protonix PRN, Cymbalta PRN, Flonase nasal spray 1 h.s., Atarax 25 t.i.d. for itchy eyes, melatonin 5 mg h.s., metoprolol 25 q.d., Senokot 1 q.d. ALLERGIES: PENICILLIN (RASH). PREDNISONE (SWELLING SAID IT MAKES HER IRRITABLE AND SICK). CONTRAST DYE (ANAPHYLAXIS). PAST MEDICAL HISTORY: Coronary artery disease, diabetes mellitus well controlled, heart failure, high cholesterol, hypertension, asthma, degenerative disc disease in the back and neck, anxiety, depression. PAST SURGICAL HISTORY: Open heart surgery 2009. A stent was placed sometime later. Ulcer left eye once treated and she has chronic pain. Appendectomy. Bowel resection for adhesions x3. Cholecystectomy. Exploratory laparotomy. section. Hysterectomy. Foot fracture. Abdominal aortic aneurysm repaired with coronary artery bypass. Cervical and back surgery. Two hip replacements right side. SOCIAL HISTORY: Never smoked. Secondhand smoke. No drug use. Lives with . Her sister is here with COVID also and a friend. PHYSICAL EXAMINATION: The patient is alert, orientated, pleasant, in no distress this a.m. VITAL SIGNS: Temperature about 100.8F, pulse 90, respirations 20, blood pressure 122/60. O2 saturation on oximetry is 96%. GENERAL: The patient is in no apparent distress. She is alert. She is anxious. HEENT: Pupils equal and reactive to light. NECK: Supple without adenopathy. CHEST: Clear. CVS: No murmurs or gallops. ABDOMEN: Soft. No masses or organomegaly. BACK: No tenderness. Normal range of motion. NEUROLOGIC: She is alert, orientated, pleasant. Shows no signs of depression. She is a little anxious. SKIN: Warm and dry. LAB DATA AND TESTS: Troponins were negative. EKG was okay. She appeared to be dehydrated. She did get a liter of normal saline and Remdesivir was started at 250 as well as Decadron and she was anticoagulated with 73 mg of Lovenox because of her coronary artery disease and she had an elevated D-dimer. She had some nausea and was given some Zofran. Potassium was low at 3.0 and she was given 40 mEq p.o. and later on was given a loading dose before going home and had gone up from 2.8 to 3.1 White count was normal at 2.8. Hemoglobin 10. Sodium 138. Initial potassium 128. Following treatment with IV fluids, potassium and Decadron the patient felt better. Actually in the morning she felt better. She asked me if at 1700 hours she could go home. She felt much better and was in no distress. She was laughing. We decided to send her home on potassium plus home medications to follow up with her personal doctor in seven to ten days. She is to be in isolation and this has been discussed with her family. IMPRESSION: The patient has: 1) COVID. 2) Hypokalemia. 3) Anemia. 4) Thrombocytopenia. 5) Fever. 6) Hypoxia. 7) Myalgia. 8) Wheezing. 9) Coronary artery disease. 10) Degenerative arthritis of the back. 11) History of anxiety. 12) Nonsmoker. 13) Diabetes mellitus. PLAN: She will be on her home medication plus potassium 10 mEq a day. She said she is not taking a diuretic right now. She is to discuss that with her physician. She was advised to return to the emergency room for shortness of breath, cough, fever, chills or any neurological or GI change. PROGNOSIS: Fair.
== END 2020-10-18 21:40 | disposition home or self-care (01) ==
LOC: ED 20:56 → MED SURG 10-18 02:37
PROVIDERS: ADMIT Family Medicine; ATTEND Family Medicine
DX: U07.1 COVID-19 (principal); E87.6 Hypokalemia; R50.9 Fever, unspecified; R06.02 Shortness of breath; R19.7 Diarrhea, unspecified; R51.9 Headache, unspecified; M79.10 Myalgia, unspecified site; R43.8 Other disturbances of smell and taste; Z79.899 Other long term (current) drug therapy; E11.9 Type 2 diabetes mellitus without complications; I10 Essential (primary) hypertension; E78.00 Pure hypercholesterolemia, unspecified; J44.9 Chronic obstructive pulmonary disease, unspecified; E86.0 Dehydration; Z20.828 Contact with and (suspected) exposure to other viral communicable diseases; D64.9 Anemia, unspecified; D69.6 Thrombocytopenia, unspecified; R09.02 Hypoxemia; I25.10 Atherosclerotic heart disease of native coronary artery without angina pectoris; Z95.1 Presence of aortocoronary bypass graft; M47.9 Spondylosis, unspecified
CPT/HCPCS: 0241U; 36000; 36415; 71045; 80053; 81001; 82947; 84132; 84484; 85025; 85379; 93005; 93268; 94762; 96372; 96374; 99284; G0378; J1100; J1650; J2060; J2405; J3480; A9270-GY

== ENCOUNTER 2021-01-15 18:00 | Emergency (ER) | payer MEDICARE ==
[2021-01-15] MEDS ORDERED: Sodium Chloride 0.9% 1000 ML 1,000 ML IV STA (18:20)
--- NOTE | 2021-01-15 18:42 | ERPHSYRPT ---
- History of Present Illness Source: patient Exam Limitations: no limitations Patient Subjective Stated Complaint: pt her for not feeling well, she states she is tried with a sore throat and cough, she went to a clinic at [facility] and they sent her here due to low b/p. Triage Nursing Assessment: pt alert, resp easy, face mask in place, has dry cough, deneis pain Timing/Duration: today Cough Quality/Degree: dry cough Possible Cause: occasional episodes Modifying Factors: Improves With: coughing Associated Symptoms: cough, lightheadedness, No fever, No chills Hx Tetanus, Diphtheria Vaccination/Date Given: Yes Hx Influenza Vaccination/Date Given: No Hx Pneumococcal Vaccination/Date Given: No Immunizations Up to Date: Yes <ROBINA NELSON - Last Filed: 01/15/21 18:38> <AIDA OSULLIVAN - Last Filed: 01/15/21 20:59> - History of Present Illness Time Seen by Provider: 01/15/21 18:20 Physician History: Patient is a 60-year-old white female who presents with this primary complaint of sore throat and cough today some fatigue. She was seen at a clinic in [place] where they found her blood pressure to be a little bit low and sent her to the ER. She states her normal blood pressure is 112 over 70s this evening in our ER we got 109/63. Her only blood pressure medicines are Demadex and metoprolol and have not been changed recently the patient did have Covid in July and received vaccination afterwards. (ROBINA NELSON) Allergies/Adverse Reactions: Iodinated Contrast Media [Iodinated Contrast Media - IV Dye] Allergy (Severe, Verified 01/15/21 18:15) Shortness of Breath anaphylaxis Penicillins Allergy (Unknown, Verified 01/15/21 18:15) Rash prednisone Adverse Reaction (Unknown, Verified 01/15/21 18:15) Swelling on prednisone now but makes sick and irritable Home Medications: ALPRAZolam 1 MG [Xanax 1 mg] 0.5 mg PO HS 01/05/17 [History] Gabapentin 300 mg PO DAILY 01/05/17 [History] Torsemide [Demadex] 20 mg PO DAILY 01/05/17 [History] Famotidine 20 mg [Pepcid 20 MG] 40 mg PO HS 06/30/18 [History] Metformin HCl Xr 500 mg [Glucophage XR 500 MG] 500 mg PO BID 06/30/18 [History] PANTOPRAZOLE 40 mg Tablet [Protonix 40MG Tablet] 40 mg PO DAILY 06/30/18 [History] Albuterol 2.5 mg/3 ml Neb [Proventil 2.5 mg/3 ml Neb] 2.5 mg IH Q4HPRN PRN 09/08/18 [History] Duloxetine HCl [Cymbalta] 60 mg PO DAILY 09/08/18 [History] Cyanocobalamin 1000 Mcg/ml [Cyanocobalamin B-12 1000 MCG/ML] 1,000 mcg IJ UD 10/18/20 [History] Fluticasone Propionate [Flonase NASAL] 1 spray NS DAILY PRN PRN 10/18/20 [History] Hydroxyzine HCl 25 mg [Atarax 25 mg] 25 mg PO TID 10/18/20 [History] Melatonin 5 mg PO HS 10/18/20 [History] Metoprolol Succinate 25 mg Xl* [Toprol-Xl 25MG Tablets] 25 mg PO BID 10/18/20 [History] Sennosides [Senokot] 8.6 mg PO UD 10/18/20 [History] Hydrocodone/Acetaminophen [Hydrocodon-Acetamin 7.5-325/15] 1 ea TID 01/15/21 [History] Trazodone HCl 150 mg PO HS 01/15/21 [History] Travel Risk - International Travel Have you traveled outside of the country in past 3 weeks: No - Coronavirus Screening Are you exhibiting any of the following symptoms?: No Symptoms: Cough: New Onset, Headaches/Body Aches/Fatigue Close contact with a COVID-19 positive Pt in past 14-21 Days: No - Vaccine Status Have you recieved a Covid-19 vaccination: Yes 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 <ROBINA NELSON - Last Filed: 01/15/21 18:38> - Review of Systems Constitutional: No Fever, No Chills Eyes: No Symptoms Ears, Nose, & Throat: No Symptoms, Throat Pain, Hoarse, Painful Swallowing Respiratory: Cough, No Dyspnea Cardiac: No Chest Pain, No Edema, No Syncope Abdominal/Gastrointestinal: No Abdominal Pain, No Nausea, No Vomiting, No Diarrh ea Genitourinary Symptoms: No Dysuria Musculoskeletal: No Back Pain, No Neck Pain Skin: No Rash Neurological: No Dizziness, No Focal Weakness, No Sensory Changes Psychological: No Symptoms Endocrine: No Symptoms All Other Systems: Reviewed and Negative <ROBINA NELSON - Last Filed: 01/15/21 18:38> - Past Medical History Pertinent Past Medical History: Yes Neurological History: Seizures, Stroke ENT History: Other Cardiac History: Congestive Heart Failure, High Cholesterol, Hypertension, Other Respiratory History: Asthma, CHF, COPD Endocrine Medical History: Diabetes Type II Musculoskeletal History: Degenerative Disk Disease GI Medical History: GERD History: Other Psycho-Social History: Anxiety, Depression Female Reproductive Disorders: No Pertinent History Other Medical History: Open heart surgery 2009, stent, ulcers in the L eye, chronic hip pain , covid 2020 - Past Surgical History Past Surgical History: Yes Neuro Surgical History: No Pertinent History Cardiac: CABG, Cardiac Catheterization, Cardiac Stent, Other Respiratory: No Pertinent History Gastrointestinal: Appendectomy, Bowel Surgery, Cholecystectomy, Exploratory Laparoscopy Genitourinary: No Pertinent History Musculoskeletal: Orthopedic Surgery, Other Female Surgical History: Section, Hysterectomy Other Surgical History: BOWEL RESECTIONx3 for adhesions. pins and plate placed in foot and then removed. TRIPLE AAA REPAIR WITH CABG. cervical back surgery. 2 HIP REPLACEMENTS, RT SIDE,cervical 2020 - Social History Smoking Status: Never smoker How long have you smoked: 0 Exposure to second hand smoke: No Drug Use: none Patient Lives Alone: No - Female History Hx Last Menstrual Period: post Hx Now: No <ROBINA NELSON Last Filed: 01/15/21 18:38> - Physical Exam General Appearance: mild distress, alert Eye Exam: PERRL/EOMI, eyes nml inspection Ears, Nose, Throat Exam: normal ENT inspection, TMs normal, moist mucous membranes, pharyngeal erythema Neck Exam: normal inspection, non-tender, supple, full range of motion Respiratory Exam: normal breath sounds, rhonchi, No respiratory distress Cardiovascular Exam: regular rate/rhythm, normal heart sounds Gastrointestinal/Abdomen Exam: soft, No tenderness Back Exam: normal inspection, No CVA tenderness, No vertebral tenderness Extremity Exam: normal inspection, normal range of motion Neurologic Exam: alert, oriented x 3, cooperative, normal mood/affect, sensation nml, No motor deficits Skin Exam: normal color, warm, dry, No rash Lymphatic Exam: inguinal node tender (L), No adenopathy SpO2: 96 O2 Delivery: Room Air <ROBINA NELSON - Last Filed: 01/15/21 18:38> - Nursing Vital Signs Nursing Vital Signs: Initial Vital Signs Temperature 97.2 F 01/15/21 18:07 Pulse Rate 64 01/15/21 18:07 Respiratory Rate 18 01/15/21 18:07 Blood Pressure 109/63 01/15/21 18:07 O2 Sat by Pulse Oximetry 98 01/15/21 18:07 Pain Scale Pain Intensity 0 - Course Nursing assessment & vital signs reviewed: Yes EKG Interpreted by Me: RATE (68), Sinus Rhythm, NORMAL AXIS, NORMAL INTERVALS - Radiology Exams Chest X-ray Interpretation: Interpreted by me (Lung similar to 10/17/2020. No new infiltrate or consolidation. Intact sternotomy wires. Heart and lungs otherwise nonremarkable intact bony thorax.) <AIDA OSULLIVAN - Last Filed: 01/15/21 20:59> Ordered Tests: Active Orders 24 hr Category Date Time Status EKG-ER Only STAT Care 01/15/21 18:20 Active CHEST 1 VIEW (PORTABLE) Stat Exams 01/15/21 18:21 Taken BLOOD CULTURE Stat Lab 01/15/21 19:00 Received CBC W DIFF Stat Lab 01/15/21 18:20 Completed CMP Stat Lab 01/15/21 18:55 Completed INFLUENZA A+B MARIAJOSE Stat Lab 01/15/21 19:00 Completed Lactic Acid Stat Lab 01/15/21 18:45 Completed MAGNESIUM Stat Lab 01/15/21 18:55 Completed NT PRO BNP Stat Lab 01/15/21 18:55 Completed TROPONIN Q3H Lab 01/15/21 18:55 Completed TROPONIN Q3H Lab 01/15/21 21:30 Ordered TROPONIN Q3H Lab 01/16/21 00:30 Ordered TROPONIN Q3H Lab 01/16/21 03:30 Ordered TROPONIN Q3H Lab 01/16/21 06:30 Ordered UA W/RFX UR CULTURE Stat Lab 01/15/21 18:21 Ordered Medication Summary Discontinued Medications Generic Name Dose Route Start Last Admin Trade Name Freq PRN Reason Stop Dose Admin Sodium Chloride 1,000 mls @ 999 mls/hr 01/15/21 18:20 01/15/21 18:49 Sodium Chloride 0.9% 1000 Ml IV 01/15/21 19:20 999 mls/hr .Q1H1M STA Administration Sodium Chloride Confirm 01/15/21 18:47 Sodium Chloride 0.9% 1000 Ml Administered 01/15/21 18:48 Dose 1,000 mls @ ud .ROUTE .STK-MED ONE Lab/Rad Data: Laboratory Result Diagrams 01/15/21 18:20 01/15/21 18:55 Laboratory Results 01/15/21 01/15/21 01/15/21 Range/Units 19:00 19:00 18:55 WBC (4.0-10.5) K/mm3 RBC (4.1-5.4) M/mm3 Hgb (12.0-16.0) gm/dl Hct (35-47) % MCV (78-100) fl MCH (26-32) pg MCHC (32-36) g/dl RDW (11.5-14.0) % Plt Count (150-450) K/mm3 MPV (7.5-11.0) fl Gran % (36.0-66.0) % Eos # (Auto) (0-0.5) Absolute Lymphs (auto) (1.0-4.6) Absolute Monos (auto) (0.0-1.3) Lymphocytes % (24.0-44.0) % Monocytes % (0.0-12.0) % Eosinophils % (0.00-5.0) % Basophils % (0.0-0.4) % Absolute Granulocytes (1.4-6.9) Basophils # (0-0.4) Sodium (137-145) mmol/L Potassium (3.5-5.1) mmol/L Chloride (98-107) mmol/L Carbon Dioxide (22-30) mmol/L Anion Gap (5-15) MEQ/L BUN (7-17) mg/dL Creatinine (0.52-1.04) mg/dL Estimated GFR ML/MIN Glucose (74-106) mg/dL Lactic Acid (0.4-2.0) Calcium (8.4-10.2) mg/dL Magnesium (1.6-2.3) mg/dL Total Bilirubin (0.2-1.3) mg/dL AST (14-36) U/L ALT (0-35) U/L Alkaline Phosphatase (38-126) U/L Troponin I < 0.012 (0.000-0.034) ng/mL NT-Pro-B Natriuret Pep (0-900) pg/mL Serum Total Protein (6.3-8.2) g/dL Albumin (3.5-5.0) g/dL Influenza Type A Ag NEGATIVE (NEGATIVE) Influenza Type B Ag NEGATIVE (NEGATIVE) SARS-CoV-2 (PCR) NEGATIVE (NEGATIVE) Group A Strep Antibody NOT DETECTED (NEGATIVE) 01/15/21 01/15/21 01/15/21 Range/Units 18:55 18:45 18:20 WBC 5.9 (4.0-10.5) K/mm3 RBC 3.77 L (4.1-5.4) M/mm3 Hgb 10.3 L (12.0-16.0) gm/dl Hct 34.9 L (35-47) % MCV 92.6 (78-100) fl MCH 27.3 (26-32) pg MCHC 29.5 L (32-36) g/dl RDW 14.9 H (11.5-14.0) % Plt Count 224 (150-450) K/mm3 MPV 10.5 (7.5-11.0) fl Gran % 50.6 (36.0-66.0) % Eos # (Auto) 0.19 (0-0.5) Absolute Lymphs (auto) 2.12 (1.0-4.6) Absolute Monos (auto) 0.58 (0.0-1.3) Lymphocytes % 36.1 (24.0-44.0) % Monocytes % 9.9 (0.0-12.0) % Eosinophils % 3.2 (0.00-5.0) % Basophils % 0.2 (0.0-0.4) % Absolute Granulocytes 2.98 (1.4-6.9) Basophils # 0.01 (0-0.4) Sodium 141 (137-145) mmol/L Potassium 4.9 (3.5-5.1) mmol/L Chloride 99 (98-107) mmol/L Carbon Dioxide 31 H (22-30) mmol/L Anion Gap 16.0 H (5-15) MEQ/L BUN 15 (7-17) mg/dL Creatinine 0.98 (0.52-1.04) mg/dL Estimated GFR > 60.0 ML/MIN Glucose 88 (74-106) mg/dL Lactic Acid 1.3 (0.4-2.0) Calcium 9.1 (8.4-10.2) mg/dL Magnesium 1.9 (1.6-2.3) mg/dL Total Bilirubin 0.30 (0.2-1.3) mg/dL AST 42 H (14-36) U/L ALT 37 H (0-35) U/L Alkaline Phosphatase 85 (38-126) U/L Troponin I (0.000-0.034) ng/mL NT-Pro-B Natriuret Pep 349 (0-900) pg/mL Serum Total Protein 7.5 (6.3-8.2) g/dL Albumin 4.3 (3.5-5.0) g/dL Influenza Type A Ag (NEGATIVE) Influenza Type B Ag (NEGATIVE) SARS-CoV-2 (PCR) (NEGATIVE) Group A Strep Antibody (NEGATIVE) - Progress Progress: improved Air Movement: fair Blood Culture(s) Obtained: Yes Antibiotics given: No Counseled pt/family regarding: lab results, diagnosis, need for follow-up, rad results <AIDA OSULLIVAN - Last Filed: 01/15/21 20:59> - Progress Progress Note: Patient endorsed to Dr. Osullivan at approximately 7 PM. Labs and imaging studies pending. Patient states she feels congested. She has a dry cough. No chest pain or shortness of breath. No nausea vomiting or diaphoresis. 01/15/21 20:47 EKG is normal sinus rhythm. No ischemic changes. Chest x-ray appears unchanged. Blood cultures obtained and pending. Initial troponin negative. Influenza a and B both negative as well. Stuart work-up reveals a normocytic anemia. Hemoglobin 10.3. Lactic acid is 1.3. Magnesium 1.9. 01/15/21 20:48 Strep negative. Urinalysis ordered but patient has not urinated. Patient state s she does not feel like urinating at this time. She is requesting discharge. Patient has no chest pain or shortness of breath. No nausea vomiting or diaphoresis. Blood pressure 101/59. Vital stable. 01/15/21 20:52 We will discharge patient home. Patient agrees to follow-up with her primary ca re doctor within 48 hours for reevaluation. 01/15/21 20:53 Patient plan of breathing treatment. She states she has an inhaler at home. She is breathing comfortably now O2 sats normal. The fluids infused. 01/15/21 20:57 01/15/21 20:58 (AIDA OSULLIVAN) <ROBINA NELSON - Last Filed: 01/15/21 18:38> - Departure Departure Disposition: Home Critical Care Time: No <BELTRANAIDA - Last Filed: 01/15/21 20:59> - Departure Clinical Impression: Viral syndrome, Cough, Normocytic anemia, URI (upper respiratory infection) Condition: Stable Referrals: ROSALIE MARTINEZ [Primary Care Provider] - Additional Instructions: Discharge/Care Plan RAJRAJ FRANCISCO was seen on 01/15/21 in the Emergency Room. The patient was counseled regarding Diagnosis,Lab results, Imaging studies, need for follow up and when to return to the Emergency Room. Prescriptions given: Discharge Note I have spoken with the patient and/or caregivers. I have explained the patient's condition, diagnosis and treatment plan based on the information available to me at this time. I have answered the patient's and/or caregiver's questions and addressed any concerns. The patient and/or caregivers have as good understanding of the patient's diagnosis, condition and treatment plan as can be expected at this point. The vital signs have been stable. The patient's condition is stable and appropriate for discharge from the emergency department. The patient will pursue further outpatient evaluation with the primary care physician or other designated or consulting physician as outlined in the discharge instructions. The patient and/or caregivers are agreeable to this plan of care and follow-up instructions have been explained in detail. The patient and/or caregivers have received these instruction. The patient/and or caregivers are aware that any significant change in condition or worsening of symptoms should prompt an immediate return to this or the closest emergency department or call 911.
[2021-01-15] MEDS ORDERED: Sodium Chloride 0.9% 1000 ML 1,000 ML ONE (18:47)
[2021-01-15 19:07] LABS: Absolute Neutrophil Ct (ANC) 2.98 (1.4-6.9); BASOPHIL % 0.2 % (0.0-0.4); Basophil (Absolute #) 0.01 (0-0.4); Eosinophil % 3.2 % (0.00-5.0); Eosinophil (Absolute #) 0.19 (0-0.5); Hematocrit 34.9 % (35-47); Hemoglobin 10.3 gm/dl (12.0-16.0); Lymphocyte (Absolute #) 2.12 (1.0-4.6); Lymphocytes % 36.1 % (24.0-44.0); Mean Cell Volume 92.6 fl (78-100); Mean Corpuscular Hemoglobin 27.3 pg (26-32); Mean Corpuscular Hgb Concent. 29.5 g/dl (32-36); Mean Platelet Volume 10.5 fl (7.5-11.0); Monocyte (Absolute #) 0.58 (0.0-1.3); Monocytes % 9.9 % (0.0-12.0); Neutrophil % 50.6 % (36.0-66.0); Platelet Count 224 K/mm3 (150-450); Red Blood Count 3.77 M/mm3 (4.1-5.4); Red Cell Distribution Width 14.9 % (11.5-14.0); White Blood Count 5.9 K/mm3 (4.0-10.5)
[2021-01-15 19:29] LABS: ALBUMIN 4.3 g/dL (3.5-5.0); ALKALINE PHOSPHATASE 85 U/L (38-126); BLOOD UREA NITROGEN 15 mg/dL (7-17); CHLORIDE 99 mmol/L (98-107); Calcium 9.1 mg/dL (8.4-10.2); Carbon Dioxide 31 mmol/L (22-30); Creatinine 1 0.98 mg/dL (0.52-1.04); EST GLOMERULAR FILTRATION RATE > 60.0 ML/MIN; Glucose 88 mg/dL (74-106); MAGNESIUM 1.9 mg/dL (1.6-2.3); NT PRO BNP 349 pg/mL (0-900); Potassium 4.9 mmol/L (3.5-5.1); SGOT/AST 42 U/L (14-36); SGPT/ALT 37 U/L (0-35); SODIUM 141 mmol/L (137-145); Total Protein 7.5 g/dL (6.3-8.2)
[2021-01-15 19:41] LABS: INFLUENZA A NEGATIVE (NEGATIVE); INFLUENZA B NEGATIVE (NEGATIVE)
[2021-01-15 19:42] LABS: Group A Strep NOT DETECTED (NEGATIVE)
[2021-01-15 20:03] LABS: SARS-CoV-2 Xpert Express NEGATIVE (NEGATIVE)
[2021-01-15 21:04] VITALS: BP 95/56
[2021-01-15 21:50] VITALS: PULSE 90; O2SAT 97
--- NOTE | 2021-01-16 08:49 | XRAY ---
Indication: Cough. Low blood pressure. Comparison: October 17, 2020. Portable chest slightly underinflated without focal infiltrate, consolidation, or large effusion. Heart not enlarged. Bony thorax intact again with sternotomy wires. Impression: Nonacute underinflated chest.
== END 2021-01-15 21:51 | disposition home or self-care (01) ==
LOC: ED 18:00
DX: B34.9 Viral infection, unspecified (principal); D64.9 Anemia, unspecified; J06.9 Acute upper respiratory infection, unspecified; Z79.899 Other long term (current) drug therapy; I10 Essential (primary) hypertension
CPT/HCPCS: 36000; 36415; 71045; 80053; 83605; 83735; 83880; 84484; 85025; 87040; 87077; 87400; 87651; 93005; 99284; U0003

== ENCOUNTER 2021-11-09 13:29 | Emergency (ER) | payer MEDICARE ==
[2021-11-09 13:41] VITALS: BP 110/57; PULSE 83; O2SAT 99
--- NOTE | 2021-11-09 13:54 | ERPHSYRPT ---
- History of Present Illness Time Seen by Provider: 11/09/21 13:34 Source: patient Exam Limitations: no limitations Patient Subjective Stated Complaint: Laceration Triage Nursing Assessment: Patient ambulated back to ED and transferred self to bed. Patient A+ O X 3. Patient's skin pink, warm and dry. Patient states at 0530 today she was sharpening a knife when she accidently cut herself. Patient has 2cm X 0.1 cm to left hand 2nd knuckle, well approximated. Patient complains of intermittent burning pain 5/10. Physician History: 61 years old female presented to the ER with chief complaint of left hand second metacarpophalangeal joint/knuckle area laceration while she was sharpening her kitchen knife prior to arrival. There was bleeding initially but stopped with applying pressure. Mild to moderate pain with movements at right index. No numbness or weakness in the finger distal to laceration. Timing/Duration: today, sudden, improved Quality: painful Severity: moderate Location: extremities Possible Causes: other Associated Symptoms: denies symptoms Allergies/Adverse Reactions: Iodinated Contrast Media [Iodinated Contrast Media - IV Dye] Allergy (Severe, Verified 11/09/21 13:35) Shortness of Breath anaphylaxis Penicillins Allergy (Unknown, Verified 11/09/21 13:35) Rash prednisone Adverse Reaction (Unknown, Verified 11/09/21 13:35) Swelling on prednisone now but makes sick and irritable Home Medications: ALPRAZolam 1 MG [Xanax 1 mg] 0.5 mg PO HS 01/05/17 [History] Gabapentin 300 mg PO DAILY 01/05/17 [History] Torsemide [Demadex] 20 mg PO DAILY 01/05/17 [History] Famotidine 20 mg [Pepcid 20 MG] 40 mg PO HS 06/30/18 [History] Metformin HCl Xr 500 mg [Glucophage XR 500 MG] 500 mg PO BID 06/30/18 [History] PANTOPRAZOLE 40 mg Tablet [Protonix 40MG Tablet] 40 mg PO DAILY 06/30/18 [History] Albuterol 2.5 mg/3 ml Neb [Proventil 2.5 mg/3 ml Neb] 2.5 mg IH Q4HPRN PRN 09/08/18 [History] Duloxetine HCl [Cymbalta] 60 mg PO DAILY 09/08/18 [History] Cyanocobalamin 1000 Mcg/ml [Cyanocobalamin B-12 1000 MCG/ML] 1,000 mcg IJ UD 10/18/20 [History] Fluticasone Propionate [Flonase NASAL] 1 spray NS DAILY PRN PRN 10/18/20 [History] Hydroxyzine HCl 25 mg [Atarax 25 mg] 25 mg PO TID 10/18/20 [History] Melatonin 5 mg PO HS 10/18/20 [History] Metoprolol Succinate 25 mg Xl* [Toprol-Xl 25MG Tablets] 25 mg PO BID 10/18/20 [History] Sennosides [Senokot] 8.6 mg PO UD 10/18/20 [History] Hydrocodone/Acetaminophen [Hydrocodon-Acetamin 7.5-325/15] 1 ea TID 01/15/21 [History] Trazodone HCl 150 mg PO HS 01/15/21 [History] Hx Tetanus, Diphtheria Vaccination/Date Given: Yes Hx Influenza Vaccination/Date Given: No Hx Pneumococcal Vaccination/Date Given: No Immunizations Up to Date: Yes Travel Risk - International Travel Have you traveled outside of the country in past 3 weeks: No - Coronavirus Screening Are you exhibiting any of the following symptoms?: No Close contact with a COVID-19 positive Pt in past 14-21 Days: No - Vaccine Status Have you recieved a Covid-19 vaccination: Yes [employer]: Lemon - Vaccination Dates Date of 2cond Vaccination (if applicable): ? - Review of Systems Constitutional: No Symptoms Eyes: No Symptoms Respiratory: No Symptoms Cardiac: No Symptoms Abdominal/Gastrointestinal: No Symptoms Musculoskeletal: Injury Skin: Skin Lesions Neurological: No Symptoms Hematologic/Lymphatic: No Symptoms Immunological/Allergic: No Symptoms - Past Medical History Pertinent Past Medical History: Yes Neurological History: Seizures, Stroke ENT History: Other Cardiac History: Congestive Heart Failure, High Cholesterol, Hypertension, Other Respiratory History: Asthma, CHF, COPD Endocrine Medical History: Diabetes Type II Musculoskeletal History: Degenerative Disk Disease GI Medical History: GERD History: Other Psycho-Social History: Anxiety, Depression Female Reproductive Disorders: No Pertinent History Other Medical History: Open heart surgery 2010, stent, ulcers in the L eye, chronic hip pain , covid 2020 - Past Surgical History Past Surgical History: Yes Neuro Surgical History: No Pertinent History Cardiac: CABG, Cardiac Catheterization, Cardiac Stent, Other Respiratory: No Pertinent History Gastrointestinal: Appendectomy, Bowel Surgery, Cholecystectomy, Exploratory Laparoscopy Genitourinary: No Pertinent History Musculoskeletal: Orthopedic Surgery, Other Female Surgical History: Section, Hysterectomy Other Surgical History: BOWEL RESECTIONx3 for adhesions. pins and plate placed in foot and then removed. TRIPLE AAA REPAIR WITH CABG. cervical back surgery. 2 HIP REPLACEMENTS, RT SIDE,cervical 2020 - Social History Smoking Status: Never smoker How long have you smoked: 0 Exposure to second hand smoke: No Drug Use: none Patient Lives Alone: No - Nursing Vital Signs Nursing Vital Signs: Initial Vital Signs Temperature 96.3 F 11/09/21 13:35 Pulse Rate 83 11/09/21 13:35 Respiratory Rate 18 11/09/21 13:35 Blood Pressure 110/57 11/09/21 13:35 O2 Sat by Pulse Oximetry 99 11/09/21 13:35 Pain Scale Pain Intensity 5 - Physical Exam General Appearance: no apparent distress, alert Eye Exam: PERRL/EOMI Neck Exam: normal inspection, full range of motion Respiratory Exam: normal breath sounds, lungs clear Cardiovascular Exam: regular rate/rhythm, normal heart sounds Extremity Exam: lacerations (2 cm oblique laceration at left second metacarpophalangeal joint area with intact range of motion. No visible tendon injury. Distal neurovascular well intact.), tenderness Neurologic Exam: alert, oriented x 3, cooperative Skin Exam: normal color SpO2 Interpretation: normal SpO2: 99 O2 Delivery: Room Air Procedures - Laceration/Wound Repair Left Dorsal Finger Time of Procedure: 13:51 Wound Location: Left Wound Length (cm): 2 Wound's Depth, Shape: superficial Wound Explored: clean Irrigated: Yes Hibiclens Prep: Yes Wound Repaired With: Steri-strips, Dermabond Layer Closure?: No Splint Applied?: Yes - Progress Progress: improved Progress Note: 11/09/21 13:52 Has superficial laceration. Intact distal neurovascular. Given option of's stitching versus Steri-Strips with Dermabond and she wants to go with Dermabond. Laceration repair. Splint applied. Outpatient follow-up. Do not think needs imaging or any other work-up and is stable for discharge. Counseled pt/family regarding: diagnosis, need for follow-up - Departure Departure Disposition: Home Clinical Impression: Finger laceration Qualifiers: Encounter type: initial encounter Finger: index finger Damage to nail status: without damage Foreign body presence: without foreign body Laterality: left Qualified Code(s): S61.211A - Laceration without foreign body of left index finger without damage to nail, initial encounter Condition: Stable Critical Care Time: No Referrals: ROSALIE MARTINEZ [Primary Care Provider] - Follow Up with PCP/3 days Instructions: Laceration Repair With Glue (DC) Additional Instructions: Keep it clean, take Tylenol as needed for pain. Avoid exertional activities. Follow-up with primary care for reevaluation. Return to ER for increased swelling redness, difficulty movements of finger or if having discharge/fever chills etc.
[2021-11-09] MEDS: Adacel Vial IM ONE (13:56)
== END 2021-11-09 14:06 | disposition home or self-care (01) ==
LOC: ED 13:29
DX: S61.211A Laceration without foreign body of left index finger without damage to nail, initial encounter (principal); W26.0XXA Contact with knife, initial encounter; M79.645 Pain in left finger(s); I11.0 Hypertensive heart disease with heart failure; I50.9 Heart failure, unspecified; E78.5 Hyperlipidemia, unspecified; J44.9 Chronic obstructive pulmonary disease, unspecified; E11.9 Type 2 diabetes mellitus without complications; Z86.16 Personal history of COVID-19; Z79.84 Long term (current) use of oral hypoglycemic drugs; Z79.891 Long term (current) use of opiate analgesic; Z79.899 Other long term (current) drug therapy
CPT/HCPCS: 12001; 99283

== ENCOUNTER 2024-05-10 15:40 | Observation (INO) | payer MEDICARE ==
--- NOTE | 2024-05-10 16:46 | ERPHSYRPT ---
- History of Present Illness Time Seen by Provider: 05/10/24 15:44 Source: patient Exam Limitations: no limitations Patient Subjective Stated Complaint: Pt states "I was in [place] and was not feeling well so I went to a clinic and they took blood and called me and told me I was in CHF and to get to an emergency room" Triage Nursing Assessment: Pt presented alert and oriented X 3, skin pwd. Pt ambulates with an upright steady gait, able to speak in clear full sentences. Pt resting comfortably on the bed. PT legs swollen bilat. Physician History: 64 years old female with history of congestive heart failure on torsemide presented in the ER with bilateral lower extremity swelling. Patient gained 18 pounds in 5 days. Reports pressure in the legs and also in abdominal wall and it seems like she is having some difficulty breathing. Denies any chest pain, cough, fever or chills. Patient reports having similar symptoms in the past with CHF exacerbation. Denies any abdominal pain and nausea otherwise. Patient reports she was traveling and was seen at an ER in [place] and is told that she has CHF exacerbation. Allergies/Adverse Reactions: Iodinated Contrast Media [Iodinated Contrast Media - IV Dye] Allergy (Severe, Verified 11/09/21 13:35) Shortness of Breath anaphylaxis Penicillins Allergy (Unknown, Verified 11/09/21 13:35) Rash prednisone Adverse Reaction (Unknown, Verified 11/09/21 13:35) Swelling on prednisone now but makes sick and irritable Home Medications: Gabapentin 1,600 mg PO DAILY 01/05/17 [History] Torsemide [Demadex] 20 mg PO DAILY 01/05/17 [History] Famotidine 20 mg [Pepcid 20 MG] 40 mg PO HS 06/30/18 [History] PANTOPRAZOLE 40 mg Tablet [Protonix 40MG Tablet] 40 mg PO DAILY 06/30/18 [History] Duloxetine HCl [Cymbalta] 60 mg PO DAILY 09/08/18 [History] Metoprolol Succinate 25 mg Xl* [Toprol-Xl 25MG Tablets] 25 mg PO BID 10/18/20 [History] Sennosides [Senokot] 8.6 mg PO UD PRN 10/18/20 [History] Aspirin EC 81 mg [Ecotrin 81 mg] 81 mg PO DAILY 05/10/24 [History] Atorvastatin Calcium [Lipitor] 80 mg PO QHS 05/10/24 [History] PARoxetine HCL [Paxil] 40 mg PO DAILY 05/10/24 [History] Semaglutide [Ozempic] 0.5 mg SQ WEEKLY 05/10/24 [History] Venlafaxine HCl ER 75 mg [Effexor XR 75 MG] 75 mg PO DAILY 05/10/24 [History] Gabapentin 800 mg PO QHS 05/11/24 [History] Trazodone HCl 100 mg PO QHS 05/11/24 [History] Hx Tetanus, Diphtheria Vaccination/Date Given: Yes Hx Influenza Vaccination/Date Given: No Hx Pneumococcal Vaccination/Date Given: No Immunizations Up to Date: No Travel Risk - International Travel Have you traveled outside of the country in past 3 weeks: No - Emerging Infectious Disease Are you exhibiting symptoms associated with any current EIDs: No - Review of Systems Constitutional: No Symptoms Eyes: No Symptoms Ears, Nose, & Throat: No Symptoms Respiratory: Dyspnea Cardiac: Edema Abdominal/Gastrointestinal: No Symptoms Genitourinary Symptoms: No Symptoms Musculoskeletal: Arthralgias Skin: No Symptoms Neurological: No Symptoms Psychological: No Symptoms - Past Medical History Pertinent Past Medical History: Yes Neurological History: Seizures, Stroke ENT History: Other Cardiac History: Congestive Heart Failure, High Cholesterol, Hypertension, Other Respiratory History: Asthma, CHF, COPD Endocrine Medical History: Diabetes Type II Musculoskeletal History: Degenerative Disk Disease GI Medical History: GERD History: Other Psycho-Social History: Anxiety, Depression Female Reproductive Disorders: No Pertinent History Other Medical History: Open heart surgery 2009, stent, ulcers in the L eye, chronic hip pain , covid 2020 - Past Surgical History Past Surgical History: Yes Neuro Surgical History: No Pertinent History Cardiac: CABG, Cardiac Catheterization, Cardiac Stent, Other Respiratory: No Pertinent History Gastrointestinal: Appendectomy, Bowel Surgery, Cholecystectomy, Exploratory Laparoscopy Genitourinary: No Pertinent History Musculoskeletal: Orthopedic Surgery, Other Female Surgical History: Section, Hysterectomy Other Surgical History: BOWEL RESECTIONx3 for adhesions. pins and plate placed in foot and then removed. TRIPLE AAA REPAIR WITH CABG. cervical back surgery. 2 HIP REPLACEMENTS, RT SIDE,cervical 2020 - Social History Smoking Status: Never smoker How long have you smoked: 0 Exposure to second hand smoke: No Drug Use: none Patient Lives Alone: No - Social Determinants of Health Will the patient participate in the screening: Yes Do you worry about a steady place to live?: No Do you have any problems with any of the following?: No known problems In the past 12 months,have you had to go without utilities?: No Transportation Issues: No Has anyone in your support network made you feel unsafe?: No Have you or anyone in your house had to go without enough: No - Nursing Vital Signs Nursing Vital Signs: Initial Vital Signs Temperature 98.2 F 05/10/24 15:44 Pulse Rate 63 05/10/24 15:44 Respiratory Rate 20 05/10/24 15:44 Blood Pressure 145/77 05/10/24 15:44 O2 Sat by Pulse Oximetry 95 05/10/24 15:44 Pain Scale Pain Intensity 4 - Physical Exam General Appearance: no apparent distress, alert Eye Exam: PERRL/EOMI Ears, Nose, Throat Exam: hearing grossly normal, normal ENT inspection, normal pharynx Neck Exam: normal inspection, non-tender, supple, full range of motion Respiratory Exam: normal breath sounds, lungs clear Cardiovascular/Chest Exam: normal heart sounds, regular rate/rhythm, edema (2+ pitting edema bilateral) Abdominal/Gastrointestinal Exam: soft, normal bowel sounds, No tenderness Extremity Exam: non-tender, normal range of motion, normal inspection Neurologic Exam: alert, oriented x 3, cooperative, distribution spec II-XII nml as tested, normal mood/affect, nml cerebellar function, nml station & gait, sensation nml, No motor deficits Skin Exam: normal color SpO2 Interpretation: normal SpO2: 95 O2 Delivery: Room Air - Course EKG Interpreted by Me: RATE (63), Sinus Rhythm, NORMAL AXIS, prolonged QT inter dorian, Other (T wave flattening inferior leads) Ordered Tests: Active Orders 24 hr Category Date Time Status TROPONIN Q4H Lab 05/11/24 01:40 Completed Medication Summary Generic Name Dose Route Start Last Admin Trade Name Freq PRN Reason Stop Dose Admin Acetaminophen 325 mg 05/10/24 20:43 Acetaminophen 325 Mg Tablet PO 06/09/24 20:42 Q4H PRN PRN PAIN, FEVER, HEADACHE Aspirin 81 mg 05/11/24 10:00 05/11/24 10:17 Aspirin 81 Mg Tablet.Ec PO 06/10/24 09:59 81 mg DAILY LITO Administration Docusate Sodium 100 mg 05/10/24 20:43 Docusate Sodium 100 Mg Capsule PO 06/09/24 20:42 BIDPRN PRN CONSTIPATION Duloxetine HCl 60 mg 05/11/24 10:00 05/11/24 10:23 Duloxetine Hcl 30 Mg Cap PO 06/10/24 09:59 60 mg DAILY LITO Administration Enoxaparin Sodium 30 mg 05/11/24 10:00 05/11/24 10:17 Enoxaparin Sodium 30 Mg/0.3 Ml Syringe SQ 06/10/24 09:59 30 mg DAILY LITO Administration Famotidine 40 mg 05/10/24 22:00 05/11/24 21:21 Famotidine 20 Mg Tablet PO 06/09/24 21:59 40 mg HS LITO Administration Furosemide 40 mg 05/10/24 20:45 05/11/24 19:48 Furosemide 40 Mg/4 Ml Vial IV 06/09/24 20:44 40 mg Q8H LITO Administration Gabapentin 1,600 mg 05/11/24 10:00 05/11/24 10:23 Gabapentin 400 Mg Capsule PO 06/10/24 09:59 1,600 mg DAILY LITO Administration Gabapentin 800 mg 05/11/24 22:00 05/11/24 21:21 Gabapentin 400 Mg Capsule PO 06/10/24 21:59 800 mg HS LITO Administration Insulin Human Lispro 0 unit 05/11/24 15:40 Insulin Lispro 1 Unit SQ 06/10/24 15:39 UD PRN HYPERGLYCEMIA Metoprolol Succinate 25 mg 05/10/24 22:00 05/11/24 21:21 Metoprolol Succinate 25 Mg Xl Tab PO 06/09/24 21:59 25 mg BID LITO Administration Miscellaneous Information 0 each 05/11/24 09:00 Medication Intervention 1 Each Each 06/10/24 08:59 .RN TO CHECK WITH PATIENT LITO Ondansetron HCl 4 mg 05/10/24 20:43 Ondansetron Hcl 4 Mg/2 Ml Vial IV 06/09/24 20:42 Q6H PRN PRN NAUSEA/VOMITING Oxycodone/Acetaminophen 1 tab 05/10/24 20:55 05/11/24 15:23 Oxycodone Hcl/Apap 5 Mg/325 Mg Tablet PO 05/15/24 20:54 1 tab Q4H PRN PRN Administration PAIN Pantoprazole Sodium 40 mg 05/11/24 10:00 05/11/24 10:17 Protonix (Pantoprazole) 40 Mg Tablet PO 06/10/24 09:59 40 mg DAILY LITO Administration Paroxetine HCl 40 mg 05/11/24 10:00 05/11/24 10:23 Paroxetine Hcl 20 Mg Tablet PO 06/10/24 09:59 40 mg DAILY LITO Administration Polyethylene Glycol 17 gm 05/12/24 13:28 Polyethylene Glycol 3350 17 Gm Packet PO 05/12/24 13:29 STAT ONE Potassium Chloride 10 meq 05/11/24 10:00 05/11/24 10:17 Potassium Chloride Tab 10 Meq Tab PO 06/10/24 09:59 10 meq DAILY LITO Administration Senna 8.6 mg 05/10/24 20:45 Senna 8.6 Mg Tablet PO 06/09/24 20:44 UD LITO Simvastatin 40 mg 05/11/24 22:00 05/11/24 21:21 Simvastatin 20 Mg Tablet PO 06/10/24 21:59 40 mg HS LITO Administration Trazodone HCl 150 mg 05/10/24 22:00 05/11/24 21:22 Trazodone Hcl 150 Mg Tablet PO 06/09/24 21:59 150 mg HS LITO Administration Venlafaxine HCl 75 mg 05/11/24 10:00 05/11/24 10:17 Venlafaxine Hcl 75 Mg Extended Release Capsule PO 06/10/24 09:59 75 mg DAILY LITO Administration Discontinued Medications Generic Name Dose Route Start Last Admin Trade Name Freq PRN Reason Stop Dose Admin Furosemide 40 mg 05/10/24 16:20 05/10/24 17:19 Furosemide 40 Mg/4 Ml Vial IV 05/10/24 16:21 40 mg STAT ONE Administration Furosemide Confirm 05/10/24 17:17 Furosemide 40 Mg/4 Ml Vial Administered 05/10/24 17:18 Dose 40 mg .ROUTE .STK-MED ONE Potassium Chloride 20 meq 05/11/24 07:45 05/11/24 19:47 Potassium Chloride Tab 10 Meq Tab PO 05/11/24 13:46 20 meq Q2H LITO Administration Potassium Chloride Confirm 05/11/24 17:53 Potassium Chloride Tab 10 Meq Tab Administered 05/11/24 17:54 Dose 20 meq .ROUTE .STK-MED ONE Potassium Chloride Confirm 05/11/24 19:44 Potassium Chloride Tab 10 Meq Tab Administered 05/11/24 19:45 Dose 20 meq .ROUTE .STK-MED ONE Lab/Rad Data: Laboratory Result Diagrams 05/10/24 16:41 05/10/24 16:41 Laboratory Results 05/10/24 05/10/24 05/10/24 Range/Units 19:48 18:56 16:41 WBC (3.98-10.04) x10^3/uL RBC (3.93-5.22) x10^6/uL Hgb (11.2-15.7) g/dL Hct (34.1-44.9) % MCV (79.4-94.8) fL MCH (25.6-32.2) pg MCHC (32.2-35.5) g/dL RDW (11.7-14.4) % Plt Count (182-369) x10^3/uL MPV (9.4-12.3) fL Gran % (34.0-71.1) % Immature Gran % (Auto) (0.001-0.429) % Nucleat RBC Rel Count (0.00-0.2) % Eos # (Auto) (0.04-0.36) x10^3/uL Immature Gran # (Auto) (0.001-0.031) x10^3u/L Absolute Lymphs (auto) (1.18-3.74) x10^3/uL Absolute Monos (auto) (0.24-0.86) x10^3/uL Absolute Nucleated RBC (0.00-0.012) x10^3u/L Lymphocytes % (19.3-51.7) % Monocytes % (4.7-12.5) % Eosinophils % (0.7-5.8) % Basophils % (0.1-1.2) % Absolute Granulocytes (1.56-6.13) x10^3/uL Basophils # (0.01-0.08) x10^3/uL Sodium (135-145) mmol/L Potassium (3.5-5.1) mmol/L Chloride (98-107) mmol/L Carbon Dioxide (22-30) mmol/L Anion Gap (5-15) MEQ/L BUN (7-17) mg/dL Creatinine (0.52-1.04) mg/dL Estimated GFR ML/MIN Glucose (74-106) mg/dL Calcium (8.4-10.2) mg/dL Magnesium (1.6-2.3) mg/dL Total Bilirubin (0.2-1.3) mg/dL AST (14-36) U/L ALT (0-35) U/L Alkaline Phosphatase (38-126) U/L Troponin I < 0.012 < 0.012 (0.000-0.033) ng/mL NT-Pro-B Natriuret Pep (<300) pg/mL Serum Total Protein (6.3-8.2) g/dL Albumin (3.5-5.0) g/dL Urine Color Yellow (Yellow) Urine Appearance Clear (Clear) Urine pH 5.5 (4.6-8.0) Ur Specific [place] 1.010 (1.005-1.030) Urine Protein Negative (Negative) Urine Glucose (UA) Negative (Negative) mg/dL Urine Ketones Negative (Negative) Urine Blood Negative (Negative) Urine Nitrite Negative (Negative) Urine Bilirubin Negative (Negative) Urine Urobilinogen 0.2 (0.2) mg/dL Ur Leukocyte Esterase Negative (Negative) U Hyaline Cast (Auto) NONE SEEN (0-2) /LPF Urine Microscopic RBC 0-2 (0-5) /HPF Urine Microscopic WBC 3-5 (0-5) /HPF Ur Epithelial Cells None Seen (None Seen) /HPF Urine Bacteria None Seen (None Seen) /HPF Urine Culture Reflexed NO (NO) 05/10/24 05/10/24 Range/Units 16:41 16:41 WBC 5.7 (3.98-10.04) x10^3/uL RBC 2.85 L (3.93-5.22) x10^6/uL Hgb 8.7 L (11.2-15.7) g/dL Hct 28.4 L (34.1-44.9) % MCV 99.6 H (79.4-94.8) fL MCH 30.5 (25.6-32.2) pg MCHC 30.6 L (32.2-35.5) g/dL RDW 12.4 (11.7-14.4) % Plt Count 157 L (182-369) x10^3/uL MPV 11.4 (9.4-12.3) fL Gran % 61.3 (34.0-71.1) % Immature Gran % (Auto) 0.3 (0.001-0.429) % Nucleat RBC Rel Count 0.0 (0.00-0.2) % Eos # (Auto) 0.15 (0.04-0.36) x10^3/uL Immature Gran # (Auto) 0.02 (0.001-0.031) x10^3u/L Absolute Lymphs (auto) 1.50 (1.18-3.74) x10^3/uL Absolute Monos (auto) 0.54 (0.24-0.86) x10^3/uL Absolute Nucleated RBC 0.00 (0.00-0.012) x10^3u/L Lymphocytes % 26.1 (19.3-51.7) % Monocytes % 9.4 (4.7-12.5) % Eosinophils % 2.6 (0.7-5.8) % Basophils % 0.3 (0.1-1.2) % Absolute Granulocytes 3.51 (1.56-6.13) x10^3/uL Basophils # 0.02 (0.01-0.08) x10^3/uL Sodium 138 (135-145) mmol/L Potassium 4.1 (3.5-5.1) mmol/L Chloride 103 (98-107) mmol/L Carbon Dioxide 28 (22-30) mmol/L Anion Gap 12.2 (5-15) MEQ/L BUN 25 H (7-17) mg/dL Creatinine 1.46 H (0.52-1.04) mg/dL Estimated GFR 39.5 ML/MIN Glucose 111 H (74-106) mg/dL Calcium 8.8 (8.4-10.2) mg/dL Magnesium 1.7 (1.6-2.3) mg/dL Total Bilirubin 0.60 (0.2-1.3) mg/dL AST 22 (14-36) U/L ALT 15 (0-35) U/L Alkaline Phosphatase 79 (38-126) U/L Troponin I (0.000-0.033) ng/mL NT-Pro-B Natriuret Pep 2940 (<300) pg/mL Serum Total Protein 6.8 (6.3-8.2) g/dL Albumin 3.9 (3.5-5.0) g/dL Urine Color (Yellow) Urine Appearance (Clear) Urine pH (4.6-8.0) Ur Specific [place] (1.005-1.030) Urine Protein (Negative) Urine Glucose (UA) (Negative) mg/dL Urine Ketones (Negative) Urine Blood (Negative) Urine Nitrite (Negative) Urine Bilirubin (Negative) Urine Urobilinogen (0.2) mg/dL Ur Leukocyte Esterase (Negative) U Hyaline Cast (Auto) (0-2) /LPF Urine Microscopic RBC (0-5) /HPF Urine Microscopic WBC (0-5) /HPF Ur Epithelial Cells (None Seen) /HPF Urine Bacteria (None Seen) /HPF Urine Culture Reflexed (NO) - Progress Progress: re-examined Air Movement: good Progress Note: 05/10/24 18:30 64 years old is evaluated for increasing bilateral lower extremity swelling. EKG is no acute ischemic changes, chest x-ray negative. Negative initial troponin. Chemistries fairly unremarkable except for mildly elevated crea tinine. BNP in 2900s. Has CHF exacerbation, given 40 mg IV Lasix, discussed with Dr. Gonsalez and patient is being admitted. Blood Culture(s) Obtained: No Antibiotics given: No Discussed with .: Bob Will see patient in: hospital (observation) Counseled pt/family regarding: lab results, diagnosis, rad results Medical Desision Making - Independent Historian Additional History obtained from: Spouse - Discussion of managment Care discussed with:: hospitalist Reviewed:: Test results Agreed on:: Treatment plan, place in obs Will see patient: in hospital - Diagnostic Testing Diagnostic test were ordered, analyzed, and reviewed by me: Yes Radiological Interpretation: Reviewed by me - Risk of complications The pt has a mod risk of morbidity or mortality based on: Need for prescription drug management The pt has a high risk of morbidity or mortality based on: Decision regarding hospitilization or escalation of hosp level of care - Departure Departure Disposition: Observation Clinical Impression: Acute exacerbation of CHF (congestive heart failure) Condition: Stable Critical Care Time: No
[2024-05-10 16:49] LABS: Absolute Neutrophil Ct (ANC) 3.51 x10^3/uL (1.56-6.13); BASOPHIL % 0.3 % (0.1-1.2); Basophil (Absolute #) 0.02 x10^3/uL (0.01-0.08); Eosinophil % 2.6 % (0.7-5.8); Eosinophil (Absolute #) 0.15 x10^3/uL (0.04-0.36); Hematocrit 28.4 % (34.1-44.9); Hemoglobin 8.7 g/dL (11.2-15.7); IMMATURE GRAN # 0.02 x10^3u/L (0.001-0.031); IMMATURE GRAN % 0.3 % (0.001-0.429); Lymphocytes % 26.1 % (19.3-51.7); Mean Cell Volume 99.6 fL (79.4-94.8); Mean Corpuscular Hemoglobin 30.5 pg (25.6-32.2); Mean Corpuscular Hgb Concent. 30.6 g/dL (32.2-35.5); Mean Platelet Volume 11.4 fL (9.4-12.3); Monocyte (Absolute #) 0.54 x10^3/uL (0.24-0.86); Monocytes % 9.4 % (4.7-12.5); Neutrophil % 61.3 % (34.0-71.1); Platelet Count 157 x10^3/uL (182-369); Red Blood Count 2.85 x10^6/uL (3.93-5.22); Red Cell Distribution Width 12.4 % (11.7-14.4); White Blood Count 5.7 x10^3/uL (3.98-10.04)
--- NOTE | 2024-05-10 16:53 | XRAY ---
Indication: Short of breath. CHF. Comparison: January 07, 2021 Portable chest inflated and remains clear. Heart not enlarged for AP portable technique. Bony thorax intact again with osteopenia, mild degenerative changes, cervical fusion hardware, and sternotomy wires. Impression: Continued nonacute chest with chronic bony features.
[2024-05-10 17:09] LABS: ALBUMIN 3.9 g/dL (3.5-5.0); ANION GAP 12.2 MEQ/L (5-15); BILIRUBIN,TOTAL 0.6 mg/dL (0.2-1.3); Calcium 8.8 mg/dL (8.4-10.2); Creatinine 1 1.46 mg/dL (0.52-1.04); EST GLOMERULAR FILTRATION RATE 39.5 ML/MIN; MAGNESIUM 1.7 mg/dL (1.6-2.3); Potassium 4.1 mmol/L (3.5-5.1); Total Protein 6.8 g/dL (6.3-8.2)
[2024-05-10] MEDS ORDERED: Lasix 40 MG/4 ML ONE (17:17)
[2024-05-10] MEDS: Lasix 40 MG/4 ML IV ONE (17:19)
[2024-05-10 19:24] LABS: Appearance Clear (Clear); Bacteria None Seen /HPF (None Seen); Bilirubin Negative (Negative); Blood Negative (Negative); Epithelial Cells None Seen /HPF (None Seen); Glucose, Urine Negative (Negative); Hyaline Casts NONE SEEN /LPF (0-2); Ketones Negative (Negative); Leukocyte Esterase Negative (Negative); Nitrite Negative (Negative); Ph 5.5 (4.6-8.0); Protein,Urine Dip Negative (Negative); RBC 0-2 /HPF (0-5); Urobilinogen 0.2 mg/dL (0.2)
[2024-05-10] MEDS ORDERED: TYLENOL 325 MG PO PRN (20:43)
[2024-05-10] MEDS ORDERED: SENOKOT 8.6 MG PO SCH (20:45)
[2024-05-10] MEDS ORDERED: NON-FORMULARY ITEM (Semaglutide [Ozempic] 1 MG/0.75 ML Pen.Injctr) SQ SCH (20:45)
[2024-05-10] MEDS: PERCOCET TABLET 5/325MG PO PRN (21:05)
--- NOTE | 2024-05-10 21:05 | PCM.HP ---
History of Present Illness - Chief Complaint Chief Complaint: CHF exacerbation Date: 05/10/24 History of Present Illness: is a 64 year old female with a history of CHF (last ECHO was 2 years ago) who presented to the ED with bilateral lower extremity swelling, weight gain (18 pounds in 5 days), abdominal distension, and abdominal pain. Reports pressure in the legs and also in abdominal wall and it seems like she is having some difficulty breathing. Denies any chest pain, cough, fever or chills. Patient reports having similar symptoms in the past with CHF exacerbation. Denies any abdominal pain and nausea otherwise. Patient reports she was traveling and was seen at an ER in [place] and is told that she has CHF exacerbation. At the time of my evaluation, she is accompanied by her at bedside. - Review of Systems Constitutional: No Symptoms Eyes: No Symptoms Ears, Nose, & Throat: No Symptoms Respiratory: Short Of Breath Cardiac: Edema Abdominal/Gastrointestinal: Abdominal Pain Genitourinary Symptoms: No Symptoms Musculoskeletal: No Symptoms Skin: No Symptoms Neurological: No Symptoms Psychological: No Symptoms Endocrine: No Symptoms Hematologic/Lymphatic: No Symptoms Immunological/Allergic: No Symptoms All Other Systems: Reviewed and Negative Medications & Allergies Home Medications: Home Medication List Gabapentin 1,600 mg PO DAILY 01/05/17 [History Confirmed 05/10/24] Torsemide [Demadex] 20 mg PO DAILY 01/05/17 [History Confirmed 05/10/24] Famotidine 20 mg [Pepcid 20 MG] 40 mg PO HS 06/30/18 [History Confirmed 05/10/24] PANTOPRAZOLE 40 mg Tablet [Protonix 40MG Tablet] 40 mg PO DAILY 06/30/18 [History Confirmed 05/10/24] Duloxetine HCl [Cymbalta] 60 mg PO DAILY 09/08/18 [History Confirmed 05/10/24] Metoprolol Succinate 25 mg Xl* [Toprol-Xl 25MG Tablets] 25 mg PO BID 10/18/20 [History Confirmed 05/10/24] Potassium Chloride Tab* [Klor Con] 10 meq PO DAILY 30 Days #30 tab 10/18/20 [Rx Confirmed 05/10/24] Sennosides [Senokot] 8.6 mg PO UD 10/18/20 [History Confirmed 05/10/24] Trazodone HCl 150 mg PO HS 01/15/21 [History Confirmed 05/10/24] Aspirin EC 81 mg [Ecotrin 81 mg] 81 mg PO DAILY 05/10/24 [History Confirmed 05/10/24] Atorvastatin Calcium [Lipitor] 80 mg PO DAILY 05/10/24 [History Confirmed 05/10/24] PARoxetine HCL [Paxil] 40 mg PO DAILY 05/10/24 [History Confirmed 05/10/24] Semaglutide [Ozempic] 0.5 mg SQ WEEKLY 05/10/24 [History Confirmed 05/10/24] Venlafaxine HCl ER 75 mg [Effexor XR 75 MG] 75 mg PO DAILY 05/10/24 [History Confirmed 05/10/24] Allergies/Adverse Reactions: Allergies Allergy/AdvReac Type Severity Reaction Status Date / Time Iodinated Contrast Media Allergy Severe Shortness Verified 11/09/21 13:35 [Iodinated Contrast Media - of Breath IV Dye] Penicillins Allergy Unknown Rash Verified 11/09/21 13:35 prednisone AdvReac Unknown Swelling Verified 11/09/21 13:35 - Past Medical History Past Medical History: Yes Neurological History: Seizures, Stroke ENT History: Other Cardiac History: Congestive Heart Failure, High Cholesterol, Hypertension, Other Respiratory History: Asthma, CHF, COPD Endocrine Medical History: Diabetes Type II Musculoskelatal History: Degenerative Disk Disease GI Medical History: GERD History: Other Pyscho-Social History: Anxiety, Depression Reproductive Disorders: No Pertinent History Comment: Open heart surgery 2009, stent, ulcers in the L eye, chronic hip pain , covid 2020 - Past Surgical History Past Surgical History: Yes Neuro Surgical History: No Pertinent History Cardiac History: CABG, Cardiac Catheterization, Cardiac Stent, Other Respiratory Surgery: No Pertinent History GI Surgical History: Appendectomy, Bowel Surgery, Cholecystectomy, Exploratory Laparoscopy Genitourinary Surgical Hx: No Pertinent History Musculskeletal Surgical Hx: Orthopedic Surgery, Other Female Surgical History: Section, Hysterectomy Other Surgical History: BOWEL RESECTIONx3 for adhesions. pins and plate placed in foot and then removed. TRIPLE AAA REPAIR WITH CABG. cervical back surgery. 2 HIP REPLACEMENTS, RT SIDE,cervical 2020. right side femur has clamps around. 2 artificial vertebrates back of neck Family History: No family history of early CAD or sudden cardiac is reported. - Social History Smoking Status: Never smoker How long have you smoked: 0 Exposure to second hand smoke: No Alcohol: None Drug Use: none - Social Determinants of Health Will the patient participate in the screening: Yes Do you worry about a steady place to live?: No Do you have any problems with any of the following?: No known problems In the past 12 months,have you had to go without utilities?: No Have you or anyone in your house had to go without enough: No Transportation Issues: No Has anyone in your support network made you feel unsafe?: No - Physical Exam Vital Signs: Vital Signs - 24 hr Temp Pulse Resp BP BP Pulse Ox 05/10/24 18:32 95 05/10/24 18:30 108/63 05/10/24 18:15 59 L 15 109/75 94 L 05/10/24 18:06 60 17 111/61 95 05/10/24 18:04 61 19 58/47 93 L 05/10/24 16:30 68 125/80 95 05/10/24 16:20 96 05/10/24 16:18 96 05/10/24 16:00 130/83 97 05/10/24 15:45 145/77 92 L 05/10/24 15:44 98.2 F 63 20 145/77 95 General Appearance: no apparent distress, alert Neurologic Exam: alert, oriented x 3, cooperative, syrup filterer II-XII nml as tested, normal mood/affect, nml cerebellar function Eye Exam: PERRL/EOMI, eyes nml inspection Ears, Nose, Throat Exam: normal ENT inspection Neck Exam: normal inspection, non-tender, supple, full range of motion Respiratory Exam: normal breath sounds, lungs clear Cardiovascular Exam: regular rate/rhythm, normal heart sounds, edema Gastrointestinal/Abdomen Exam: soft, normal bowel sounds Back Exam: normal range of motion Extremity Exam: normal range of motion, pedal edema, swelling Skin Exam: normal color Results - Labs Lab/Micro Results: Lab Results-Last 24 Hours 05/10/24 05/10/24 05/10/24 Range/Units 16:41 16:41 16:41 WBC 5.7 (3.98-10.04) x10^3/uL RBC 2.85 L (3.93-5.22) x10^6/uL Hgb 8.7 L (11.2-15.7) g/dL Hct 28.4 L (34.1-44.9) % MCV 99.6 H (79.4-94.8) fL MCH 30.5 (25.6-32.2) pg MCHC 30.6 L (32.2-35.5) g/dL RDW 12.4 (11.7-14.4) % Plt Count 157 L (182-369) x10^3/uL MPV 11.4 (9.4-12.3) fL Gran % 61.3 (34.0-71.1) % Immature Gran % (Auto) 0.3 (0.001-0.429) % Nucleat RBC Rel Count 0.0 (0.00-0.2) % Eos # (Auto) 0.15 (0.04-0.36) x10^3/uL Immature Gran # (Auto) 0.02 (0.001-0.031) x10^3u/L Absolute Lymphs (auto) 1.50 (1.18-3.74) x10^3/uL Absolute Monos (auto) 0.54 (0.24-0.86) x10^3/uL Absolute Nucleated RBC 0.00 (0.00-0.012) x10^3u/L Lymphocytes % 26.1 (19.3-51.7) % Monocytes % 9.4 (4.7-12.5) % Eosinophils % 2.6 (0.7-5.8) % Basophils % 0.3 (0.1-1.2) % Absolute Granulocytes 3.51 (1.56-6.13) x10^3/uL Basophils # 0.02 (0.01-0.08) x10^3/uL Sodium 138 (135-145) mmol/L Potassium 4.1 (3.5-5.1) mmol/L Chloride 103 (98-107) mmol/L Carbon Dioxide 28 (22-30) mmol/L Anion Gap 12.2 (5-15) MEQ/L BUN 25 H (7-17) mg/dL Creatinine 1.46 H (0.52-1.04) mg/dL Estimated GFR 39.5 ML/MIN Glucose 111 H (74-106) mg/dL Calcium 8.8 (8.4-10.2) mg/dL Magnesium 1.7 (1.6-2.3) mg/dL Total Bilirubin 0.60 (0.2-1.3) mg/dL AST 22 (14-36) U/L ALT 15 (0-35) U/L Alkaline Phosphatase 79 (38-126) U/L Troponin I < 0.012 (0.000-0.033) ng/mL NT-Pro-B Natriuret Pep 2940 (<300) pg/mL Serum Total Protein 6.8 (6.3-8.2) g/dL Albumin 3.9 (3.5-5.0) g/dL Urine Color (Yellow) Urine Appearance (Clear) Urine pH (4.6-8.0) Ur Specific [place] (1.005-1.030) Urine Protein (Negative) Urine Glucose (UA) (Negative) mg/dL Urine Ketones (Negative) Urine Blood (Negative) Urine Nitrite (Negative) Urine Bilirubin (Negative) Urine Urobilinogen (0.2) mg/dL Ur Leukocyte Esterase (Negative) U Hyaline Cast (Auto) (0-2) /LPF Urine Microscopic RBC (0-5) /HPF Urine Microscopic WBC (0-5) /HPF Ur Epithelial Cells (None Seen) /HPF Urine Bacteria (None Seen) /HPF Urine Culture Reflexed (NO) 05/10/24 05/10/24 Range/Units 18:56 19:48 WBC (3.98-10.04) x10^3/uL RBC (3.93-5.22) x10^6/uL Hgb (11.2-15.7) g/dL Hct (34.1-44.9) % MCV (79.4-94.8) fL MCH (25.6-32.2) pg MCHC (32.2-35.5) g/dL RDW (11.7-14.4) % Plt Count (182-369) x10^3/uL MPV (9.4-12.3) fL Gran % (34.0-71.1) % Immature Gran % (Auto) (0.001-0.429) % Nucleat RBC Rel Count (0.00-0.2) % Eos # (Auto) (0.04-0.36) x10^3/uL Immature Gran # (Auto) (0.001-0.031) x10^3u/L Absolute Lymphs (auto) (1.18-3.74) x10^3/uL Absolute Monos (auto) (0.24-0.86) x10^3/uL Absolute Nucleated RBC (0.00-0.012) x10^3u/L Lymphocytes % (19.3-51.7) % Monocytes % (4.7-12.5) % Eosinophils % (0.7-5.8) % Basophils % (0.1-1.2) % Absolute Granulocytes (1.56-6.13) x10^3/uL Basophils # (0.01-0.08) x10^3/uL Sodium (135-145) mmol/L Potassium (3.5-5.1) mmol/L Chloride (98-107) mmol/L Carbon Dioxide (22-30) mmol/L Anion Gap (5-15) MEQ/L BUN (7-17) mg/dL Creatinine (0.52-1.04) mg/dL Estimated GFR ML/MIN Glucose (74-106) mg/dL Calcium (8.4-10.2) mg/dL Magnesium (1.6-2.3) mg/dL Total Bilirubin (0.2-1.3) mg/dL AST (14-36) U/L ALT (0-35) U/L Alkaline Phosphatase (38-126) U/L Troponin I < 0.012 (0.000-0.033) ng/mL NT-Pro-B Natriuret Pep (<300) pg/mL Serum Total Protein (6.3-8.2) g/dL Albumin (3.5-5.0) g/dL Urine Color Yellow (Yellow) Urine Appearance Clear (Clear) Urine pH 5.5 (4.6-8.0) Ur Specific [place] 1.010 (1.005-1.030) Urine Protein Negative (Negative) Urine Glucose (UA) Negative (Negative) mg/dL Urine Ketones Negative (Negative) Urine Blood Negative (Negative) Urine Nitrite Negative (Negative) Urine Bilirubin Negative (Negative) Urine Urobilinogen 0.2 (0.2) mg/dL Ur Leukocyte Esterase Negative (Negative) U Hyaline Cast (Auto) NONE SEEN (0-2) /LPF Urine Microscopic RBC 0-2 (0-5) /HPF Urine Microscopic WBC 3-5 (0-5) /HPF Ur Epithelial Cells None Seen (None Seen) /HPF Urine Bacteria None Seen (None Seen) /HPF Urine Culture Reflexed NO (NO) - Radiology Impressions Radiology Exams & Impressions: Radiology Procedures Category Date Time Status CHEST 1 VIEW (PORTABLE) Stat Exams 05/10/24 16:20 Completed ECHO W/2D AND DOPPLER [US] Routine Exams 05/10/24 20:44 Ordered Assessment/Plan (1) Chronic congestive heart failure Current Visit: No Status: Chronic Assessment & Plan: 18 pound weight gain. IV Lasix. Monitor in/out, urine output, and weight. Monitor BP and O2 requirement. PT mobilization. Code(s): I50.9 - HEART FAILURE, UNSPECIFIED (2) SOB (shortness of breath) Current Visit: No Status: Acute Onset Date: ~06/30/18 Assessment & Plan: No hypoxia. Monitor sats with diuresis. Abdominal distension likely due to anasarca. Analgesia. Code(s): R06.02 - SHORTNESS OF BREATH (3) Coronary artery disease Current Visit: No Status: Chronic Assessment & Plan: No chest pain. Monitor on tele and continue home regimen. Code(s): I25.10 - ATHSCL HEART DISEASE OF [place] CORONARY ARTERY W/O ANG PCTRS (4) Hypertension Current Visit: No Status: Chronic Assessment & Plan: Follow BP on home regimen. Code(s): I10 - ESSENTIAL (PRIMARY) HYPERTENSION Telemedicine Encounter - Telemedicine Encounter Telemedicine Encounter: "The entirety of this encounter was performed via Telemedicine" This visit was performed using real-time audio and video connection between my location and thepatients locationwith the assistance of a surrogateat the patients location. Written or verbal consent was obtained from the patient/guardian to perform this visit using[place] [facility] [place]. Any patient questions regarding the telemedicine interaction were answered.
[2024-05-10] MEDS: Lasix 40 MG/4 ML IV SCH (22:26)
[2024-05-10] MEDS: Desyrel 150 MG PO SCH (22:26)
[2024-05-10] MEDS: Pepcid 20 MG PO SCH (22:27)
[2024-05-10] MEDS: Toprol-Xl 25MG Tablets PO SCH (22:29)
[2024-05-11 02:06] LABS: Hematocrit 27.9 % (34.1-44.9); Hemoglobin 8.7 g/dL (11.2-15.7); Mean Cell Volume 98.6 fL (79.4-94.8); Mean Corpuscular Hemoglobin 30.7 pg (25.6-32.2); Mean Corpuscular Hgb Concent. 31.2 g/dL (32.2-35.5); Mean Platelet Volume 11.2 fL (9.4-12.3); Platelet Count 143 x10^3/uL (182-369); Red Blood Count 2.83 x10^6/uL (3.93-5.22); Red Cell Distribution Width 12.5 % (11.7-14.4); White Blood Count 5.2 x10^3/uL (3.98-10.04)
[2024-05-11 02:33] LABS: Calcium 8.4 mg/dL (8.4-10.2); Creatinine 1 1.14 mg/dL (0.52-1.04); EST GLOMERULAR FILTRATION RATE 53.1 ML/MIN; Potassium 3.1 mmol/L (3.5-5.1)
[2024-05-11] MEDS ORDERED: MEDICATION INTERVENTION MC SCH (09:00)
[2024-05-11] MEDS ORDERED: PAROXETINE HCL 40 MG PO SCH (10:00)
[2024-05-11] MEDS ORDERED: NON-FORMULARY ITEM (Duloxetine Hcl [Cymbalta] 60 MG Capsule.Dr) PO SCH (10:00)
[2024-05-11] MEDS ORDERED: NON-FORMULARY ITEM (Atorvastatin Calcium [Lipitor] 80 MG Tablet) PO SCH (10:00)
[2024-05-11] MEDS: Protonix 40MG Tablet PO SCH (10:17)
[2024-05-11] MEDS: ENOXAPARIN SODIUM SQ SCH (10:17)
[2024-05-11] MEDS: ECOTRIN 81 MG PO SCH (10:17)
[2024-05-11] MEDS: Klor Con PO SCH ×2 (10:17→12:29)
[2024-05-11] MEDS: Effexor XR 75 MG PO SCH (10:17)
[2024-05-11] MEDS: Neurontin PO SCH ×2 (10:23→21:21)
[2024-05-11] MEDS: Cymbalta 30 MG Capsule PO SCH (10:23)
[2024-05-11] MEDS: Paxil 20 MG PO SCH (10:23)
--- NOTE | 2024-05-11 11:24 | XRAY ---
Indication: Abdominal pain. Comparison: July 17, 2008 KUB again nonacute and nonobstructed. Mild fecal debris in ascending and transverse colon. New IVC filter with stable cholecystectomy clips. Solid organs unremarkable. Osseous structures intact with new incompletely visualized right total hip arthroplasty.
--- NOTE | 2024-05-11 15:36 | PCM.NOTE ---
Date and Time: 05/11/24 1530 Subjective Assessment: 05/11/24 is a 64 year old female with a history of, seizures, stroke, hyperlipidemia, HTN, asthma, COPD, type II DM, DJD, GERD, anxiety, depression, open heart surgery, cardiac stents, and CHF (last ECHO was 2 years ago). She presented to the ED on 05/10/24 with bilateral lower extremity swelling, weight gain (18 pounds in 5 days), abdominal distension, and abdominal pain. Reported pressure in the legs and also in abdominal wall and difficulty breathing. Denies any chest pain, cough, fever or chills. Patient reports having similar symptoms in the past with CHF exacerbation. Patient reports she was traveling and was seen at an ER in [place] and is told that she has CHF exacerbation. This morning overall edema has improved. However she is having abd. pain that is sharp in RUQ. She does not have her appendix or gallbladder. KUB shows constipation and miralax ordered. Will likely d/c tomorrow if sxs improved. She denies CP, SOB, N/V/D. - Review of Systems Constitutional: No Fever, No Chills Eyes: No Symptoms Ears, Nose, & Throat: No Symptoms Respiratory: No Cough, No Short Of Breath Cardiac: No Chest Pain, No Edema, No Syncope Abdominal/Gastrointestinal: Abdominal Pain, Constipation, No Nausea, No Vomiting, No Diarrhea Genitourinary Symptoms: No Dysuria Musculoskeletal: No Back Pain, No Neck Pain Skin: No Rash Neurological: No Dizziness, No Focal Weakness, No Sensory Changes Psychological: No Symptoms Endocrine: No Symptoms Hematologic/Lymphatic: No Symptoms Immunological/Allergic: No Symptoms Objective Exam General Appearance: no apparent distress, alert Neurologic Exam: alert, oriented x 3, cooperative, normal mood/affect, nml cerebellar function, sensation nml, No motor deficits Skin Exam: normal color, warm, dry Eye Exam: PERRL, EOMI, eyes nml inspection Ears, Nose, Throat Exam: normal ENT inspection, pharynx normal, moist mucous membranes Neck Exam: normal inspection, non-tender, supple, full range of motion Respiratory Exam: normal breath sounds, lungs clear, No respiratory distress Cardiovascular Exam: regular rate/rhythm, normal heart sounds Gastrointestinal/Abdomen Exam: soft, tenderness (RUQ with palpation), No mass Extremity Exam: normal inspection, normal range of motion Back Exam: normal inspection, normal range of motion, No CVA tenderness, No vertebral tenderness Pelvic Exam: deferred Rectal Exam: deferred Objective Data Vital Signs: Vital Signs - 24 hr Temp Pulse Resp BP BP BP Pulse Ox 05/11/24 12:00 97.7 F 61 18 88/43 95 05/11/24 08:18 92/62 05/11/24 08:00 96.5 F 58 L 16 81/45 97 05/11/24 04:00 96.9 F 54 L 17 115/58 95 05/10/24 23:30 97.3 F 58 L 18 91/53 94 L 05/10/24 21:00 94 L 05/10/24 20:52 97.3 F 60 16 95/51 93 L 05/10/24 18:32 95 05/10/24 18:30 108/63 05/10/24 18:15 59 L 15 109/75 94 L 05/10/24 18:06 60 17 111/61 95 05/10/24 18:04 61 19 58/47 93 L 05/10/24 16:30 68 125/80 95 05/10/24 16:20 96 05/10/24 16:18 96 05/10/24 16:00 130/83 97 05/10/24 15:45 145/77 92 L 05/10/24 15:44 98.2 F 63 20 145/77 95 Pain Assessment - Last Documented Pain Intensity 7 Pain Scale Used 0-10 Pain Scale Intake and Output: Intake & Output 05/09/24 05/10/24 05/11/24 05/12/24 11:59 11:59 11:59 11:59 Intake Total 320 120 Output Total 2800 Balance -2480 120 Weight 73.5 kg Lab Results: Lab Results-Last 24 Hours 05/10/24 05/10/24 05/10/24 Range/Units 16:41 16:41 16:41 WBC 5.7 (3.98-10.04) x10^3/uL RBC 2.85 L (3.93-5.22) x10^6/uL Hgb 8.7 L (11.2-15.7) g/dL Hct 28.4 L (34.1-44.9) % MCV 99.6 H (79.4-94.8) fL MCH 30.5 (25.6-32.2) pg MCHC 30.6 L (32.2-35.5) g/dL RDW 12.4 (11.7-14.4) % Plt Count 157 L (182-369) x10^3/uL MPV 11.4 (9.4-12.3) fL Gran % 61.3 (34.0-71.1) % Immature Gran % (Auto) 0.3 (0.001-0.429) % Nucleat RBC Rel Count 0.0 (0.00-0.2) % Eos # (Auto) 0.15 (0.04-0.36) x10^3/uL Immature Gran # (Auto) 0.02 (0.001-0.031) x10^3u/L Absolute Lymphs (auto) 1.50 (1.18-3.74) x10^3/uL Absolute Monos (auto) 0.54 (0.24-0.86) x10^3/uL Absolute Nucleated RBC 0.00 (0.00-0.012) x10^3u/L Lymphocytes % 26.1 (19.3-51.7) % Monocytes % 9.4 (4.7-12.5) % Eosinophils % 2.6 (0.7-5.8) % Basophils % 0.3 (0.1-1.2) % Absolute Granulocytes 3.51 (1.56-6.13) x10^3/uL Basophils # 0.02 (0.01-0.08) x10^3/uL Sodium 138 (135-145) mmol/L Potassium 4.1 (3.5-5.1) mmol/L Chloride 103 (98-107) mmol/L Carbon Dioxide 28 (22-30) mmol/L Anion Gap 12.2 (5-15) MEQ/L BUN 25 H (7-17) mg/dL Creatinine 1.46 H (0.52-1.04) mg/dL Estimated GFR 39.5 ML/MIN Glucose 111 H (74-106) mg/dL Calcium 8.8 (8.4-10.2) mg/dL Magnesium 1.7 (1.6-2.3) mg/dL Total Bilirubin 0.60 (0.2-1.3) mg/dL AST 22 (14-36) U/L ALT 15 (0-35) U/L Alkaline Phosphatase 79 (38-126) U/L Troponin I < 0.012 (0.000-0.033) ng/mL NT-Pro-B Natriuret Pep 2940 (<300) pg/mL Serum Total Protein 6.8 (6.3-8.2) g/dL Albumin 3.9 (3.5-5.0) g/dL Urine Color (Yellow) Urine Appearance (Clear) Urine pH (4.6-8.0) Ur Specific [place] (1.005-1.030) Urine Protein (Negative) Urine Glucose (UA) (Negative) mg/dL Urine Ketones (Negative) Urine Blood (Negative) Urine Nitrite (Negative) Urine Bilirubin (Negative) Urine Urobilinogen (0.2) mg/dL Ur Leukocyte Esterase (Negative) U Hyaline Cast (Auto) (0-2) /LPF Urine Microscopic RBC (0-5) /HPF Urine Microscopic WBC (0-5) /HPF Ur Epithelial Cells (None Seen) /HPF Urine Bacteria (None Seen) /HPF Urine Culture Reflexed (NO) 05/10/24 05/10/24 05/11/24 Range/Units 18:56 19:48 01:40 WBC (3.98-10.04) x10^3/uL RBC (3.93-5.22) x10^6/uL Hgb (11.2-15.7) g/dL Hct (34.1-44.9) % MCV (79.4-94.8) fL MCH (25.6-32.2) pg MCHC (32.2-35.5) g/dL RDW (11.7-14.4) % Plt Count (182-369) x10^3/uL MPV (9.4-12.3) fL Gran % (34.0-71.1) % Immature Gran % (Auto) (0.001-0.429) % Nucleat RBC Rel Count (0.00-0.2) % Eos # (Auto) (0.04-0.36) x10^3/uL Immature Gran # (Auto) (0.001-0.031) x10^3u/L Absolute Lymphs (auto) (1.18-3.74) x10^3/uL Absolute Monos (auto) (0.24-0.86) x10^3/uL Absolute Nucleated RBC (0.00-0.012) x10^3u/L Lymphocytes % (19.3-51.7) % Monocytes % (4.7-12.5) % Eosinophils % (0.7-5.8) % Basophils % (0.1-1.2) % Absolute Granulocytes (1.56-6.13) x10^3/uL Basophils # (0.01-0.08) x10^3/uL Sodium (135-145) mmol/L Potassium (3.5-5.1) mmol/L Chloride (98-107) mmol/L Carbon Dioxide (22-30) mmol/L Anion Gap (5-15) MEQ/L BUN (7-17) mg/dL Creatinine (0.52-1.04) mg/dL Estimated GFR ML/MIN Glucose (74-106) mg/dL Calcium (8.4-10.2) mg/dL Magnesium (1.6-2.3) mg/dL Total Bilirubin (0.2-1.3) mg/dL AST (14-36) U/L ALT (0-35) U/L Alkaline Phosphatase (38-126) U/L Troponin I < 0.012 < 0.012 (0.000-0.033) ng/mL NT-Pro-B Natriuret Pep (<300) pg/mL Serum Total Protein (6.3-8.2) g/dL Albumin (3.5-5.0) g/dL Urine Color Yellow (Yellow) Urine Appearance Clear (Clear) Urine pH 5.5 (4.6-8.0) Ur Specific [place] 1.010 (1.005-1.030) Urine Protein Negative (Negative) Urine Glucose (UA) Negative (Negative) mg/dL Urine Ketones Negative (Negative) Urine Blood Negative (Negative) Urine Nitrite Negative (Negative) Urine Bilirubin Negative (Negative) Urine Urobilinogen 0.2 (0.2) mg/dL Ur Leukocyte Esterase Negative (Negative) U Hyaline Cast (Auto) NONE SEEN (0-2) /LPF Urine Microscopic RBC 0-2 (0-5) /HPF Urine Microscopic WBC 3-5 (0-5) /HPF Ur Epithelial Cells None Seen (None Seen) /HPF Urine Bacteria None Seen (None Seen) /HPF Urine Culture Reflexed NO (NO) 05/11/24 05/11/24 Range/Units 01:40 01:40 WBC 5.2 (3.98-10.04) x10^3/uL RBC 2.83 L (3.93-5.22) x10^6/uL Hgb 8.7 L (11.2-15.7) g/dL Hct 27.9 L (34.1-44.9) % MCV 98.6 H (79.4-94.8) fL MCH 30.7 (25.6-32.2) pg MCHC 31.2 L (32.2-35.5) g/dL RDW 12.5 (11.7-14.4) % Plt Count 143 L (182-369) x10^3/uL MPV 11.2 (9.4-12.3) fL Gran % (34.0-71.1) % Immature Gran % (Auto) (0.001-0.429) % Nucleat RBC Rel Count (0.00-0.2) % Eos # (Auto) (0.04-0.36) x10^3/uL Immature Gran # (Auto) (0.001-0.031) x10^3u/L Absolute Lymphs (auto) (1.18-3.74) x10^3/uL Absolute Monos (auto) (0.24-0.86) x10^3/uL Absolute Nucleated RBC (0.00-0.012) x10^3u/L Lymphocytes % (19.3-51.7) % Monocytes % (4.7-12.5) % Eosinophils % (0.7-5.8) % Basophils % (0.1-1.2) % Absolute Granulocytes (1.56-6.13) x10^3/uL Basophils # (0.01-0.08) x10^3/uL Sodium 140 (135-145) mmol/L Potassium 3.1 L D (3.5-5.1) mmol/L Chloride 102 (98-107) mmol/L Carbon Dioxide 30 (22-30) mmol/L Anion Gap 11.0 (5-15) MEQ/L BUN 23 H (7-17) mg/dL Creatinine 1.14 H (0.52-1.04) mg/dL Estimated GFR 53.1 ML/MIN Glucose 156 H (74-106) mg/dL Calcium 8.4 (8.4-10.2) mg/dL Magnesium (1.6-2.3) mg/dL Total Bilirubin (0.2-1.3) mg/dL AST (14-36) U/L ALT (0-35) U/L Alkaline Phosphatase (38-126) U/L Troponin I (0.000-0.033) ng/mL NT-Pro-B Natriuret Pep 2400 (<300) pg/mL Serum Total Protein (6.3-8.2) g/dL Albumin (3.5-5.0) g/dL Urine Color (Yellow) Urine Appearance (Clear) Urine pH (4.6-8.0) Ur Specific [place] (1.005-1.030) Urine Protein (Negative) Urine Glucose (UA) (Negative) mg/dL Urine Ketones (Negative) Urine Blood (Negative) Urine Nitrite (Negative) Urine Bilirubin (Negative) Urine Urobilinogen (0.2) mg/dL Ur Leukocyte Esterase (Negative) U Hyaline Cast (Auto) (0-2) /LPF Urine Microscopic RBC (0-5) /HPF Urine Microscopic WBC (0-5) /HPF Ur Epithelial Cells (None Seen) /HPF Urine Bacteria (None Seen) /HPF Urine Culture Reflexed (NO) Radiology Exams: Radiology Procedures Category Date Time Status CHEST 1 VIEW (PORTABLE) Stat Exams 05/10/24 16:20 Completed ECHO W/2D AND DOPPLER [US] Routine Exams 05/11/24 20:44 Taken KUB Routine Exams 05/11/24 10:39 Completed Assessment/Plan (1) Acute exacerbation of CHF (congestive heart failure) Current Visit: Yes Status: Acute Assessment & Plan: - Lasix 40 Q8 IV - Echo - Tele - EKG - BNP 2400 - daily weight and I&O's - Trop x3 negative - edema resolved - CXR does not show CHF Code(s): I50.9 - HEART FAILURE, UNSPECIFIED (2) Abdominal pain Current Visit: Yes Status: Acute Assessment & Plan: - KUB- shows constipation - see constipation plan Code(s): R10.9 - UNSPECIFIED ABDOMINAL PAIN (3) Constipation Current Visit: Yes Status: Acute Assessment & Plan: -as seen on KUB - Miralax x1 - stool softner Code(s): K59.00 - CONSTIPATION, UNSPECIFIED (4) Anemia Current Visit: Yes Status: Chronic Assessment & Plan: - Hgb 8.7 - iron panel for eval - micocytic, normochromic anemia Code(s): D64.9 - ANEMIA, UNSPECIFIED (5) Diabetes Current Visit: No Status: Chronic Qualifiers: Diabetes mellitus type: type 2 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: wi longterm use Diabetes mellitus complication status: without complication Qualified Code(s): E11.9 - Type 2 diabetes mellitus without complications; Z79.4 - group home (current) use of insulin Assessment & Plan: - takes ozempic weekly - accuchecks ac/hs - low dose s/s - A1C pending Code(s): E11.9 - TYPE 2 DIABETES MELLITUS WITHOUT COMPLICATIONS (6) Hypertension Current Visit: No Status: Chronic Assessment & Plan: - BP stable - Continue home meds Code(s): I10 - ESSENTIAL (PRIMARY) HYPERTENSION (7) CKD (chronic kidney disease) Current Visit: Yes Status: Chronic Assessment & Plan: - as baseline renal function Code(s): N18.9 - CHRONIC KIDNEY DISEASE, UNSPECIFIED (8) Depression with anxiety Current Visit: Yes Status: Chronic Assessment & Plan: - Continue effexor, cymbalta Code(s): F41.8 - OTHER SPECIFIED ANXIETY DISORDERS (9) Sinus bradycardia Current Visit: Yes Status: Chronic Assessment & Plan: - as seen on tele - 2:2 beta gricelda VTE: Lovenox PPI: Protonix Next of KIN: D/C plan: tomorrow Code status: Full Code(s): R00.1 - BRADYCARDIA, UNSPECIFIED
[2024-05-11] MEDS ORDERED: HUMALOG SQ PRN (15:40)
[2024-05-11] MEDS ORDERED: Klor Con ONE ×2 (17:53→19:44)
[2024-05-11] MEDS: ZOCOR 20MG PO SCH (21:21)
[2024-05-11] MEDS: Zofran 4 MG/2 ML VIAL IV PRN (23:50)
[2024-05-12 05:08] LABS: Hematocrit 28.9 % (34.1-44.9); Hemoglobin 8.9 g/dL (11.2-15.7); Mean Cell Volume 98.6 fL (79.4-94.8); Mean Corpuscular Hemoglobin 30.4 pg (25.6-32.2); Mean Corpuscular Hgb Concent. 30.8 g/dL (32.2-35.5); Platelet Count 166 x10^3/uL (182-369); Red Blood Count 2.93 x10^6/uL (3.93-5.22); Red Cell Distribution Width 12.6 % (11.7-14.4); White Blood Count 5.3 x10^3/uL (3.98-10.04)
[2024-05-12 05:28] LABS: ALBUMIN 3.8 g/dL (3.5-5.0); ANION GAP 11.4 MEQ/L (5-15); BILIRUBIN,TOTAL 0.7 mg/dL (0.2-1.3); Calcium 8.4 mg/dL (8.4-10.2); Creatinine 1 1.23 mg/dL (0.52-1.04); EST GLOMERULAR FILTRATION RATE 48.5 ML/MIN; MAGNESIUM 1.7 mg/dL (1.6-2.3); Potassium 4.2 mmol/L (3.5-5.1); Total Protein 6.8 g/dL (6.3-8.2)
[2024-05-12 05:50] LABS: Iron 63 ug/dL (37-170); Iron Saturation 18 % (20-39); TIBC 342 ug/dL (265-462)
[2024-05-12] MEDS: Miralax Powder 17GM PACKET PO SCH (08:48)
--- NOTE | 2024-05-12 10:09 | PCM.DS ---
Discharge Summary Date of Admission: 05/10/24 20:34 Date of Discharge: 05/12/24 Admitting Physician: DORCAS ZAVALETA MD Consults: Consults on Case 05/10/24 20:43 Nutritional Consult ROUTINE Primary Care Provider: ROSALIE MARTINEZ Allergies Allergies Iodinated Contrast Media [Iodinated Contrast Media - IV Dye] Allergy (Severe, Verified 11/09/21 13:35) Shortness of Breath anaphylaxis Penicillins Allergy (Unknown, Verified 11/09/21 13:35) Rash prednisone Adverse Reaction (Unknown, Verified 11/09/21 13:35) Swelling on prednisone now but makes sick and irritable Hospital Summary - Hospital Course Hospital Course: 05/11/24 is a 64 year old female with a history of, seizures, stroke, hyperlipidemia, HTN, asthma, COPD, type II DM, DJD, GERD, anxiety, depression, open heart surgery, cardiac stents, and CHF (last ECHO was 2 years ago). She presented to the ED on 05/10/24 with bilateral lower extremity swelling, weight gain (18 pounds in 5 days), abdominal distension, and abdominal pain. Reported pressure in the legs and also in abdominal wall and difficulty breathing. Micheal es any chest pain, cough, fever or chills. Patient reports having similar symptoms in the past with CHF exacerbation. Patient reports she was traveling and was seen at an ER in [place] and is told that she has CHF exacerbation. This morning overall edema has improved. However she is having abd. pain that is sharp in RUQ. She does not have her appendix or gallbladder. KUB shows constipation and miralax ordered. Will likely d/c tomorrow if sxs improved. She denies CP, SOB, N/V/D. 05/12/24 Pt resting in bed. She did not receive miralax yesterday as ordered. KUB showed constipation. She has not had a BM yet since admission. Discussed with nurse yesterday to please give Miralax. Pt can d/c after after BM today if feeling better. Edema and SOB resolved. She will need to f/u with cardiology and PCP OP. EF 60 %. She denies any further concerns and would like to go home today. - Vitals & Intake/Output Vital Signs: Vital Signs Temperature 97.2 F 05/12/24 07:26 Pulse Rate 61 05/12/24 07:26 Respiratory Rate 17 05/12/24 07:26 Blood Pressure 117/56 05/12/24 07:26 O2 Sat by Pulse Oximetry 98 05/12/24 07:26 Intake & Output: Intake & Output 05/09/24 05/10/24 05/11/24 05/12/24 11:59 11:59 11:59 11:59 Intake Total 320 1160 Output Total 2800 1600 Balance -2480 -440 Weight 71.9 kg 72.4 kg - Lab Result Diagrams: 05/12/24 04:45 05/12/24 04:45 Lab Results-Last 24 Hrs: Lab Results-Last 24 Hours 05/12/24 05/12/24 05/12/24 Range/Units 04:45 04:45 04:45 WBC 5.3 (3.98-10.04) x10^3/uL RBC 2.93 L (3.93-5.22) x10^6/uL Hgb 8.9 L (11.2-15.7) g/dL Hct 28.9 L (34.1-44.9) % MCV 98.6 H (79.4-94.8) fL MCH 30.4 (25.6-32.2) pg MCHC 30.8 L (32.2-35.5) g/dL RDW 12.6 (11.7-14.4) % Plt Count 166 L (182-369) x10^3/uL MPV 11.0 (9.4-12.3) fL Sodium (135-145) mmol/L Potassium (3.5-5.1) mmol/L Chloride (98-107) mmol/L Carbon Dioxide (22-30) mmol/L Anion Gap (5-15) MEQ/L BUN (7-17) mg/dL Creatinine (0.52-1.04) mg/dL Estimated GFR ML/MIN Glucose (74-106) mg/dL Hemoglobin A1c 5.14 (4.5-6.0) % Calcium (8.4-10.2) mg/dL Magnesium (1.6-2.3) mg/dL Iron 63 (37-170) ug/dL TIBC 342 (265-462) ug/dL Iron Saturation 18 L (20-39) % Total Bilirubin (0.2-1.3) mg/dL AST (14-36) U/L ALT (0-35) U/L Alkaline Phosphatase (38-126) U/L Serum Total Protein (6.3-8.2) g/dL Albumin (3.5-5.0) g/dL 05/12/24 Range/Units 04:45 WBC (3.98-10.04) x10^3/uL RBC (3.93-5.22) x10^6/uL Hgb (11.2-15.7) g/dL Hct (34.1-44.9) % MCV (79.4-94.8) fL MCH (25.6-32.2) pg MCHC (32.2-35.5) g/dL RDW (11.7-14.4) % Plt Count (182-369) x10^3/uL MPV (9.4-12.3) fL Sodium 140 (135-145) mmol/L Potassium 4.2 D (3.5-5.1) mmol/L Chloride 101 (98-107) mmol/L Carbon Dioxide 32 H (22-30) mmol/L Anion Gap 11.4 (5-15) MEQ/L BUN 24 H (7-17) mg/dL Creatinine 1.23 H (0.52-1.04) mg/dL Estimated GFR 48.5 ML/MIN Glucose 107 H (74-106) mg/dL Hemoglobin A1c (4.5-6.0) % Calcium 8.4 (8.4-10.2) mg/dL Magnesium 1.7 (1.6-2.3) mg/dL Iron (37-170) ug/dL TIBC (265-462) ug/dL Iron Saturation (20-39) % Total Bilirubin 0.70 (0.2-1.3) mg/dL AST 21 (14-36) U/L ALT 16 (0-35) U/L Alkaline Phosphatase 75 (38-126) U/L Serum Total Protein 6.8 (6.3-8.2) g/dL Albumin 3.8 (3.5-5.0) g/dL - Radiology Exams Ordered Rad Exams-Entire Visit: Radiology Procedures Category Date Time Status CHEST 1 VIEW (PORTABLE) Stat Exams 05/10/24 16:20 Completed ECHO W/2D AND DOPPLER [US] Routine Exams 05/11/24 20:44 Taken KUB Routine Exams 05/11/24 10:39 Completed - Procedures and Test Procedures and Tests throughout Hospitalization: Therapy Orders & Screens 05/10/24 20:43 PT Eval & Treat ( Order) ONCE Reason for Eval:: CHF exacerbation Diagnosis: CHF exacerbation Discharge Exam General Appearance: no apparent distress, alert Neurologic Exam: alert, oriented x 3, cooperative, normal mood/affect, nml cerebellar function, sensation nml, No motor deficits Eye Exam: PERRL, EOMI, eyes nml inspection Ears, Nose, Throat Exam: normal ENT inspection, pharynx normal, moist mucous membranes Neck Exam: normal inspection, non-tender, supple, full range of motion Respiratory Exam: normal breath sounds, lungs clear, No respiratory distress Cardiovascular Exam: regular rate/rhythm, normal heart sounds Gastrointestinal/Abdomen Exam: soft, tenderness, No mass Pelvic Exam: deferred Rectal Exam: deferred Back Exam: normal inspection, normal range of motion, No CVA tenderness, No ve rtebral tenderness Extremity Exam: normal inspection, normal range of motion Skin Exam: normal color, warm, dry Final Diagnosis/Problem List - Final Discharge Diagnosis/Problem (1) Acute exacerbation of CHF (congestive heart failure) Current Visit: Yes Status: Acute Code(s): I50.9 - HEART FAILURE, UNSPECIFIED (2) Abdominal pain Current Visit: Yes Status: Acute Code(s): R10.9 - UNSPECIFIED ABDOMINAL PAIN (3) Constipation Current Visit: Yes Status: Acute Code(s): K59.00 - CONSTIPATION, UNSPECIFIED (4) Anemia Current Visit: Yes Status: Chronic Code(s): D64.9 - ANEMIA, UNSPECIFIED (5) Diabetes Current Visit: No Status: Chronic Code(s): E11.9 - TYPE 2 DIABETES MELLITUS WITHOUT COMPLICATIONS (6) Hypertension Current Visit: No Status: Chronic Code(s): I10 - ESSENTIAL (PRIMARY) HYPERTENSION (7) CKD (chronic kidney disease) Current Visit: Yes Status: Chronic Code(s): N18.9 - CHRONIC KIDNEY DISEASE, UNSPECIFIED (8) Depression with anxiety Current Visit: Yes Status: Chronic Code(s): F41.8 - OTHER SPECIFIED ANXIETY DISORDERS (9) Sinus bradycardia Current Visit: Yes Status: Chronic Assessment & Plan: (1) Acute exacerbation of CHF (congestive heart failure) Current Visit: Yes Status: Acute Assessment & Plan: - Lasix 40 Q8 IV - Echo - Tele - EKG - BNP 2400 - daily weight and I&O's - Trop x3 negative - edema resolved - CXR does not show CHF 05/12 - sxs resolved- IV Lasix stopped - Echo EF 60% - F/U with cardiology OP Code(s): I50.9 - HEART FAILURE, UNSPECIFIED (2) Abdominal pain Current Visit: Yes Status: Acute Assessment & Plan: - KUB- shows constipation - see constipation plan Code(s): R10.9 - UNSPECIFIED ABDOMINAL PAIN (3) Constipation Current Visit: Yes Status: Acute Assessment & Plan: -as seen on KUB - Miralax x1 - stool softner 05/12 - Miralax not gave by nursing yesterday - pt states she did not refuse med - Miralax ordered to give again today. 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: with nursing home use Diabetes mellitus complication status: without complication Qualified Code(s): E11.9 - Type 2 diabetes mellitus without complications; Z79.4 - technician terminal and repeater (current) use of insulin Assessment & Plan: - takes Ozempic weekly - accuchecks ac/hs - low dose s/s - A1C 5.14- controlled Code(s): E11.9 - TYPE 2 DIABETES MELLITUS WITHOUT COMPLICATIONS (6) Hypertension Current Visit: No Status: Chronic Assessment & Plan: - BP stable - Continue home meds Code(s): I10 - ESSENTIAL (PRIMARY) HYPERTENSION (7) CKD (chronic kidney disease) Current Visit: Yes Status: Chronic Assessment & Plan: - as baseline renal function Code(s): N18.9 - CHRONIC KIDNEY DISEASE, UNSPECIFIED (8) Depression with anxiety Current Visit: Yes Status: Chronic Assessment & Plan: - Continue Effexor, cymbalta Code(s): F41.8 - OTHER SPECIFIED ANXIETY DISORDERS (9) Sinus bradycardia Current Visit: Yes Status: Chronic Assessment & Plan: - as seen on tele - 2:2 beta gricelda Code(s): R00.1 - BRADYCARDIA, UNSPECIFIED - Discharge Discharge Date: 05/12/24 Disposition: Home, Self-Care Condition: Stable Prescriptions: Continue Gabapentin 1,600 mg PO DAILY Torsemide [Demadex] 20 mg PO DAILY PANTOPRAZOLE 40 mg Tablet [Protonix 40MG Tablet] 40 mg PO DAILY Famotidine 20 mg [Pepcid 20 MG] 40 mg PO HS Duloxetine HCl [Cymbalta] 60 mg PO DAILY Sennosides [Senokot] 8.6 mg PO UD PRN PRN Reason: Constipation Metoprolol Succinate 25 mg Xl* [Toprol-Xl 25MG Tablets] 25 mg PO BID Potassium Chloride Tab* [Klor Con] 10 meq PO DAILY 30 Days #30 tab PARoxetine HCL [Paxil] 40 mg PO DAILY Semaglutide [Ozempic] 0.5 mg SQ WEEKLY Atorvastatin Calcium [Lipitor] 80 mg PO QHS Aspirin EC 81 mg [Ecotrin 81 mg] 81 mg PO DAILY Venlafaxine HCl ER 75 mg [Effexor XR 75 MG] 75 mg PO DAILY Gabapentin 800 mg PO QHS Trazodone HCl 100 mg PO QHS Instructions: Constipation in adults, Anemia caused by low iron in adults - Discharge instructions, Heart failure - Discharge instructions Follow up with: ZULEYMA AHN MD [ACTIVE STAFF] - 05/16/24 11:00 am
[2024-05-12] MEDS ORDERED: Miralax Powder 17GM PACKET PO ONE (13:28)
[2024-05-12] MEDS: Miralax Powder 17GM PACKET PO ONE (15:36)
[2024-05-12 16:00] LABS: Ferritin 17.4 ng/mL (11.1-264); Folate (Folic Acid) 6.97 ng/mL (2.76 - >20)
[2024-05-13 07:09] VITALS: BP 118/54; PULSE 69; RESP 18; TEMP 97.3; O2SAT 95
[2024-05-13] MEDS: Docusate Sodium 100 MG PO PRN (07:20)
--- NOTE | 2024-05-13 07:50 | PCM.DS ---
Discharge Summary Date of Admission: 05/10/24 20:34 Date of Discharge: 05/13/24 Admitting Physician: DORCAS ZAVALETA MD Consults: Consults on Case 05/10/24 20:43 Nutritional Consult ROUTINE Primary Care Provider: ROSALIE MARTINEZ Allergies Allergies Iodinated Contrast Media [Iodinated Contrast Media - IV Dye] Allergy (Severe, Verified 11/09/21 13:35) Shortness of Breath anaphylaxis Penicillins Allergy (Unknown, Verified 11/09/21 13:35) Rash prednisone Adverse Reaction (Unknown, Verified 11/09/21 13:35) Swelling on prednisone now but makes sick and irritable Hospital Summary - Hospital Course Hospital Course: 05/11/24 is a 64 year old female with a history of, seizures, stroke, hyperlipidemia, HTN, asthma, COPD, type II DM, DJD, GERD, anxiety, depression, open heart surgery, cardiac stents, and CHF (last ECHO was 2 years ago). She presented to the ED on 05/10/24 with bilateral lower extremity swelling, weight gain (18 pounds in 5 days), abdominal distension, and abdominal pain. Reported pressure in the legs and also in abdominal wall and difficulty breathing. Michael es any chest pain, cough, fever or chills. Patient reports having similar symptoms in the past with CHF exacerbation. Patient reports she was traveling and was seen at an ER in [place] and is told that she has CHF exacerbation. This morning overall edema has improved. However she is having abd. pain that is sharp in RUQ. She does not have her appendix or gallbladder. KUB shows constipation and miralax ordered. Will likely d/c tomorrow if sxs improved. She denies CP, SOB, N/V/D. 05/12/24 Pt resting in bed. She did not receive miralax yesterday as ordered. KUB showed constipation. She has not had a BM yet since admission. Discussed with nurse yesterday to please give Miralax. Pt can d/c after after BM today if feeling better. Edema and SOB resolved. She will need to f/u with cardiology and PCP OP. EF 60 %. She denies any further concerns and would like to go home today. 05/13/24 Pt was to leave yesterday but was constipated with abd pain and unable to have a BM so wanted to stay overnight. She was able to have a BM today and wants to leave. She explained she will likely have more stools at home as she will be more comfortable there. She denies any further concerns at this time. - Vitals & Intake/Output Vital Signs: Vital Signs Temperature 97.3 F 05/13/24 07:09 Pulse Rate 69 05/13/24 07:09 Respiratory Rate 18 05/13/24 07:09 Blood Pressure 118/54 05/13/24 07:09 O2 Sat by Pulse Oximetry 95 05/13/24 07:09 Intake & Output: Intake & Output 05/10/24 05/11/24 05/12/24 05/13/24 11:59 11:59 11:59 11:59 Intake Total 320 1280 600 Output Total 2800 1600 1000 Balance -2480 -320 -400 Weight 71.9 kg 72.4 kg 72 kg - Lab Result Diagrams: 05/12/24 04:45 05/12/24 04:45 Lab Results-Last 24 Hrs: Lab Results-Last 24 Hours 05/12/24 Range/Units 04:45 Ferritin 17.4 (11.1-264) ng/mL Vitamin B12 358 (239-931) pg/mL Folic Acid 6.97 (2.76 - >20) ng/mL - Radiology Exams Ordered Rad Exams-Entire Visit: Radiology Procedures Category Date Time Status ECHO W/2D AND DOPPLER [US] Routine Exams 05/11/24 20:44 Taken KUB Routine Exams 05/11/24 10:39 Completed - Procedures and Test Procedures and Tests throughout Hospitalization: Therapy Orders & Screens 05/10/24 20:43 PT Eval & Treat (MD Order) ONCE Reason for Eval:: CHF exacerbation Diagnosis: CHF exacerbation Discharge Exam General Appearance: no apparent distress, alert Neurologic Exam: alert, oriented x 3, cooperative, normal mood/affect, nml cerebellar function, sensation nml, No motor deficits Eye Exam: PERRL, EOMI, eyes nml inspection Ears, Nose, Throat Exam: normal ENT inspection, pharynx normal, moist mucous membranes Neck Exam: normal inspection, non-tender, supple, full range of motion Respiratory Exam: normal breath sounds, lungs clear, No respiratory distress Cardiovascular Exam: regular rate/rhythm, normal heart sounds Gastrointestinal/Abdomen Exam: soft, No tenderness, No mass Pelvic Exam: deferred Rectal Exam: deferred Back Exam: normal inspection, normal range of motion, No CVA tenderness, No vertebral tenderness Extremity Exam: normal inspection, normal range of motion Skin Exam: normal color, warm, dry Final Diagnosis/Problem List - Final Discharge Diagnosis/Problem (1) Acute exacerbation of CHF (congestive heart failure) Current Visit: Yes Status: Acute Code(s): I50.9 - HEART FAILURE, UNSPECIFIED (2) Abdominal pain Current Visit: Yes Status: Acute Code(s): R10.9 - UNSPECIFIED ABDOMINAL PAIN (3) Constipation Current Visit: Yes Status: Acute Code(s): K59.00 - CONSTIPATION, UNSPECIFIED (4) Anemia Current Visit: Yes Status: Chronic Code(s): D64.9 - ANEMIA, UNSPECIFIED (5) Diabetes Current Visit: No Status: Chronic Code(s): E11.9 - TYPE 2 DIABETES MELLITUS WITHOUT COMPLICATIONS (6) Hypertension Current Visit: No Status: Chronic Code(s): I10 - ESSENTIAL (PRIMARY) HYPERTENSION (7) CKD (chronic kidney disease) Current Visit: Yes Status: Chronic Code(s): N18.9 - CHRONIC KIDNEY DISEASE, UNSPECIFIED (8) Depression with anxiety Current Visit: Yes Status: Chronic Code(s): F41.8 - OTHER SPECIFIED ANXIETY DISORDERS (9) Sinus bradycardia Current Visit: Yes Status: Chronic Assessment & Plan: (1) Acute exacerbation of CHF (congestive heart failure) Current Visit: Yes Status: Acute Assessment & Plan: - Lasix 40 Q8 IV - Echo - Tele - EKG - BNP 2400 - daily weight and I&O's - Trop x3 negative - edema resolved - CXR does not show CHF 05/12 - sxs resolved- IV Lasix stopped - Echo EF 60% - F/U with cardiology OP Code(s): I50.9 - HEART FAILURE, UNSPECIFIED (2) Abdominal pain Current Visit: Yes Status: Acute Assessment & Plan: - KUB- shows constipation - see constipation plan Code(s): R10.9 - UNSPECIFIED ABDOMINAL PAIN (3) Constipation Current Visit: Yes Status: Acute Assessment & Plan: -as seen on KUB - Miralax x1 - stool softner 05/12 - Miralax not gave by nursing yesterday - pt states she did not refuse med - Miralax ordered to give again today. - Can d/c after BM 05/13 - + BM today can d/c- abd pain improved Code(s): K59.00 - CONSTIPATION, UNSPECIFIED (4) Anemia Current Visit: Yes Status: Chronic Assessment & Plan: - Hgb 8.7 - iron panel for eval - micocytic, normochromic anemia 05/12 - Iron slightly low at 18- will advise iron rich foods - Hgb 8.9- improving - consider OP hematology f/u Code(s): D64.9 - ANEMIA, UNSPECIFIED (5) Diabetes Current Visit: No Status: Chronic Qualifiers: Diabetes mellitus type: type 2 Diabetes mellitus skilled nursing insulin use: with intermodal dispatcher use Diabetes mellitus complication status: without complication Qualified Code(s): E11.9 - Type 2 diabetes mellitus without complications; Z79.4 - [facility] (current) use of insulin Assessment & Plan: - takes Ozempic weekly - accuchecks ac/hs - low dose s/s - A1C 5.14- controlled Code(s): E11.9 - TYPE 2 DIABETES MELLITUS WITHOUT COMPLICATIONS (6) Hypertension Current Visit: No Status: Chronic Assessment & Plan: - BP stable - Continue home meds Code(s): I10 - ESSENTIAL (PRIMARY) HYPERTENSION (7) CKD (chronic kidney disease) Current Visit: Yes Status: Chronic Assessment & Plan: - as baseline renal function Code(s): N18.9 - CHRONIC KIDNEY DISEASE, UNSPECIFIED (8) Depression with anxiety Current Visit: Yes Status: Chronic Assessment & Plan: - Continue Effexor, cymbalta Code(s): F41.8 - OTHER SPECIFIED ANXIETY DISORDERS (9) Sinus bradycardia Current Visit: Yes Status: Chronic Assessment & Plan: - as seen on tele - 2:2 beta gricelda Code(s): R00.1 - BRADYCARDIA, UNSPECIFIED Code(s): R00.1 - BRADYCARDIA, UNSPECIFIED - Discharge Discharge Date: 05/13/24 Disposition: Home, Self-Care Condition: Stable Prescriptions: Continue Gabapentin 1,600 mg PO DAILY Torsemide [Demadex] 20 mg PO DAILY PANTOPRAZOLE 40 mg Tablet [Protonix 40MG Tablet] 40 mg PO DAILY Famotidine 20 mg [Pepcid 20 MG] 40 mg PO HS Duloxetine HCl [Cymbalta] 60 mg PO DAILY Sennosides [Senokot] 8.6 mg PO UD PRN PRN Reason: Constipation Metoprolol Succinate 25 mg Xl* [Toprol-Xl 25MG Tablets] 25 mg PO BID Potassium Chloride Tab* [Klor Con] 10 meq PO DAILY 30 Days #30 tab PARoxetine HCL [Paxil] 40 mg PO DAILY Semaglutide [Ozempic] 0.5 mg SQ WEEKLY Atorvastatin Calcium [Lipitor] 80 mg PO QHS Aspirin EC 81 mg [Ecotrin 81 mg] 81 mg PO DAILY Venlafaxine HCl ER 75 mg [Effexor XR 75 MG] 75 mg PO DAILY Gabapentin 800 mg PO QHS Trazodone HCl 100 mg PO QHS Instructions: Constipation in adults, Anemia caused by low iron in adults - Discharge instructions, Heart failure - Discharge instructions Follow up with: ZULEYMA AHN MD [ACTIVE STAFF] - 05/16/24 11:00 am SHANNAN JAIMES MD [NON-STAFF PHY W/O PRIVILEGES] - 06/02/24 2:00 pm ()
== END 2024-05-13 10:32 | disposition home or self-care (01) ==
LOC: ED 15:40 → MED SURG 20:34
PROVIDERS: ADMIT Internal Medicine; ATTEND Internal Medicine
DX: E11.22 Type 2 diabetes mellitus with diabetic chronic kidney disease (principal); I12.9 Hypertensive chronic kidney disease with stage 1 through stage 4 chronic kidney disease, or unspecified chronic kidney disease; N18.9 Chronic kidney disease, unspecified; I50.9 Heart failure, unspecified; R10.9 Unspecified abdominal pain; K59.00 Constipation, unspecified; D64.9 Anemia, unspecified; E11.9 Type 2 diabetes mellitus without complications; F41.8 Other specified anxiety disorders; R00.1 Bradycardia, unspecified; I25.10 Atherosclerotic heart disease of native coronary artery without angina pectoris; Z79.899 Other long term (current) drug therapy; Z95.0 Presence of cardiac pacemaker
CPT/HCPCS: 36415; 71045; 74018; 80048; 80053; 81001; 82607; 82728; 82746; 83036; 83540; 83550; 83735; 83880; 84484; 85025; 85027; 93268; 93306; 96374; 97161; 99285; G0378; Q3014; J1650; J1940; J2405; A9270-GY

== ENCOUNTER 2024-07-21 05:40 | Day surgery (SDC) | payer MEDICARE, OTHER ==
[2024-07-21] MEDS: Lactated Ringers 1,000 ML IV SCH (06:20)
[2024-07-21 06:38] VITALS: RESP 18
[2024-07-21 06:45] LABS: Absolute Neutrophil Ct (ANC) 3.49 x10^3/uL (1.56-6.13); BASOPHIL % 0.4 % (0.1-1.2); Basophil (Absolute #) 0.02 x10^3/uL (0.01-0.08); Eosinophil % 3.2 % (0.7-5.8); Eosinophil (Absolute #) 0.17 x10^3/uL (0.04-0.36); Hematocrit 34.3 % (34.1-44.9); Hemoglobin 10.9 g/dL (11.2-15.7); IMMATURE GRAN # 0.01 x10^3u/L (0.001-0.031); IMMATURE GRAN % 0.2 % (0.001-0.429); Lymphocyte (Absolute #) 1.14 x10^3/uL (1.18-3.74); Lymphocytes % 21.4 % (19.3-51.7); Mean Corpuscular Hemoglobin 31.1 pg (25.6-32.2); Mean Corpuscular Hgb Concent. 31.8 g/dL (32.2-35.5); Mean Platelet Volume 10.6 fL (9.4-12.3); Monocyte (Absolute #) 0.49 x10^3/uL (0.24-0.86); Monocytes % 9.2 % (4.7-12.5); Neutrophil % 65.6 % (34.0-71.1); Platelet Count 172 x10^3/uL (182-369); Red Cell Distribution Width 15.9 % (11.7-14.4); White Blood Count 5.3 x10^3/uL (3.98-10.04)
[2024-07-21 06:51] LABS: ANION GAP 10.5 MEQ/L (5-15); Calcium 8.6 mg/dL (8.4-10.2); Creatinine 1 1.36 mg/dL (0.52-1.04); Potassium 4.3 mmol/L (3.5-5.1)
[2024-07-21] MEDS ORDERED: propofoL IV ONE ×2 (07:23→07:41)
[2024-07-21] MEDS ORDERED: Xylocaine-Mpf 2% 5 Ml Vial ONE (07:41)
[2024-07-21 08:25] VITALS: O2SAT 98
[2024-07-21 08:30] VITALS: PULSE 66
[2024-07-21 08:38] VITALS: BP 102/68; TEMP 97.8
--- NOTE | 2024-07-24 12:39 | OP ---
SURGERY DATE/TIME: 07/21/2024 [id number] PREOPERATIVE DIAGNOSES: 1) Abdominal pain. 2) Bloating. 3) Constipation. POSTOPERATIVE DIAGNOSES: 1) Delayed gastric emptying. 2) Gastritis. 3) Transverse colon polyp. PROCEDURE: Esophagogastroduodenoscopy with cold forceps biopsy and colonoscopy with cold forceps biopsy. SURGEON: Radames Arzola MD ANESTHESIA: Medications were given by the anesthesia department. INDICATIONS: The patient is a 64-year-old white female who presents now for endoscopic evaluation. The patient complains of abdominal pain and bloating, which causes her to be short of breath. She also reports fairly significant constipation issues. The problems have existed for over the last year or two but came to a head when she went to a vacation in [place] where she got admitted to the hospital for the same complaints. The patient now presents for colonoscopic evaluation and EGD. The patient was appraised of the risks of the procedure including risk of perforation, phlebitis, untoward reaction to medication, bleeding, and missed lesions. The patient verbalized her understanding and desire to have procedure performed. DESCRIPTION OF PROCEDURE AND FINDINGS: The patient was given medication by the anesthesia department. She had continuous pulse oximetry, ECG monitoring, and intermittent blood pressure monitoring during the examination. She was placed in the left lateral decubitus position. A bite block was placed, and a flexible Olympus gastroscope was used to intubate the oropharynx. The view of the larynx was normal. The scope was easily introduced into the esophagus, which appeared to be normal throughout its length. The stomach was entered where retained gastric food products were seen. The scope was passed along the greater curvature of the stomach to the antrum, which appeared to be mildly erythematous. The pylorus was encountered and intubated. The duodenum was inspected and found to be essentially normal. The scope was withdrawn towards the stomach, and a retroflexed view was obtained of the lesser curvature, fundus, and cardia regions of the stomach. These appeared to be essentially normal. The scope was then redirected towards the gastric antrum where biopsies were obtained to rule out the presence of Helicobacter pylori organisms. The scope was then removed from the patient. Next, a digital rectal examination was performed and revealed normal anal sphincter tone and no masses. The flexible Olympus videocolonoscope was used to intubate the rectum. A view of the colon was developed sequentially to the cecum. There were large amounts of liquid stool noted throughout the colon. In fact, we suctioned more than a suction canister full of liquid stool. Through flushing and a combination of suctioning, we were able to observe the majority of the colon, but there were large parts of the colon that we were unable to inspect due to the presence of the stool. There was a small polyp found in the transverse colon. This was biopsied to determine the nature of the lesion. No other lesions being obviously visible, the scope was removed from the patient, who tolerated the procedure well and was sent back to outpatient recovery in good condition. Again, the prep was poor to borderline inadequate.
== END 2024-07-21 08:40 | disposition home or self-care (01) ==
LOC: SDC 05:40
PROVIDERS: ATTEND Family Medicine
DX: K31.84 Gastroparesis (principal); R10.9 Unspecified abdominal pain; R14.0 Abdominal distension (gaseous); K59.00 Constipation, unspecified; K29.70 Gastritis, unspecified, without bleeding; D12.3 Benign neoplasm of transverse colon
CPT/HCPCS: 36415; 80048; 85025; J2704

== ENCOUNTER 2024-11-07 07:36 | Day surgery (SDC) | payer MEDICARE, OTHER ==
[2024-11-07] MEDS ORDERED: Sodium Chloride 0.9% 1000 ML 1,000 ML ONE (07:51)
[2024-11-07] MEDS ORDERED: Lactated Ringers 1,000 ML IV SCH (08:00)
[2024-11-07] MEDS: Sodium Chloride 0.9% 1000 ML 1,000 ML IV STA (08:04)
[2024-11-07] MEDS: TETRACAINE 0.5% STERI-UNIT SOL OP ONE ×2 (08:13→08:26)
[2024-11-07] MEDS: Ak-Dilate OPHTHALMIC*** 0.71 ML, Cyclogyl 1% OPHTH SOL 0.71 ML, GATIFLOXACIN 0.5% OPHTH... OP SCH (08:13)
[2024-11-07 08:35] LABS: INR 0.96 (0.8-3.0); PROTIME 10.5 SECONDS (9.4-12.5)
[2024-11-07 08:41] LABS: Calcium 9.6 mg/dL (8.4-10.2); Creatinine 1 1.1 mg/dL (0.52-1.04); EST GLOMERULAR FILTRATION RATE 55.4 ML/MIN; Potassium 4.3 mmol/L (3.5-5.1)
[2024-11-07] MEDS ORDERED: DEXTENZA OP NR (10:00)
[2024-11-07] MEDS ORDERED: VIGAMOX/BSS 0.15% SYR IO NR (10:00)
[2024-11-07] MEDS ORDERED: OMIDRIA 1-0.3% VIAL IO NR (10:00)
[2024-11-07] MEDS ORDERED: BETADINE 5% OPHTHALMIC 30 ML OP NR (10:00)
[2024-11-07] MEDS ORDERED: TRIAMCINOLONE 15 MG/ML INJ INTRAOP NR (10:00)
[2024-11-07] MEDS ORDERED: DEXMEDETOMIDINE 80 MCG/20ML-NS IV NR (10:00)
[2024-11-07] MEDS ORDERED: Zofran 4 MG/2 ML VIAL IV PRN (10:15)
[2024-11-07] MEDS ORDERED: Versed 2 MG/2 ML Injection ONE (11:13)
[2024-11-07] MEDS ORDERED: SUBLIMAZE 100 MCG/2 ML ONE (11:20)
[2024-11-07] MEDS: ACETAZOLAMIDE 250 MG TABLET PO ONE (11:47)
[2024-11-07 11:59] VITALS: BP 109/58; PULSE 59; RESP 16; TEMP 97.6; O2SAT 98
== END 2024-11-07 12:06 | disposition home or self-care (01) ==
LOC: SDC 07:36
PROVIDERS: ATTEND Ophthalmology
DX: H25.812 Combined forms of age-related cataract, left eye (principal); I11.0 Hypertensive heart disease with heart failure; I50.9 Heart failure, unspecified
CPT/HCPCS: 36415; 80048; 85610; 93005; C1780; J1096; J1097; J2250; J3010; A9270-GY